=== PATIENT | female | born 1970 | race Caucasian/White ===

== ENCOUNTER 2022-01-30 08:03 | Inpatient (IN) ==
--- NOTE | 2022-01-12 15:06 | PAT Medication Instructions ---
Medication Instructions Date of Service January 12, 2022 Home Medications anastrozole 1 mg tablet (Arimidex) 1 mg PO QPM atorvastatin 40 mg tablet (Lipitor) 40 mg PO PM buspirone 5 mg tablet 5 mg PO BID PRN cholecalciferol (vitamin D3) 25 mcg (1,000 unit) tablet (Vitamin D3) 25 mcg PO BID clonidine HCl 0.1 mg tablet 0.2 mg PO BID coenzyme Q10 30 mg capsule (CoQ-10) 30 mg PO QAM cyanocobalamin (vitamin B-12) 1,000 mcg/mL injection solution 1,000 mcg IM MON LY diltiazem HCl 240 mg capsule,extended release 24 hr (Cardizem CD) 240 mg PO BID folic acid 1 mg tablet 1 mg PO QAM gabapentin 600 mg tablet 600 mg PO TID ibuprofen 800 mg tablet 800 mg PO TID PRN lisinopril 20 mg tablet 20 mg PO BID omega-3 fatty acids 4,000 mg PO QAM omeprazole 20 mg delayed release,disintegrating tablet 20 mg PO BID oxycodone-acetaminophen 7.5 mg-325 mg tablet (Percocet) 1 tab PO QID PRN polyethylene glycol 3350 17 gram/dose oral powder 17 g PO QAM pramipexole 0.125 mg tablet 0.5 mg PO HS tiotropium 2.5 mcg-olodaterol 2.5 mcg/actuation mist for inhalation (Stiolto Respimat) 2 puff INHALATION BID tizanidine 4 mg tablet 4 mg PO TID PRN trazodone 100 mg tablet 100 mg PO HS venlafaxine 150 mg capsule,extended release 24 hr (Effexor XR) 150 mg PO PM Continue as directed cyanocobalamin (vitamin B-12) 1,000 mcg/mL injection solution 1,000 mcg IM MONTHLY ASK your surgeon for instructions ibuprofen 800 mg tablet 800 mg PO TID PRN STOP taking 2 weeks before surgery coenzyme Q10 30 mg capsule (CoQ-10) 30 mg PO QAM omega-3 fatty acids 4,000 mg PO QAM DO NOT take the morning of surgery cholecalciferol (vitamin D3) 25 mcg (1,000 unit) tablet (Vitamin D3) 25 mcg PO BID folic acid 1 mg tablet 1 mg PO QAM lisinopril 20 mg tablet 20 mg PO BID polyethylene glycol 3350 17 gram/dose oral powder 17 g PO QAM tizanidine 4 mg tablet 4 mg PO TID PRN Take morning of surgery With a small sip of water, OTHERWISE NOTHING TO EAT OR DRINK AFTER MIDNIGHT: buspirone 5 mg tablet 5 mg PO BID PRN (if needed) clonidine HCl 0.1 mg tablet 0.2 mg PO BID diltiazem HCl 240 mg capsule,extended release 24 hr (Cardizem CD) 240 mg PO BID gabapentin 600 mg tablet 600 mg PO TID omeprazole 20 mg delayed release,disintegrating tablet 20 mg PO BID oxycodone-acetaminophen 7.5 mg-325 mg tablet (Percocet) 1 tab PO QID PRN (okay to take up to 4 hours prior to surgery if needed) tiotropium 2.5 mcg-olodaterol 2.5 mcg/actuation mist for inhalation (Stiolto Respimat) 2 puff INHALATION BID Take evening before surgery anastrozole 1 mg tablet (Arimidex) 1 mg PO QPM (unless surgeon directs otherwise) atorvastatin 40 mg tablet (Lipitor) 40 mg PO PM buspirone 5 mg tablet 5 mg PO BID PRN (if needed) cholecalciferol (vitamin D3) 25 mcg (1,000 unit) tablet (Vitamin D3) 25 mcg PO BID clonidine HCl 0.1 mg tablet 0.2 mg PO BID diltiazem HCl 240 mg capsule,extended release 24 hr (Cardizem CD) 240 mg PO BID gabapentin 600 mg tablet 600 mg PO TID lisinopril 20 mg tablet 20 mg PO BID omeprazole 20 mg delayed release,disintegrating tablet 20 mg PO BID oxycodone-acetaminophen 7.5 mg-325 mg tablet (Percocet) 1 tab PO QID PRN (if needed) pramipexole 0.125 mg tablet 0.5 mg PO HS tiotropium 2.5 mcg-olodaterol 2.5 mcg/actuation mist for inhalation (Stiolto Respimat) 2 puff INHALATION BID tizanidine 4 mg tablet 4 mg PO TID PRN (if needed) trazodone 100 mg tablet 100 mg PO HS venlafaxine 150 mg capsule,extended release 24 hr (Effexor XR) 150 mg PO PM Other Notes If you have any questions please call us at [phone] or [phone] or [phone] or [phone]
--- NOTE | 2022-01-17 11:43 | Anesthesiology Consultation ---
Date of Service January 17, 2022 Assessment & Plan (1) Encounter for pre-operative examination: - COVID screening: Per assessment on 01/17: No known COVID-19 positive contacts or current COVID-19 related symptoms. Travel screen negative. Patient vaccinated. Surgeon arranging preop COVID testing. Awaiting results. - RUE limb restriction: s/p right mastectomy - Cardiology office visit (08/17/21): "She was admitted to [facility] in May 2021 with lower GI bleeding. She had a CT scan of her abdomen done that showed ischemic versus inflammatory colitis. CT scan also showed coronary artery calcifications.. Patient currently complains of symptoms of atypical chest pain and exertional shortness of breath, which could be an anginal equivalent. She had a CT scan that showed coronary artery calcifications.. Patient should have a pharmacologic nuclear stress test done and if stress test shows abnormal perfusion, she will need a cardiac catheterization to define coronary anatomy. Continue risk factor modification for CAD prevention." Patient had subsequent nuclear stress echo performed 08/29/2021 which was unremarkable. Chart Review Chart Review: Acceptable Risk for Surgery and Patient seen in Pre Admission Testing Teaching & Discussion Pre-Anesthesia Teaching/Discussion Notes: Instructed NPO after midnight before surgery,except medications with 15 cc of water. Medication instructions provided according to the PAT guidelines. History Surgery Operation Date: 01/30/22 12:25 Proposed Procedures p L5-S1 Decompression and Fusion, Spinal Cord Monitoring - Geovanny Culp, Height/Weight Height: 5 ft 6 in Weight: 85.9 kg Allergies Allergy/AdvReac Type Severity Reaction Status Date / Time amlodipine [From Norvasc] AdvReac Elevated BP Verified 01/16/22 13:16 hydralazine AdvReac Elevated BP Verified 01/16/22 13:16 mirtazapine [From Remeron] AdvReac Vomiting Verified 01/12/22 12:25 prednisone AdvReac Increased Verified 01/16/22 13:16 pain (with oral prednisone) ropinirole [From Requip] AdvReac Vomiting Verified 01/12/22 12:25 Medications Home Medications Medication Instructions Recorded Confirmed Last Taken anastrozole 1 mg tablet (Arimidex) 1 mg PO QPM 01/12/22 01/12/22 Unknown atorvastatin 40 mg tablet (Lipitor) 40 mg PO PM 01/12/22 01/12/22 Unknown buspirone 5 mg tablet 5 mg PO BID PRN 01/12/22 01/12/22 Unknown cholecalciferol (vitamin D3) 25 25 mcg PO BID 01/12/22 01/12/22 Unknown mcg (1,000 unit) tablet (Vitamin D3) clonidine HCl 0.1 mg tablet 0.2 mg PO BID 01/12/22 01/12/22 Unknown coenzyme Q10 30 mg capsule (CoQ-10) 30 mg PO QAM 01/12/22 01/12/22 Unknown cyanocobalamin (vitamin B-12) 1,000 mcg IM MONTHLY 01/12/22 01/12/22 Unknown 1,000 mcg/mL injection solution diltiazem HCl 240 mg 240 mg PO BID 01/12/22 01/12/22 Unknown capsule,extended release 24 hr (Cardizem CD) folic acid 1 mg tablet 1 mg PO QAM 01/12/22 01/12/22 Unknown gabapentin 600 mg tablet 600 mg PO TID 01/12/22 01/12/22 Unknown ibuprofen 800 mg tablet 800 mg PO TID PRN 01/12/22 01/12/22 Unknown lisinopril 20 mg tablet 20 mg PO BID 01/12/22 01/12/22 Unknown omega-3 fatty acids 4,000 mg PO QA 01/12/22 01/12/22 Unknown omeprazole 20 mg delayed 20 mg PO BID 01/12/22 01/12/22 Unknown release,disintegrating tablet oxycodone-acetaminophen 7.5 mg-325 1 tab PO QID PRN 01/12/22 01/12/22 Unknown mg tablet (Percocet) polyethylene glycol 3350 17 17 g PO QA 01/12/22 01/12/22 Unknown gram/dose oral powder pramipexole 0.125 mg tablet 0.5 mg PO 01/12/22 01/12/22 Unknown tiotropium 2.5 mcg-olodaterol 2.5 2 puff INHALATION BID 01/12/22 01/12/22 Unknown mcg/actuation mist for inhalation (Stiolto Respimat) tizanidine 4 mg tablet 4 mg PO TID PRN 01/12/22 01/12/22 Unknown trazodone 100 mg tablet 100 mg PO 01/12/22 01/12/22 Unknown venlafaxine 150 mg 150 mg PO PM 01/12/22 01/12/22 Unknown capsule,extended release 24 hr (Effexor XR) Past Medical History Medical History (Updated 01/17/22 @ 14:12 by Renita Anderson) ADHD no meds Anxiety COPD (chronic obstructive pulmonary disease) Stable Coronary artery calcification Follows with Dr. Piña/cardiology Depression DJD (degenerative joint disease) Fibromyalgia GERD (gastroesophageal reflux disease) History of breast cancer Rt breast Dx 2019 - s/p right mastectomy, on Arimidex History of GI bleed 05/2021 (hospitalized with GIB; [facility]) > no blood transfusion required HLD (hyperlipidemia) HTN (hypertension) IBS (irritable bowel syndrome) Limb alert care status RUE Osteoarthritis Osteoporosis RLS (restless legs syndrome) Spinal stenosis TMJ (temporomandibular joint disorder) Hx issues x several years Exercise / Class Metabolic Activity III < 4 Walking/Shop/Light housework (one FS (no CP, occasional SOB)) Past Family History Family History Other No family history of adverse response to anesthesia Past Surgical History Surgical History History of arthroscopy ankle x 2 History of breast biopsy History of colonoscopy History of esophagogastroduodenoscopy (EGD) History of foot surgery Rt History of reconstruction of right breast multiple surgery - unsuccessful History of reduction surgery of left breast History of repair of left rotator cuff History of right knee joint replacement partial History of right mastectomy History of tonsillectomy and adenoidectomy History of total abdominal hysterectomy and bilateral salpingo-oophorectomy Past Anesthesia History No Hx of Anesthesia Complications Sister: slow to wake History of PONV No Hx of PONV and No Hx of Motion Sickness Social History Smoking Status: Current every day smoker tobacco type: cigarettes Smoking cigarettes per day: 40 cigs/day x 40+ years Do You Dip or Chew Tobacco: No Hx Alcohol Use: No Hx Substance Use: No substance use type: does not use Review of Systems Patient denies chest pain, shortness of breath, fever, chills, cough, wheezing, palpitations. Physical Exam Vital Signs VITALS BP 102/63 P 71 TEMP 98.2 SP02 95%RA RESP 16 PHYSICAL Full cervical extension range of motion. Full TMJ range of motion. TMD 1 finger breaths Mallampati Score 3 Dentition: missing molars, + cap Lungs: clear throughout to auscultation Cardiac: regular rate and rhythm, no murmurs noted Spine: normal Carotid arteries: negative bruit Extremities: no edema Lab Results Anesthesia Preop Results Results Anesthesia Widget: WBC 8.21 K/uL (4.8-10.8) 01/17/22 Hgb 11.8 g/dL (12.0-16.0) L 01/17/22 Hct 36.1 % (37-47) L 01/17/22 Plt 414 K/uL (130-400) H 01/17/22 Na 141 mmol/L (136-145) 01/17/22 K 4.9 mmol/L (3.5-5.1) 01/17/22 Cl 112 mmol/L (98-107) H 01/17/22 CO2 23 mmol/L (21-32) 01/17/22 BUN 15 mg/dl (6-23) 01/17/22 Creat 0.85 mg/dl (0.6-1.2) 01/17/22 Glucose Level 121 mg/dl (70-99(Fasting)) H 01/17/22 PT 10.3 Seconds (9.0-12.0) 01/17/22 PTT 26.2 Seconds (21.0-31.0) 01/17/22 INR 1.0 (0.9-1.1) 01/17/22 Urine Color Yellow 01/17/22 Urine Appearance Clear (Clear) 01/17/22 Urine pH 5.0 (4.5-7.5) 01/17/22 Urine Specific [place] 1.018 (1.000-1.030) 01/17/22 Urine Protein Negative (Negative) 01/17/22 Urine Glucose (UA) Negative (Negative) 01/17/22 Urine Ketones Negative (Negative) 01/17/22 Urine Blood Negative (Negative) 01/17/22 Urine Nitrite Negative (Negative) 01/17/22 Urine Bilirubin Negative (Negative) 01/17/22 Urine Urobilinogen Negative (Negative) 01/17/22 Urine Leukocyte Esterase Negative (Negative) 01/17/22 Blood Type O Negative 01/17/22 Antibody Screen NEGATIVE 01/17/22 Testing Electrocardiogram Date: 06/12/21 Sinus bradycardia 59 bpm. Otherwise normal ECG. Chest X-Ray Date: 01/17/22 FINDINGS: The cardiac mediastinal and hilar silhouettes are within normal limits. Surgical clips project over the right chest wall and axilla. There is no pneumothorax, pleural effusion, airspace consolidation or overt pulmonary edema. Bones of the chest appear grossly intact. Degenerative changes of the shoulders and spine. IMPRESSION: No acute process. Echocardiogram Date: 03/07/21 LVEF 60-65%. Mild TR. Stress Test Date: 08/29/21 Type: nuclear No significant ischemia/infarction. SPECT perfusion images are considered to be within normal limits. LVEF 76%.
[~2022-01-30 08:03] MED LIST: ACETAMINOPHEN 500 MG TAB PO SCH; CeleBREX 200 MG CAP PO SCH; GABAPENTIN 900 MG DOSE PO SCH; LR 15ML/HR IV SCH; SUGAMMADEX SODIUM 200 MG/2 ML VIAL IV ONE; ceFAZolin 2000MG 2,000 MG/15 ML SYR IV SCH
[2022-01-30] MEDS ORDERED: MIDAZOLAM HCL 1 MG/ML 2ML VIAL ONE (08:13)
[2022-01-30] MEDS ORDERED: ONDANSETRON INJ 2 MG/ML 2 ML VIAL ONE (08:13)
[2022-01-30] MEDS ORDERED: ROCURONIUM BROMIDE 10 MG/ML 5 ML VIAL IV ONE (08:13)
[2022-01-30] MEDS ORDERED: PROPOFOL IV EMULSION 10 MG/ML 20 ML VIAL IV ONE (08:13)
[2022-01-30] MEDS ORDERED: fentaNYL citrate 100 MCG/2 ML VIAL ONE ×3 (08:13→11:01)
[2022-01-30] MEDS ORDERED: ePHEDrine sulfate 50 MG/ML AMP IV PRN (09:16)
[2022-01-30] MEDS ORDERED: HYDROmorphone INJ 2 MG/ML SYR/VIAL IV PRN (09:16)
[2022-01-30] MEDS ORDERED: ONDANSETRON INJ 2 MG/ML 2 ML VIAL IV PRN ×2 (09:16→13:13)
[2022-01-30] MEDS ORDERED: ATROPINE SULFATE 0.1 MG/ML 10ML SYR IV PRN (09:16)
[2022-01-30] MEDS ORDERED: EPINEPHrine INJ 1 MG/ML AMP ONE (09:32)
[2022-01-30] MEDS ORDERED: BUPIVACAINE 0.5 % 5 MG/1 ML MPF 30ML VIAL ONE (09:32)
[2022-01-30] MEDS ORDERED: ceFAZolin 330 MG/ML 1 GM VIAL ONE (09:32)
--- NOTE | 2022-01-30 09:37 | History & Physical Bridge Note ---
Date of Service January 30, 2022 History & Physical Bridge Note I have examined the patient, reviewed the History & Physical and in the interval since the performance of the History & Physical I have noted the following changes of clinical significance: no changes noted
--- NOTE | 2022-01-30 09:38 | History & Physical Report ---
Date of Service January 30, 2022 History of Present Illness Chief Complaint: Back and leg pain Primary Care Provider: Clemencia Wilhelm MD This is a 51-year-old female presents with chronic persistent back and leg pain after failing course of nonoperative care she is here for surgical invention. Allergies Allergy/AdvReac Type Severity Reaction Status Date / Time amlodipine [From Norvasc] AdvReac Elevated BP Verified 01/30/22 08:40 hydralazine AdvReac Elevated BP Verified 01/30/22 08:40 mirtazapine [From Remeron] AdvReac Vomiting Verified 01/30/22 08:40 prednisone AdvReac Increased Verified 01/30/22 08:40 pain (with oral prednisone) ropinirole [From Requip] AdvReac Vomiting Verified 01/30/22 08:40 Home Medications Medication Instructions Recorded Confirmed Type anastrozole 1 mg tablet (Arimidex) 1 mg PO QPM 01/12/22 01/30/22 History atorvastatin 40 mg tablet (Lipitor) 40 mg PO PM 01/12/22 01/30/22 History buspirone 5 mg tablet 5 mg PO BID PRN 01/12/22 01/30/22 History cholecalciferol (vitamin D3) 25 25 mcg PO BID 01/12/22 01/30/22 History mcg (1,000 unit) tablet (Vitamin D3) clonidine HCl 0.1 mg tablet 0.2 mg PO BID 01/12/22 01/30/22 History coenzyme Q10 30 mg capsule (CoQ-10) 30 mg PO QAM 01/12/22 01/30/22 History cyanocobalamin (vitamin B-12) 1,000 mcg IM MONTHLY 01/12/22 01/30/22 History 1,000 mcg/mL injection solution diltiazem HCl 240 mg 240 mg PO BID 01/12/22 01/30/22 History capsule,extended release 24 hr (Cardizem CD) folic acid 1 mg tablet 1 mg PO QAM 01/12/22 01/30/22 History gabapentin 600 mg tablet 600 mg PO TID 01/12/22 01/30/22 History ibuprofen 800 mg tablet 800 mg PO TID PRN 01/12/22 01/30/22 History lisinopril 20 mg tablet 20 mg PO BID 01/12/22 01/30/22 History omega-3 fatty acids 4,000 mg PO QAM 01/12/22 01/30/22 History omeprazole 20 mg delayed 20 mg PO BID 01/12/22 01/30/22 History release,disintegrating tablet oxycodone-acetaminophen 7.5 mg-325 1 tab PO QID PRN 01/12/22 01/30/22 History mg tablet (Percocet) polyethylene glycol 3350 17 17 g PO QAM 01/12/22 01/30/22 History gram/dose oral powder pramipexole 0.125 mg tablet 0.5 mg PO HS 01/12/22 01/30/22 History (Mirapex) tiotropium 2.5 mcg-olodaterol 2.5 2 puff INHALATION BID 01/12/22 01/30/22 History mcg/actuation mist for inhalation (Stiolto Respimat) tizanidine 4 mg tablet (Zanaflex) 4 mg PO TID PRN 01/12/22 01/30/22 History trazodone 100 mg tablet 100 mg PO HS 01/12/22 01/30/22 History venlafaxine 150 mg 150 mg PO PM 01/12/22 01/30/22 History capsule,extended release 24 hr (Effexor XR) Past Med/Surg History Medical History ADHD no meds Anxiety COPD (chronic obstructive pulmonary disease) Stable Coronary artery calcification Follows with Dr. Piña/cardiology Depression DJD (degenerative joint disease) Fibromyalgia GERD (gastroesophageal reflux disease) History of breast cancer Rt breast Dx 2019 - s/p right mastectomy, on Arimidex History of GI bleed 05/2021 (hospitalized with GIB; [facility]) > no blood transfusion required HLD (hyperlipidemia) HTN (hypertension) IBS (irritable bowel syndrome) Limb alert care status RUE Osteoarthritis Osteoporosis RLS (restless legs syndrome) Spinal stenosis TMJ (temporomandibular joint disorder) Hx issues x several years Surgical History History of arthroscopy ankle x 2 History of breast biopsy History of colonoscopy History of esophagogastroduodenoscopy (EGD) History of foot surgery Rt History of reconstruction of right breast multiple surgery - unsuccessful History of reduction surgery of left breast History of repair of left rotator cuff History of right knee joint replacement partial History of right mastectomy History of tonsillectomy and adenoidectomy History of total abdominal hysterectomy and bilateral salpingo-oophorectomy Family History Other No family history of adverse response to anesthesia Social History Smoking Status: Current every day smoker Cigarettes Per Day: 40 cigs/day x 40+ years; Second Hand Exposure: Yes; Do You Dip or Chew Tobacco: No; Tobacco Cessation Education Requested by Patient: No Hx Alcohol Use: No Hx Substance Use: No Preferred Language: Turkmen Communication Ability: Effective 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
[2022-01-30] MEDS ORDERED: FLOSEAL HEMOSTATIC MATRIX 10ML TOP ONE (10:24)
--- NOTE | 2022-01-30 11:16 | Operative Report ---
Post Operative Report Pre & Post Diagnosis Operation Date: 01/30/22 10:05 Pre-Op Diagnosis: Radiculopathy, Lumbar Region Post-Op Diagnosis: Radiculopathy, Lumbar Region I identified the patient and participated in the time-out.: Yes Procedure Operation Date: 01/30/22 10:05 Actual Procedures 1 lumbar decompression with bilateral medial facetectomies and foraminotomies L4-L5 L5-S1. #2 posterior spinal fusion L5-S1. #3 placement posterior instrumentation L5-S1. #4 interbody fusion L5-S1. #5 placement of Spira 14 x 26 mm cage at L5-S1. #6 placement locally harvested morselized autograft in the posterior gutters. #7 placement of I factor combined with V toss in the posterior lateral gutters and interbody space. Surgeon Geovanny Culp, Precast Molder Taylor Gonzalez Estimated Blood Loss 100 Findings Consistent with Post-Op Diagnosis Specimens None Indications This is a 51-year-old female who presents above-mentioned diagnosis after failed course of nonoperative care is here for surgical invention. Description of Procedure Patient met with identified informed consent obtained. Patient was then taken to the operative suite underwent intubation and placed in a prone position the Elio on top of the Vincent frame.. All bony prominences well-padded eyes inspected to ensure no external pressure placed upon them. This point lumbar spine was prepped and draped in a sterile fashion. Sharp dissection with the assistance of Bovie cautery to form down to and exposing the lamina and transverse processes of L5 and the sacral ala bilaterally. Obvious facet hypertrophy and overgrowth was appreciated. A complete laminectomy of L5 partial laminectomy of L4 was performed including bilateral medial facetectomies and foraminotomies addressing all lateral recess stenosis as well as a massive facet cyst on the left with significant encroachment of the traversing S1 nerve root. After complete decompression pedicle screws were placed in L5 and S1 levels bilaterally with assistance of fluoroscopy and the proper sized amanda placed. By way of a transit foraminal approach on the left pleat discectomy of L5-S1 was performed endplates curetted to subcortical bleeding bone and a 14 x 26 mm spiral cage filled with I factor tapped in position. The rods then compressed locked into final position bilaterally. The transverse processes of L5 and sacral ala burred to subcortical bleeding bone. I factor combined with V toss was placed in the posterior gutters. 15 round EVANGELINA drain inserted. The incision was then closed with 1 Vicryl the fascia 2-0 Vicryl subcutaneously and 4 Monocryl for final skin closure. Steri-Strip Steri-Strips placed. Patient waken taken PACU stable condition. Please note spinal cord monitoring was utilized at the procedure no changes noted. Lastly Taylor Gonzalez was present out the entire surgery involved the patient positioning complex portions of the surgery and fascial closure. I attest to the content of the Intraoperative Record and any orders documented therein. Any exceptions are noted below.
[2022-01-30] MEDS: fentaNYL citrate 100 MCG/2 ML VIAL IV PRN ×4 (11:40→11:55)
--- NOTE | 2022-01-30 11:43 | Fluoroscopy Report ---
INTRAOPERATIVE RADIOGRAPHS CLINICAL HISTORY: Lumbar spinal fusion. Fluoroscopy time: 20 seconds. FINDINGS: 2 spot fluoroscopic views of the lumbar spine are presented. There has been discectomy at L 5-S1 with laminectomy and posterior fusion at this level. Interpedicular screws are in place. The ort hopedic hardware appears intact. IMPRESSION: Intraoperative images from lumbar spinal fusion surgery as above. Electronically signed by: Nilesh Baker M.D. 01/30/2022 11:42 AM
--- NOTE | 2022-01-30 12:16 | Anesthesiology Progress Note ---
Date of Service January 30, 2022 Anesthesia Post Procedure Vital Signs Vital Signs: Temp Pulse Pulse Resp BP Pulse Ox 01/30/22 12:10 78 12 121/63 97 01/30/22 12:00 83 12 120/61 94 01/30/22 11:50 102 H 14 121/85 96 01/30/22 11:40 113 H 16 158/87 H 97 01/30/22 11:34 97.3 F L 113 H 12 172/117 H 98 01/30/22 08:46 97.7 F 60 18 115/60 96 Pain Intensity Left Lower Back: Pain Intensity: 7 Neck: Pain Intensity: 7 Back: Pain Intensity: 5 Transfer of Care Handoff Completed per policy Notes Mental Status: alert / awake / arousable and participated in evaluation Patient Amnestic to Procedure: Yes Nausea / Vomiting: adequately controlled Pain: adequately controlled Airway Patency, RR, SpO2: stable & adequate BP & HR: stable & adequate Hydration State: stable & adequate Anesthetic Complications: no major complications apparent and Pt Satisfied with anesthetic care
[2022-01-30] MEDS ORDERED: busPIRone 5 MG TAB PO PRN (13:13)
[2022-01-30] MEDS ORDERED: ONDANSETRON 4 MG OD TAB PO PRN (13:13)
[2022-01-30] MEDS ORDERED: LORazepam 2 MG/1 ML VIAL IV PRN (13:13)
[2022-01-30] MEDS ORDERED: CYANOCOBALAMIN 1000 MCG/ML VIAL IM SCH (13:13)
[2022-01-30] MEDS ORDERED: PROMETHAZINE HCL 12.5 MG in SODIUM CHLORIDE 0.9% 50 ML IV PRN (13:13)
[2022-01-30] MEDS ORDERED: hydrOXYzine HCl 25 MG TAB PO PRN (13:13)
[2022-01-30] MEDS ORDERED: SOD PHOSPHATE/SOD BIPHOSPHATE ENEMA 132 ML BTL PR PRN (13:13)
[2022-01-30] MEDS ORDERED: DO NOT ADMINISTER PNEUMOCOCCAL VACCINE PRN (13:13)
[2022-01-30] MEDS ORDERED: ALUMINUM/MAGNESIUM SUSP 30 ML UDC PO PRN (13:13)
[2022-01-30] MEDS ORDERED: diphenhydrAMINE Capsule 25 MG CAP PO PRN (13:13)
[2022-01-30] MEDS ORDERED: ACETAMINOPHEN 1,000 MG/100 ML VIAL IV PRN (13:13)
[2022-01-30] MEDS ORDERED: METOCLOPRAMIDE HCL INJ 5 MG/ML 2 ML VIAL IV PRN (13:13)
[2022-01-30] MEDS ORDERED: ACETAMINOPHEN 500 MG TAB PO PRN (13:13)
[2022-01-30] MEDS ORDERED: DO NOT ADMINISTER FLU VACCINE PRN (13:13)
[2022-01-30] MEDS ORDERED: traMADol HCL 50 MG TABLET PO PRN (13:13)
[2022-01-30] MEDS ORDERED: NALOXONE HCL 0.4 MG/1 ML VIAL/CARP IV PRN (13:13)
[2022-01-30] MEDS ORDERED: bisacodyL 10 MG SUPP PR PRN (13:13)
[2022-01-30] MEDS ORDERED: HYDROmorphone INJ 1 MG/ML SYRINGE IV PRN (13:13)
[2022-01-30] MEDS ORDERED: LORazepam 0.5 MG TAB PO PRN (13:13)
[2022-01-30] MEDS ORDERED: MAGNESIUM HYDROXIDE SUSP 30 ML UDC PO PRN (13:13)
[2022-01-30] MEDS ORDERED: FAMOTIDINE 20 MG TAB PO PRN (13:13)
[2022-01-30] MEDS ORDERED: HYDROmorphone INJ 0.5 MG/0.5 ML SYR IV PRN (13:13)
--- NOTE | 2022-01-30 14:14 | Hospitalist Consultation ---
Date of Consultation January 30, 2022 Assessment & Plan (1) Lumbar radiculopathy: POD #0 - Lumbar decompression and fusion by Dr. Culp - Pain control, PT, DVT Prophylaxis per primary service - Encourage OOB as tolerated, incentive spirometry - Add nicotine patch - Labs in AM (2) COPD (chronic obstructive pulmonary disease): (3) HTN (hypertension): (4) HLD (hyperlipidemia): (5) Depression: (6) Anxiety: (7) Coronary artery calcification: (8) GERD (gastroesophageal reflux disease): (9) RLS (restless legs syndrome): (10) Tobacco abuse: Continue other home meds as appropriate. Pt seen and reviewed with collaborating physician, Dr. Kumari. Plan of care discussed and as outlined above. Thank you for this consultation. We will continue to follow the patient with you. A member of the [facility] Hospitalist Team is available 09/04 via [employer]. Please don't hesitate to reach out with questions. Lorena Garrett PA-C Supervising Physician Co-Signing Physician Notes Patient was seen and examined at bedside independently. Chart reviewed. Case discussed with Sahara DOTSON and agree with the documentation above. In summary, this is a 51 year old female with lumbar radiculopathy who failed non- operative management and hence underwent lumbar decompression L4-S1 with posterior spinal fusion L5-S1 (1 lumbar decompression with bilateral medial facetectomies and foraminotomies L4-L5 L5-S1. #2 posterior spinal fusion L5- S1. #3 placement posterior instrumentation L5-S1. #4 interbody fusion L5-S1. #5 placement of Spira 14 x 26 mm cage at L5-S1. #6 placement locally harvested morselized autograft in the posterior gutters. #7 placement of I factor combined with V toss in the posterior lateral gutters and interbody space). Hospitalist service consulted for post op management. Complaining of pain and waiting for pain medication. No other issues. No N/V. Tolerated jelloes and broth without issues. States she is hoping to walk tonight. AAOX3, sitting in bed, in some discomfort due to pain. Chest clear, heart sounds normal, abdomen benign, no edema, Incision site covered with dressing with EVANGELINA drain draining serosanguineous output. Dr Culp is the primary team. Diet, activities, DVT prophylaxis and pain management per primary team. Continue home BP meds with hold parameters. Nicoderm patch for tobacco abuse. IS. Chronic medical conditions stable. Rest per the note above. History of Present Illness Reason for Consultation: Post-Op Medical Management Requesting Physician: Dr. Geovanny Culp Attending Physician: Geovanny Culp, DO History of Present Illness This is a 51 y/o female with a PMH of HTN, COPD, coronary calcifications on CT, tobacco abuse, anxiety, depression, GI bleed, OA, osteoporosis, spinal stenosis, fibromyalgia, and breast cancer s/p mastectomy and on Arimidex who underwent lumbar decompression and fusion today by Dr. Culp. Pt reports chronic issues with back pain but worsening since June and now interfering with quality of life. Pain would radiate down bilateral legs with associated paraesthesias. Currently, pt reports she is mostly having incisional pain but no pain or paraesthesias in legs. Denies chest pain, palpitations, dyspnea, nausea, vomiting, headache, sore throat, dizziness. Pt was noted last fall to have coronary calcifications on CT so she saw cardiology as part of the pre-operative evaluation and underwent a nuclear stress test in August that was negative for ischemia. Pt reports that she continues to smoke 2 PPD - she denied cravings l ast fall during a one week hospitalization for GI bleed but would like a nicotine patch while admitted this time. She notes chronic dry mouth due to the Arimidex that she has been on for breast cancer - she uses Biotene with relief at home and would also like to use this while admitted. Allergies Allergy/AdvReac Type Severity Reaction Status Date / Time amlodipine [From Norvasc] AdvReac Elevated BP Verified 01/30/22 08:40 hydralazine AdvReac Elevated BP Verified 01/30/22 08:40 mirtazapine [From Remeron] AdvReac Vomiting Verified 01/30/22 08:40 prednisone AdvReac Increased Verified 01/30/22 08:40 pain (with oral prednisone) ropinirole [From Requip] AdvReac Vomiting Verified 01/30/22 08:40 Home Medications Medication Instructions Recorded Confirmed Type anastrozole 1 mg tablet (Arimidex) 1 mg PO QPM 01/12/22 01/30/22 History atorvastatin 40 mg tablet (Lipitor) 40 mg PO PM 01/12/22 01/30/22 History buspirone 5 mg tablet 5 mg PO BID PRN 01/12/22 01/30/22 History cholecalciferol (vitamin D3) 25 25 mcg PO BID 01/12/22 01/30/22 History mcg (1,000 unit) tablet (Vitamin D3) clonidine HCl 0.1 mg tablet 0.2 mg PO BID 01/12/22 01/30/22 History coenzyme Q10 30 mg capsule (CoQ-10) 30 mg PO QAM 01/12/22 01/30/22 History cyanocobalamin (vitamin B-12) 1,000 mcg IM MONTHLY 01/12/22 01/30/22 History 1,000 mcg/mL injection solution diltiazem HCl 240 mg 240 mg PO BID 01/12/22 01/30/22 History capsule,extended release 24 hr (Cardizem CD) folic acid 1 mg tablet 1 mg PO QAM 01/12/22 01/30/22 History gabapentin 600 mg tablet 600 mg PO TID 01/12/22 01/30/22 History ibuprofen 800 mg tablet 800 mg PO TID PRN 01/12/22 01/30/22 History lisinopril 20 mg tablet 20 mg PO BID 01/12/22 01/30/22 History omega-3 fatty acids 4,000 mg PO QAM 01/12/22 01/30/22 History omeprazole 20 mg delayed 20 mg PO BID 01/12/22 01/30/22 History release,disintegrating tablet oxycodone-acetaminophen 7.5 mg-325 1 tab PO QID PRN 01/12/22 01/30/22 History mg tablet (Percocet) polyethylene glycol 3350 17 17 g PO QAM 01/12/22 01/30/22 History gram/dose oral powder pramipexole 0.125 mg tablet 0.5 mg PO HS 01/12/22 01/30/22 History (Mirapex) tiotropium 2.5 mcg-olodaterol 2.5 2 puff INHALATION BID 01/12/22 01/30/22 History mcg/actuation mist for inhalation (Stiolto Respimat) tizanidine 4 mg tablet (Zanaflex) 4 mg PO TID PRN 01/12/22 01/30/22 History trazodone 100 mg tablet 100 mg PO HS 01/12/22 01/30/22 History venlafaxine 150 mg 150 mg PO PM 01/12/22 01/30/22 History capsule,extended release 24 hr (Effexor XR) oxycodone 5 mg tablet 5 mg PO Q6H PRN #30 tab 01/30/22 Rx tramadol 50 mg tablet 50 mg PO Q6H PRN #30 tab 01/30/22 Rx Patient History Medical History (Updated 01/30/22 @ 14:46 by Sahara Garrett PA-C) ADHD no meds Anxiety COPD (chronic obstructive pulmonary disease) Stable Coronary artery calcification Follows with Dr. Piña/cardiology Depression DJD (degenerative joint disease) Fibromyalgia GERD (gastroesophageal reflux disease) History of breast cancer Rt breast Dx 2019 - s/p right mastectomy, on Arimidex History of GI bleed 05/2021 (hospitalized with GIB; [facility]) > no blood transfusion required HLD (hyperlipidemia) HTN (hypertension) IBS (irritable bowel syndrome) Limb alert care status RUE Osteoarthritis Osteoporosis RLS (restless legs syndrome) Spinal stenosis TMJ (temporomandibular joint disorder) Hx issues x several years Surgical History History of arthroscopy ankle x 2 History of breast biopsy History of colonoscopy History of esophagogastroduodenoscopy (EGD) History of foot surgery Rt History of reconstruction of right breast multiple surgery - unsuccessful History of reduction surgery of left breast History of repair of left rotator cuff History of right knee joint replacement partial History of right mastectomy History of tonsillectomy and adenoidectomy History of total abdominal hysterectomy and bilateral salpingo-oophorectomy Family History Other No family history of adverse response to anesthesia Social History Smoking Status: Current every day smoker Cigarettes Per Day: 40 cigs/day x 40+ years; Second Hand Exposure: Yes; Do You Dip or Chew Tobacco: No; Tobacco Cessation Education Requested by Patient: No Hx Alcohol Use: No Hx Substance Use: No Preferred Language: Nepali Communication Ability: Effective Ticket Agent Required: No Beliefs That Will Affect Care: None Current Living Situation: Spouse Feels Safe at Home: Yes Safety Concerns: Feels Safe At This Time Assistive Devices: Glasses Review of Systems Review of Systems: All systems reviewed & are unremarkable except as noted in HPI & below Constitutional: no fever and no chills Eyes: no diplopia Ear, Nose, Mouth, Throat: + dry mouth; no sore throat Respiratory: no dyspnea and no wheezing Cardiovascular: no chest pain, no palpitations and no syncope Gastrointestinal: no abdominal pain, no nausea and no vomiting Musculoskeletal: + back pain Integumentary: no rash and no yellowing of the skin Neurologic: no seizure-like activity, no dizziness and no headache(s) Physical Exam Constitutional: well developed and well nourished; no acute distress Eyes: + anicteric sclerae ENMT: external ear and nose normal, oropharynx normal Neck: trachea midline Respiratory: no respiratory distress and no labored breathing Auscultation: lungs clear to auscultation bilaterally; no rales, no rhonchi and no wheezes Cardiovascular: Rate/Rhythm: regular rate and regular rhythm Vessels: dorsalis pedis pulses present and radial pulses present Extremities: no pedal edema Gastrointestinal (Abdomen): Inspection/Auscultation: normal bowel sounds; abdomen not distended Percussion/Palpation: abdomen soft; abdomen nontender Musculoskeletal: Head/Neck/Chest: normocephalic, head atraumatic and neck supple Skin: dressing in lumbar area is C/D/I Neurologic: moves all extremities; not confused Speech / Cognition: normal speech Psychiatric: A+Ox3, euthymic affect Results & Data Results & Data ([facility]) Vital Signs (Past 12 Hours) Vital Signs Temp Pulse Pulse Resp BP Pulse Ox 01/30/22 13:10 36.5 C 72 16 130/73 100 01/30/22 12:40 36.6 C 91 H 16 116/80 92 01/30/22 12:30 36.2 C L 82 21 146/72 H 97 01/30/22 12:20 36.2 C L 78 13 136/69 97 01/30/22 12:10 78 12 121/63 97 01/30/22 12:00 83 12 120/61 94 01/30/22 11:50 102 H 14 121/85 96 01/30/22 11:40 113 H 16 158/87 H 97 01/30/22 11:34 36.3 C L 113 H 12 172/117 H 98 01/30/22 08:46 36.5 C 60 18 115/60 96 Laboratory Results 01/30/22 08:54 SARS-CoV-2, RNA, NAAT NEGATIVE Medications Administered Acetaminophen (Acetaminophen 500 Mg Tab) 1,000 mg PO PREOP RUFUS Stop: 01/30/22 18:00 Last Admin: 01/30/22 09:13 Dose: 1,000 mg Documented by: [id number] Celecoxib (Celebrex 200 Mg Cap) 200 mg PO PREOP RUFUS Stop: 01/30/22 18:00 Last Admin: 01/30/22 09:13 Dose: 200 mg Documented by: [id number] Fentanyl Citrate (Fentanyl Citrate 100 Mcg/2 Ml Vial) 50 mcg IV Q5M PRN PRN Reason: PACU Use Only-Pain Stop: 01/30/22 17:16 Last Admin: 01/30/22 11:55 Dose: 50 mcg Documented by: [id number] Admin: 01/30/22 11:50 Dose: 50 mcg Documented by: [id number] Admin: 01/30/22 11:45 Dose: 50 mcg Documented by: [id number] Admin: 01/30/22 11:40 Dose: 50 mcg Documented by: [id number] Gabapentin (Gabapentin 900 Mg Dose) 900 mg PO PREOP RUFUS Stop: 01/30/22 18:00 Last Admin: 01/30/22 09:13 Dose: 300 mg Documented by: [id number] Cefazolin Sodium (Ancef 2000mg) 2,000 mg in 15 mls @ 3.75 mls/min IV PREOP RUFUS; Protocol Stop: 01/30/22 18:00 Last Admin: 01/30/22 10:10 Dose: 3.75 mls/min Documented by: [id number] Lactated Ringer's (Lr) 1,000 mls @ 15 mls/hr IV .Q24H RUFUS Stop: 01/31/22 05:59 Last Infusion: 01/30/22 09:48 Dose: 0 mls/hr Documented by: [id number] Admin: 01/30/22 09:13 Dose: 15 mls/hr Documented by: [id number] Discontinued Medications Bupivacaine HCl (Bupivacaine 0.5 % 5 Mg/1 Ml Mpf 30ml Vial) Confirm Administered Dose 30 ml .ROUTE .STK-MED ONE Stop: 01/30/22 09:33 Last Admin: 01/30/22 10:23 Dose: 15 ml Documented by: [id number] Cefazolin Sodium (Cefazolin 330 Mg/Ml 1 Gm Vial) Confirm Administered Dose 990 mg .ROUTE .STK-MED ONE Stop: 01/30/22 09:33 Last Admin: 01/30/22 10:23 Dose: 990 mg Documented by: [id number] Epinephrine HCl (Epinephrine Inj 1 Mg/Ml Amp) Confirm Administered Dose 1 mg .ROUTE .STK-MED ONE Stop: 01/30/22 09:33 Last Admin: 01/30/22 10:23 Dose: 0.15 mg Documented by: [id number] Miscellaneous ( Floseal Hemostatic Matrix 10ml) 10 ml TOP ONCE ONE Stop: 01/30/22 10:25 Last Admin: 01/30/22 11:08 Dose: 10 ml Documented by: [id number]
[2022-01-30] MEDS ORDERED: NON-FORMULARY PATIENT'S OWN MED SCH (14:30)
[2022-01-30] MEDS: tiZANidine HCL 4 MG TABLET PO PRN ×2 (15:38→23:58)
[2022-01-30] MEDS: GABAPENTIN 600 MG TAB PO SCH ×2 (15:39→20:07)
[2022-01-30] MEDS: NICOTINE 21 MG/24 HR TDSY TD SCH (16:04)
[2022-01-30] MEDS: oxyCODONE HCL IR 5 MG TAB (IMMEDIATE RELEASE) PO PRN ×2 (17:28→21:30)
[2022-01-30] MEDS: ceFAZolin 2000MG 2,000 MG/15 ML SYR IV SCH (18:22)
[2022-01-30] MEDS: LACTATED RINGER'S 1,000 ML IV SCH (18:23)
[2022-01-30] MEDS: CHOLECALCIFEROL 1,000 UNITS 25 MCG TAB PO SCH (20:05)
[2022-01-30] MEDS: ANASTROZOLE 1 MG TAB PO SCH (20:05)
[2022-01-30] MEDS: ATORVASTATIN 40 MG TAB PO SCH (20:05)
[2022-01-30] MEDS: cloNIDine HCL 0.1 MG TAB PO SCH (20:06)
[2022-01-30] MEDS: DOCUSATE SODIUM/SENNA 50/8.6MG TAB PO SCH (20:06)
[2022-01-30] MEDS: dilTIAZem HCL 240 MG CAPCR PO SCH (20:06)
[2022-01-30] MEDS: PANTOprazole 40 MG TAB PO SCH (20:07)
[2022-01-30] MEDS: lisinopril 20 MG TAB PO SCH (20:07)
[2022-01-30] MEDS: PRAMIPEXOLE DIHYDROCHLO 0.5 MG TAB PO SCH (20:08)
[2022-01-30] MEDS: traZODone HCL 100 MG TAB PO SCH (20:08)
[2022-01-30] MEDS: VENLAFAXINE HCL XR 150 MG CAPXR PO SCH (20:08)
[2022-01-31] MEDS: ceFAZolin 2000MG 2,000 MG/15 ML SYR IV SCH (01:41)
[2022-01-31] MEDS: oxyCODONE HCL IR 5 MG TAB (IMMEDIATE RELEASE) PO PRN ×6 (01:41→22:51)
[2022-01-31] MEDS: POLYETHYLENE (MIRALAX) 17 GM PACK PO SCH ×4 (05:09→23:31)
[2022-01-31] MEDS: LACTATED RINGER'S 1,000 ML IV SCH (06:15)
[2022-01-31 07:12] LABS: Basophils # (auto) 0.01 K/uL (0-0.2); Basophils % (auto) 0.1 %; Eosinophils # (auto) 0.07 K/uL (0-0.5); Eosinophils % (auto) 0.7 %; Hematocrit (blood only) 31.2 % (37-47); Immature Granulocytes # (auto) 0.06 K/uL (0.00-0.02); Immature Granulocytes % (auto) 0.6 %; Lymphocytes # (auto) 1.23 K/uL (1.2-3.4); Lymphocytes % (auto) 11.4 %; Mean Corpuscular Hemoglobin 31.3 pg (25-34); Mean Corpuscular Hgb Conc 32.1 g/dL (32-36); Mean Corpuscular Volume 97.8 fL (80-100); Mean Platelet Volume 8.6 fL (7.4-10.4); Monocytes # (auto) 0.77 K/uL (0.11-0.59); Monocytes % (auto) 7.2 %; Neutrophils # (auto) 8.61 K/uL (1.4-6.5); Platelet Count 358 K/uL (130-400); RDW Coefficient of Variation 14.5 % (11.5-14.5); RDW Standard Deviation 52.1 fL (36.4-46.3); Red Blood Count 3.19 M/uL (4.2-5.4); White Blood Count 10.75 K/uL (4.8-10.8)
[2022-01-31 07:26] LABS: BUN Creatinine Ratio 14.7 (10-20); Calcium 9.2 mg/dl (8.5-10.1); Creatinine Clr Calc Pharmacy 64.9 ml/min; Est GFR (African American) 67.1 ml/min; Est GFR (Non-African American) 57.9 ml/min; Potassium 4.8 mmol/L (3.5-5.1)
[2022-01-31] MEDS ORDERED: COENZYME Q10 30 MG PO SCH (09:00)
[2022-01-31] MEDS ORDERED: POLYETHYLENE (MIRALAX) 17 GM PACK PO SCH (09:00)
[2022-01-31] MEDS: FOLIC ACID 1 MG TAB PO SCH (09:12)
[2022-01-31] MEDS: NICOTINE 21 MG/24 HR TDSY TD SCH (09:13)
[2022-01-31] MEDS: PANTOprazole 40 MG TAB PO SCH ×2 (09:13→20:50)
[2022-01-31] MEDS: CHOLECALCIFEROL 1,000 UNITS 25 MCG TAB PO SCH ×2 (09:14→20:50)
[2022-01-31] MEDS: GABAPENTIN 600 MG TAB PO SCH ×3 (09:14→20:49)
[2022-01-31] MEDS: UMECLIDINIUM/VILANTEROL 62.5/25MCG 7 PUFFS/INHALER INH SCH (09:17)
[2022-01-31] MEDS: lisinopril 20 MG TAB PO SCH ×2 (09:17→18:46)
[2022-01-31] MEDS: dilTIAZem HCL 240 MG CAPCR PO SCH ×2 (09:17→18:45)
[2022-01-31] MEDS: cloNIDine HCL 0.1 MG TAB PO SCH ×2 (09:17→18:45)
[2022-01-31] MEDS: dexAMETHasone 6 MG in SYRINGE 0 ML IV SCH (09:20)
--- NOTE | 2022-01-31 12:12 | Orthopedic Progress Note ---
Date of Service January 31, 2022 Assessment & Plan (1) Lumbar radiculopathy: Plan: At this time we will continue physical therapy monitor her EVANGELINA operatively discharge home in the next few days. Admission and Anticipated Discharge Date Admission Date: January 30, 2022 Subjective Patient's back pain is controlled leg symptoms markedly improved Physical Exam Physical Exam: Patient is in the chair at the bedside is good strength testing. Appears comfortable. Results & Data ([facility]) Vital Signs (Past 12 Hours) Vital Signs Temp Pulse Resp BP Pulse Ox 01/31/22 11:58 37.1 C 54 L 16 84/58 L 93 01/31/22 07:51 36.5 C 50 L 16 82/50 L 94 01/31/22 04:00 36.5 C 56 L 14 88/42 L 96
--- NOTE | 2022-01-31 17:06 | Hospitalist Progress Note ---
Date of Service January 31, 2022 Assessment & Plan (1) Lumbar radiculopathy: Plan: POD #1 - Lumbar decompression and fusion by Dr. Culp - Pain control, PT, DVT Prophylaxis per primary service - Encourage OOB as tolerated, incentive spirometry (2) COPD (chronic obstructive pulmonary disease): Plan: not in exacerbation. still using tobacco and contemplative phase. (3) HTN (hypertension): Plan: at goal, cont current medications (4) HLD (hyperlipidemia): Plan: chronic, stable. Cont current therapy (5) Depression: Plan: chronic, stable. Cont current medications. I educated patient on danger of polypharmacy and she verbalized understanding. (6) Anxiety: Plan: chronic, stable. Plan as above (7) RLS (restless legs syndrome): Plan: chronic, stable. Cont current therapy per home regimen. (8) Tobacco abuse: Plan: contemplative phase. Nicotine patch Plan: DVT proph: SCDs/ambulation in post op state Full Code Dispo-to home per Ortho service. Thank you for this consultation. Pam Brown DO [facility] Hospitalist Admission and Anticipated Discharge Date Admission Date: January 30, 2022 Subjective 51-year-old female status post L5/S1 decompression and fusion yesterday Pain managed with oxycodone Postoperative hypotension with an improvement in blood pressure throughout the day Patient is a smoker and resistant to quitting "It is what it is" despite known issues with breast cancer Tolerating p.o. Reports her feet are feeling better and less like she is walking on rocks. Review of Systems Review of Systems: All systems were reviewed and negative except as indicated above Physical Exam Physical Exam: CONSTITUTIONAL: WNWD, vitals as above, generally well- appearing, NAD EYES: normal conjunctivae, no scleral icterus ENT: external ear and nose normal, MMM NECK: trachea midline RESPIRATORY: clear to auscultation bilaterally, no crackles, rales or wheezes, normal respiratory effort CARDIOVASCULAR: regular rate and rhythm, S1 and 2 heard without murmurs, gallops or rubs, no JVD, no peripheral edema CHEST: inspection of chest was normal GASTROINTESTINAL: soft, nontender, ND, no guarding, back brace in place MUSCULOSKELETAL: strength 5/5 throughout, head is normocephalic and atraumatic SKIN: warm and dry, unable to examine back incision 2/[address] NEUROLOGIC: no facial palsy, no dysarthria. CN 2-12 grossly intact, no sensory deficit, normal cognition, normal speech, no tremor, no gross focal deficitss. PSYCHIATRIC: alert cooperative and oriented to person, place and time. Results & Data Results & Data ([facility]) Vital Signs (Past 12 Hours) Vital Signs Temp Pulse Pulse Resp BP Pulse Ox 01/31/22 15:18 36.6 C 57 L 16 117/69 94 01/31/22 11:58 37.1 C 54 L 16 84/58 L 93 01/31/22 07:51 36.5 C 50 L 16 82/50 L 94 Laboratory Results Short CBC 01/31/22 Range/Units 06:31 WBC 10.75 (4.8-10.8) K/uL Hgb 10.0 L (12.0-16.0) g/dL Hct 31.2 L (37-47) % Plt Count 358 (130-400) K/uL BMP 01/31/22 06:31 Sodium 134 L Potassium 4.8 Chloride 103 Carbon Dioxide 26 BUN 16 Creatinine 1.09 Glucose 113 H Calcium 9.2 Medications Administered Current Inpatient Medications Acetaminophen (Acetaminophen 500 Mg Tab) 1,000 mg PO Q8H PRN PRN Reason: MILD Pain Scale 1,2,3 & Pre PT Stop: 03/01/22 13:12 Al Hydrox/Mg Hydrox/Simethicone (Aluminum/Magnesium Susp 30 Ml Udc) 30 ml PO Q6H PRN PRN Reason: Dyspepsia Stop: 03/01/22 13:12 Anastrozole (Anastrozole 1 Mg Tab) 1 mg PO QPM RUFUS Stop: 03/01/22 20:59 Last Admin: 01/30/22 20:05 Dose: 1 mg Documented by: Atorvastatin Calcium (Atorvastatin 40 Mg Tab) 40 mg PO PM RUFUS Stop: 03/01/22 20:59 Last Admin: 01/30/22 20:05 Dose: 40 mg Documented by: Bisacodyl (Bisacodyl 10 Mg Supp) 10 mg NC DAILY PRN PRN Reason: Constipation Stop: 03/01/22 13:12 Buspirone HCl (Buspirone 5 Mg Tab) 5 mg PO BID PRN PRN Reason: Anxiety Stop: 03/01/22 13:12 Clonidine HCl (Clonidine Hcl 0.1 Mg Tab) 0.2 mg PO Q12H [facility] Stop: 03/02/22 17:14 Last Admin: 01/31/22 18:45 Dose: 0.2 mg Documented by: Diltiazem HCl (Diltiazem Hcl 240 Mg Capcr) 240 mg PO Q12H [facility] Stop: 03/02/22 17:14 Last Admin: 01/31/22 18:45 Dose: 240 mg Documented by: Diphenhydramine HCl (Diphenhydramine Capsule 25 Mg Cap) 25 mg PO Q6H PRN PRN Reason: Allergic Rhinitis/Insomnia Stop: 03/01/22 13:12 Famotidine (Famotidine 20 Mg Tab) 20 mg PO Q12H PRN PRN Reason: Dyspepsia Stop: 03/01/22 13:12 Folic Acid (Folic Acid 1 Mg Tab) 1 mg PO QAM [facility] Stop: 03/02/22 08:59 Last Admin: 01/31/22 09:12 Dose: 1 mg Documented by: Gabapentin (Gabapentin 600 Mg Tab) 600 mg PO TID [facility] Stop: 03/01/22 13:59 Last Admin: 01/31/22 14:15 Dose: 600 mg Documented by: Hydromorphone HCl (Hydromorphone Inj 0.5 Mg/0.5 Ml Syr) 0.5 mg IV Q3H PRN PRN Reason: MODERATE Pain (Scale 4,5,6) & Pre PT Stop: 02/13/22 13:12 Hydromorphone HCl (Hydromorphone Inj 1 Mg/Ml Syringe) 1 mg IV Q3H PRN PRN Reason: SEVERE Pain (Scale 7,8,9,10) Stop: 02/13/22 13:12 Hydroxyzine HCl (Hydroxyzine Hcl 25 Mg Tab) 25 mg PO Q8H PRN PRN Reason: Anxiety Stop: 03/01/22 13:12 Promethazine HCl 12.5 mg/ (Sodium Chloride) 50.5 mls @ 202 mls/hr IV Q6H PRN PRN Reason: Nausea &/or Vomiting Stop: 03/01/22 13:12 Acetaminophen (Ofirmev) 1,000 mg in 100 mls @ 400 mls/hr IV Q8H PRN PRN Reason: Pain Rating 1-3 & Pre PT Stop: 02/02/22 13:12 Dexamethasone 6 mg/ Syringe 1.5 mls @ 1 mls/min IV DAILY [facility] Stop: 02/02/22 09:02 Last Admin: 01/31/22 09:20 Dose: 1 mls/min Documented by: Influenza Virus Vaccine Quadrival (Do Not Administer Flu Vaccine) 1 ea N/A PRN PRN PRN Reason: Notification Stop: 03/01/22 13:12 Lisinopril (Lisinopril 20 Mg Tab) 20 mg PO Q12H RUFUS Stop: 03/02/22 17:14 Last Admin: 01/31/22 18:46 Dose: 20 mg Documented by: Lorazepam (Lorazepam 0.5 Mg Tab) 0.5 mg PO Q8H PRN PRN Reason: Sedation/Anxiety Stop: 03/01/22 13:12 Lorazepam (Lorazepam 2 Mg/1 Ml Vial) 0.5 mg IV Q8H PRN PRN Reason: Sedation/Anxiety Stop: 03/01/22 13:12 Magnesium Hydroxide (Magnesium Hydroxide Susp 30 Ml Udc) 30 ml PO Q24H PRN PRN Reason: Constipation Stop: 03/01/22 13:12 Metoclopramide HCl (Metoclopramide Hcl Inj 5 Mg/Ml 2 Ml Vial) 10 mg IV Q6H PRN PRN Reason: Nausea &/or Vomiting Stop: 03/01/22 13:12 Miscellaneous (Remove Nicoderm Patch) 1 ea N/A DAILY@0809 [facility] Stop: 03/02/22 08:58 Last Admin: 01/31/22 09:21 Dose: 1 ea Documented by: Naloxone HCl (Naloxone Hcl 0.4 Mg/1 Ml Vial/Carp) 0.1 mg IV Q5M PRN PRN Reason: Oversedation/Resp depression Stop: 03/01/22 13:12 Nicotine (Nicotine 21 Mg/24 Hr Tdsy) 21 mg TD QAM [facility] Stop: 03/01/22 14:29 Last Admin: 01/31/22 09:13 Dose: 21 mg Documented by: Ondansetron HCl (Ondansetron Inj 2 Mg/Ml 2 Ml Vial) 4 mg IV Q6H PRN PRN Reason: Nausea &/or Vomiting Stop: 03/01/22 13:12 Ondansetron HCl (Ondansetron 4 Mg Od Tab) 4 mg PO Q6H PRN PRN Reason: Nausea Stop: 03/01/22 13:12 Oxycodone HCl (Oxycodone Hcl Ir 5 Mg Tab (Immediate Release)) 5 - 10 mg PO Q4H PRN PRN Reason: Pain & Pre PT Stop: 02/13/22 13:12 Last Admin: 01/31/22 18:46 Dose: 10 mg Documented by: Pantoprazole Sodium (Pantoprazole 40 Mg Tab) 40 mg PO BID [facility] Stop: 03/01/22 20:59 Last Admin: 01/31/22 09:13 Dose: 40 mg Documented by: Pneumococcal Polyvalent Vaccine (Do Not Administer Pneumococcal Vaccine) 1 ea N/A PRN PRN PRN Reason: Notification Stop: 03/01/22 13:12 Polyethylene Glycol (Polyethylene (Miralax) 17 Gm Pack) 17 gm PO Q6 [facility] Stop: 03/02/22 05:59 Last Admin: 01/31/22 18:47 Dose: 17 gm Documented by: Pramipexole Dihydrochloride (Pramipexole Dihydrochlo 0.5 Mg Tab) 0.5 mg PO [facility] Stop: 03/01/22 20:59 Last Admin: 01/30/22 20:08 Dose: 0.5 mg Documented by: Senna/Docusate Sodium (Docusate Sodium/Senna 50/8.6mg Tab) 2 tab PO [facility] Stop: 03/01/22 20:59 Last Admin: 01/30/22 20:06 Dose: 2 tab Documented by: Sodium Biphosphate/Sodium Phosphate (Sod Phosphate/Sod Biphosphate Enema 132 Ml Btl) 132 ml NC ONE PRN PRN Reason: Constipation Stop: 03/01/22 13:12 Tizanidine HCl (Tizanidine Hcl 4 Mg Tablet) 4 mg PO TID PRN PRN Reason: Muscle Spasm Stop: 03/01/22 13:12 Last Admin: 01/30/22 23:58 Dose: 4 mg Documented by: Tramadol HCl (Tramadol Hcl 50 Mg Tablet) 50 - 100 mg PO Q4H PRN PRN Reason: Moderate-Severe pain & Pre PT Stop: 03/01/22 13:12 Trazodone HCl (Trazodone Hcl 100 Mg Tab) 100 mg PO [facility] Stop: 03/01/22 20:59 Last Admin: 01/30/22 20:08 Dose: 100 mg Documented by: Umeclidinium/Vilanterol (Umeclidinium/Vilanterol 62.5/25mcg 7 Puffs/Inhaler) 1 puffs INH DAILY RUFUS Stop: 03/02/22 08:59 Last Admin: 01/31/22 09:17 Dose: Not Given Documented by: Venlafaxine HCl (Venlafaxine Hcl Xr 150 Mg Capxr) 150 mg PO PM RUFUS Stop: 03/01/22 20:59 Last Admin: 01/30/22 20:08 Dose: 150 mg Documented by: Vitamin D (Cholecalciferol 1,000 Units 25 Mcg Tab) 1,000 units PO BID RUFUS Stop: 03/01/22 20:59 Last Admin: 01/31/22 09:14 Dose: 1,000 units Documented by:
[2022-01-31] MEDS: VENLAFAXINE HCL XR 150 MG CAPXR PO SCH (20:49)
[2022-01-31] MEDS: tiZANidine HCL 4 MG TABLET PO PRN (20:49)
[2022-01-31] MEDS: ANASTROZOLE 1 MG TAB PO SCH (20:50)
[2022-01-31] MEDS: DOCUSATE SODIUM/SENNA 50/8.6MG TAB PO SCH (20:50)
[2022-01-31] MEDS: ATORVASTATIN 40 MG TAB PO SCH (20:50)
[2022-01-31] MEDS: traZODone HCL 100 MG TAB PO SCH (20:50)
[2022-01-31] MEDS: PRAMIPEXOLE DIHYDROCHLO 0.5 MG TAB PO SCH (22:29)
[2022-02-01] MEDS: lisinopril 20 MG TAB PO SCH (04:41)
[2022-02-01] MEDS: cloNIDine HCL 0.1 MG TAB PO SCH (04:41)
[2022-02-01] MEDS: dilTIAZem HCL 240 MG CAPCR PO SCH (04:41)
[2022-02-01] MEDS: POLYETHYLENE (MIRALAX) 17 GM PACK PO SCH ×2 (04:42→12:10)
[2022-02-01] MEDS: oxyCODONE HCL IR 5 MG TAB (IMMEDIATE RELEASE) PO PRN ×3 (06:10→14:43)
[2022-02-01] MEDS: NICOTINE 21 MG/24 HR TDSY TD SCH (07:27)
[2022-02-01] MEDS: CHOLECALCIFEROL 1,000 UNITS 25 MCG TAB PO SCH (07:28)
[2022-02-01] MEDS: PANTOprazole 40 MG TAB PO SCH (07:29)
[2022-02-01] MEDS: GABAPENTIN 600 MG TAB PO SCH ×2 (07:29→13:10)
[2022-02-01] MEDS: FOLIC ACID 1 MG TAB PO SCH (07:29)
[2022-02-01] MEDS: dexAMETHasone 6 MG in SYRINGE 0 ML IV SCH (07:30)
[2022-02-01] MEDS: UMECLIDINIUM/VILANTEROL 62.5/25MCG 7 PUFFS/INHALER INH SCH (07:31)
--- NOTE | 2022-02-01 10:26 | Discharge Summary ---
Date of Service February 01, 2022 Admission HPI Per Admitting Provider This is a 51-year-old female presents with chronic persistent back and leg pain after failing course of nonoperative care she is here for surgical invention. Admission Exam (Per Admitting) Constitutional WD/WN, vitals as above Eyes PERRL, conjunctivae normal, anicteric sclerae Neck normal visual inspection Respiratory normal respiratory effort Cardiovascular Extremities: normal capillary refill Gastrointestinal (Abdomen) Inspection/Auscultation: abdomen normal to inspection Musculoskeletal Extremities: extremities normal to inspection Skin no rashes, warm and dry Neurologic normal touch/pain/proprioception and moves all extremities Psychiatric A+Ox3, euthymic affect Discharge Data Consultations 01/30/22 13:13 Consult Hospitalist Routine Procedures Performed Operation Date: 01/30/22 10:05 Actual Procedures p L5-S1 Decompression and Fusion, Interbody cage, Application of I-Factor, Spinal Cord Monitoring(Not Applicable) - Geovanny Culp DO Hospital Course (1) Lumbar radiculopathy: Patient had an uncomplicated postoperative hospital course. She is being discharged to rehab if bed is available on postoperative day 2. She is making progress in physical therapy. Pain is controlled. EVANGELINA output is diminishing each shift. Lab values have been stable.
== END 2022-02-01 15:44 | DRG 455 ==
LOC: ASU 08:03 → 3E 11:21

== ENCOUNTER 2022-12-08 10:41 | Inpatient (IN) ==
--- NOTE | 2022-11-08 11:36 | PAT Medication Instructions ---
Medication Instructions Date of Service November 08, 2022 Home Medications anastrozole 1 mg tablet (Arimidex) 1 mg PO QPM atorvastatin 40 mg tablet (Lipitor) 40 mg PO PM cholecalciferol (vitamin D3) 25 mcg (1,000 unit) tablet (Vitamin D3) 25 mcg PO BID cyanocobalamin (vitamin B-12) 1,000 mcg/mL injection solution 1,000 mcg IM MONTHLY folic acid 1 mg tablet 1 mg PO QAM gabapentin 600 mg tablet 600 mg PO TID omeprazole 20 mg delayed release,disintegrating tablet 20 mg PO BID oxycodone-acetaminophen 7.5 mg-325 mg tablet (Percocet) 1 tab PO QID PRN Pain tizanidine 4 mg tablet (Zanaflex) 4 mg PO TID PRN Muscle Spasm trazodone 100 mg tablet 100 mg PO HS venlafaxine 150 mg capsule,extended release 24 hr (Effexor XR) 150 mg PO PM albuterol sulfate 90 mcg/actuation aerosol inhaler 1 inh inhalation QID PRN SHORT OF BREATH denosumab 60 mg/mL subcutaneous syringe (Prolia) 60 mg subcut UD furosemide 20 mg tablet 20 mg PO DAILY PRN LEG SWELLING lisinopril 20 mg tablet 20 mg PO QAM metformin 500 mg tablet 500 mg PO QPM oxycodone 7.5 mg tablet,oral ONLY (not for feeding tubes) 7.5 mg PO UD pramipexole 0.125 mg tablet (Mirapex) 0.125 mg PO UD 0 tiotropium 2.5 mcg-olodaterol 2.5 mcg/actuation mist for inhalation (Stiolto Respimat) 2 puff inhalation DAILY PRN SHORT OF BREATH ASK your prescriber and surgeon anastrozole 1 mg tablet (Arimidex) 1 mg PO QPM denosumab 60 mg/mL subcutaneous syringe (Prolia) 60 mg subcut UD DO NOT take the morning of surgery cholecalciferol (vitamin D3) 25 mcg (1,000 unit) tablet (Vitamin D3) 25 mcg PO BID cyanocobalamin (vitamin B-12) 1,000 mcg/mL injection solution 1,000 mcg IM MONTHLY folic acid 1 mg tablet 1 mg PO QAM tizanidine 4 mg tablet (Zanaflex) 4 mg PO TID PRN Muscle Spasm furosemide 20 mg tablet 20 mg PO DAILY PRN LEG SWELLING lisinopril 20 mg tablet 20 mg PO QAM Take morning of surgery With a small sip of water, OTHERWISE NOTHING TO EAT OR DRINK AFTER MIDNIGHT: gabapentin 600 mg tablet 600 mg PO TID omeprazole 20 mg delayed release,disintegrating tablet 20 mg PO BID oxycodone-acetaminophen 7.5 mg-325 mg tablet (Percocet) 1 tab PO QID PRN Pain (if needed) albuterol sulfate 90 mcg/actuation aerosol inhaler 1 inh inhalation QID PRN SHORT OF BREATH (use if needed; please bring rescue inhaler with you to hospital day of surgery if possible) oxycodone 7.5 mg tablet,oral ONLY (not for feeding tubes) 7.5 mg PO UD tiotropium 2.5 mcg-olodaterol 2.5 mcg/actuation mist for inhalation (Stiolto Respimat) 2 puff inhalation DAILY PRN SHORT OF BREATH (if needed) Take evening before surgery atorvastatin 40 mg tablet (Lipitor) 40 mg PO PM cholecalciferol (vitamin D3) 25 mcg (1,000 unit) tablet (Vitamin D3) 25 mcg PO BID gabapentin 600 mg tablet 600 mg PO TID omeprazole 20 mg delayed release,disintegrating tablet 20 mg PO BID oxycodone-acetaminophen 7.5 mg-325 mg tablet (Percocet) 1 tab PO QID PRN Pain (if needed) tizanidine 4 mg tablet (Zanaflex) 4 mg PO TID PRN Muscle Spasm (if needed) trazodone 100 mg tablet 100 mg PO HS venlafaxine 150 mg capsule,extended release 24 hr (Effexor XR) 150 mg PO PM albuterol sulfate 90 mcg/actuation aerosol inhaler 1 inh inhalation QID PRN SHORT OF BREATH (if needed) furosemide 20 mg tablet 20 mg PO DAILY PRN LEG SWELLING (if needed) metformin 500 mg tablet 500 mg PO QPM oxycodone 7.5 mg tablet,oral ONLY (not for feeding tubes) 7.5 mg PO UD pramipexole 0.125 mg tablet (Mirapex) 0.125 mg PO UD tiotropium 2.5 mcg-olodaterol 2.5 mcg/actuation mist for inhalation (Stiolto Respimat) 2 puff inhalation DAILY PRN SHORT OF BREATH (if needed) Other Notes If you have any questions please call us at [phone] or [phone] or [phone] or [phone]
--- NOTE | 2022-11-13 13:01 | Anesthesiology Consultation ---
Date of Service November 13, 2022 Assessment & Plan (1) Encounter for pre-operative examination: Plan - awaiting cardiology clearance. - pt overdue to see cardiology, was to return 6 months after 08/17/21 visit. Pt and surgeon's office made aware cardio clearance will be needed. - anesthesia reaction: pt reports post-op bradycardia and hypotension with multiple previous surgeries, unable to provide additional details/no available records. - right arm restriction. Chart Review Chart Review: Pending: Refer to Additional Notes / Consult section and Patient seen in Pre Admission Testing Teaching & Discussion Pre-Anesthesia Teaching/Discussion Notes: Instructed NPO after midnight before surgery, except medications with 15 cc of water. Medication instructions provided according to the PAT guidelines. History Surgery Operation Date: 12/08/22 12:55 Proposed Procedures p L3-L4 Decompression, L3-S1 Fusion - Geovanny Culp DO Height/Weight Height: 5 ft 6 in Weight: 86.1 kg Allergies Allergy/AdvReac Type Severity Reaction Status Date / Time amlodipine [From Norvasc] AdvReac Intermediate Elevated BP Verified 11/07/22 15:08 hydralazine AdvReac Intermediate Elevated BP Verified 11/07/22 15:08 prednisone AdvReac Intermediate Increased Verified 11/07/22 15:08 pain (with oral prednisone) mirtazapine [From Remeron] AdvReac Mild Vomiting Verified 11/07/22 15:08 ropinirole [From Requip] AdvReac Mild Vomiting Verified 11/07/22 15:08 Medications Home Medications Medication Instructions Recorded Confirmed Last Taken anastrozole 1 mg tablet (Arimidex) 1 mg PO QPM 01/12/22 11/07/22 01/29/22 19:00 atorvastatin 40 mg tablet (Lipitor) 40 mg PO PM 01/12/22 11/07/22 01/29/22 16:30 cholecalciferol (vitamin D3) 25 25 mcg PO BID 01/12/22 11/07/22 01/29/22 16:30 mcg (1,000 unit) tablet (Vitamin D3) cyanocobalamin (vitamin B-12) 1,000 mcg IM MONTHLY 01/12/22 11/07/22 01/27/22 1,000 mcg/mL injection solution folic acid 1 mg tablet 1 mg PO QAM 01/12/22 11/07/22 01/29/22 04:30 gabapentin 600 mg tablet 600 mg PO TID 01/12/22 11/07/22 01/30/22 05:00 omeprazole 20 mg delayed 20 mg PO BID 01/12/22 11/07/22 01/30/22 05:00 release,disintegrating tablet oxycodone-acetaminophen 7.5 mg-325 1 tab PO QID PRN Pain 01/12/22 11/07/22 01/30/22 05:00 mg tablet (Percocet) tizanidine 4 mg tablet (Zanaflex) 4 mg PO TID PRN Muscle Spasm 01/12/22 11/07/22 01/29/22 21:00 trazodone 100 mg tablet 100 mg PO HS 01/12/22 11/07/22 01/29/22 21:00 venlafaxine 150 mg 150 mg PO PM 01/12/22 11/07/22 01/29/22 19:00 capsule,extended release 24 hr (Effexor XR) albuterol sulfate 90 mcg/actuation 1 inh inhalation QID PRN SHORT OF 11/07/22 11/07/22 Unknown aerosol inhaler BREATH denosumab 60 mg/mL subcutaneous 60 mg subcut UD 11/07/22 11/07/22 Unknown syringe (Prolia) furosemide 20 mg tablet 20 mg PO DAILY PRN LEG SWELLING 11/07/22 11/07/22 Unknown lisinopril 20 mg tablet 20 mg PO QAM 11/07/22 11/07/22 Unknown metformin 500 mg tablet 500 mg PO QPM 11/07/22 11/07/22 Unknown oxycodone 7.5 mg tablet,oral ONLY 7.5 mg PO UD 11/07/22 11/07/22 Unknown (not for feeding tubes) pramipexole 0.125 mg tablet 0.125 mg PO UD 11/07/22 11/07/22 Unknown (Mirapex) tiotropium 2.5 mcg-olodaterol 2.5 2 puff inhalation DAILY PRN SHORT 11/07/22 11/07/22 Unknown mcg/actuation mist for inhalation OF BREATH (Stiolto Respimat) Past Medical History Medical History (Updated 11/13/22 @ 13:17 by Tess Gonzalez PA-C) ADHD no meds Anxiety COPD (chronic obstructive pulmonary disease) stable per pt; last rescue inhaler use last week Coronary artery calcification Followed with Dr. Piña in past/cardiology Depression DJD (degenerative joint disease) Fibromyalgia Foot fracture, left CURRENTLY IN BOOT GERD (gastroesophageal reflux disease) controlled, stable per pt History of anesthesia reaction pt states that has been told of "HR and BP dropping" post-op History of breast cancer Rt breast Dx 2019 - s/p right mastectomy, on Arimidex History of GI bleed 05/2021 (hospitalized with GIB; [facility]) > no blood transfusion required HLD (hyperlipidemia) HTN (hypertension) stable, per pt IBS (irritable bowel syndrome) Limb alert care status RUE Neuropathy legs bilat Osteoporosis RLS (restless legs syndrome) Shoulder injury LEFT>SUPPOSED TO BE IN A SLING Spinal stenosis TMJ (temporomandibular joint disorder) denies any history of locking Patient denies h/o stroke, seizures, heart attack, heart failure, blood clots or blood transfusions. Exercise / Class Metabolic Activity III < 4 Walking/Shop/Light housework (denies chest discomfort or shortness of breath with usual activities) Past Surgical History Surgical History Family history of reaction to anesthesia SISTER>PASSES OUT Fusion of spine LUMBAR History of arthroscopy ankle x 2 History of breast biopsy History of colonoscopy History of esophagogastroduodenoscopy (EGD) History of foot surgery Rt History of reconstruction of right breast multiple surgery - unsuccessful History of reduction surgery of left breast History of repair of left rotator cuff History of right knee joint replacement partial History of right mastectomy History of tonsillectomy and adenoidectomy History of total abdominal hysterectomy and bilateral salpingo-oophorectomy Past Anesthesia History Other (history of bradycardia and hypotension; sister with syncope) History of PONV No Hx of PONV and No Hx of Motion Sickness Social History Smoking Status: Current every day smoker tobacco type: cigarettes Smoking cigarettes per day: 20-30 CIG PER DAY>ADVISED Do You Dip or Chew Tobacco: No Hx Alcohol Use: No substance use type: does not use Review of Systems Patient denies chest pain, shortness of breath, dyspnea on exertion, snoring, witnessed apneas, fever, chills, cough, wheezing, or palpitations. Physical Exam Vital Signs Vitals BP 105/73 P 80 TEMP 98.1 SP02 97% on RA RESP 18 Physical Full cervical extension range of motion without pain TMD 3.5 finger breadths Mallampati Score 2 Dentition: intact, denies chipped or loose teeth, caps/crowns, implants or bridges Lungs: normal respiratory effort. Clear throughout to auscultation, no adventitious breath sounds Cardiac: regular rate and rhythm, no murmurs noted Carotid arteries: negative bruit bilat Lab Results Anesthesia Preop Results Results Anesthesia Widget: PT 10.2 Seconds (9.0-12.0) 11/13/22 PTT 26.1 Seconds (21.0-31.0) 11/13/22 INR 1.0 (0.9-1.1) 11/13/22 Urine Color Yellow 11/13/22 Urine Appearance Clear (Clear) 11/13/22 Urine pH 5.5 (4.5-7.5) 11/13/22 Urine Specific [place] 1.019 (1.000-1.030) 11/13/22 Urine Protein Negative (Negative) 11/13/22 Urine Glucose (UA) Negative (Negative) 11/13/22 Urine Ketones Negative (Negative) 11/13/22 Urine Blood Negative (Negative) 11/13/22 Urine Nitrite Negative (Negative) 11/13/22 Urine Bilirubin Negative (Negative) 11/13/22 Urine Urobilinogen Negative (Negative) 11/13/22 Urine Leukocyte Esterase Negative (Negative) 11/13/22 Blood Type O Negative 11/13/22 Antibody Screen NEGATIVE 11/13/22 Testing Laboratory Results 11/06/2022 WBC: 10.5 H/H: 12/38 PLATELETS: 448 SODIUM: 136 POTASSIUM: 4.5 CHLORIDE: 105 CO2: 24 BUN: 10 CREATININE: 0.7 GLUCOSE: 69 Electrocardiogram Date: 11/13/22 NSR, rate 78 bpm Rightward axis Chest X-Ray Date: 11/13/22 Surgical clips project over the right chest. Suspected right mastectomy. Lung volumes are normal. Lungs are clear. There is no pneumothorax or pleural effusion. Cardiac size is normal. Mediastinal contours are normal. There is no evidence for pulmonary edema. IMPRESSION: No acute cardiopulmonary findings. Echocardiogram Date: 03/07/21 EF 60-65% Mild tricuspid regurgitation Normal diastolic function Thickened mitral valve Stress Test Date: 08/29/21 Pharmacologic MPHR 60% No significant ischemia Low probability of CAD EF 76% COVID-19 Risk Screen Screening Information COVID-19 Screen Date: 11/13/22 Exposure 21 Days Family/Household +COVID Last 21 Days: No Exposure 10 Days Any COVID Exposure Last 10 Days: No Symptoms Last 10 Days Experienced COVID Sx Last 10 Days: No + COVID 0-90 Days COVID + in Last 0-90 Days: No
[~2022-12-08 10:41] MED LIST changes: -SUGAMMADEX SODIUM 200 MG/2 ML VIAL IV ONE
[2022-12-08] MEDS ORDERED: LIDOCAINE 2% MPF LOCAL 5 ML VIAL ONE (11:40)
[2022-12-08] MEDS ORDERED: ROCURONIUM BROMIDE 10 MG/ML 5 ML VIAL IV ONE ×3 (11:40→13:29)
[2022-12-08] MEDS ORDERED: PROPOFOL IV EMULSION 10 MG/ML 20 ML VIAL IV ONE (11:40)
[2022-12-08] MEDS ORDERED: MIDAZOLAM HCL 1 MG/ML 2ML VIAL ONE (11:40)
[2022-12-08] MEDS ORDERED: fentaNYL citrate PF 100 MCG/2 ML VIAL ONE (11:40)
[2022-12-08] MEDS ORDERED: ATROPINE SULFATE 0.1 MG/ML 10ML SYR IV PRN (11:49)
[2022-12-08] MEDS ORDERED: ONDANSETRON INJ 2 MG/ML 2 ML VIAL IV PRN ×2 (11:49→16:51)
[2022-12-08] MEDS ORDERED: ePHEDrine sulfate 50 MG/ML AMP IV PRN (11:49)
[2022-12-08] MEDS ORDERED: BUPIVACAINE/EPINEPHRINE 0.25% 1:200,000 30 ML VIAL ONE (12:24)
[2022-12-08] MEDS ORDERED: ceFAZolin 330 MG/ML 1 GM VIAL ONE (12:24)
--- NOTE | 2022-12-08 12:39 | History & Physical Bridge Note ---
Date of Service December 08, 2022 History & Physical Bridge Note I have examined the patient, reviewed the History & Physical and in the interval since the performance of the History & Physical I have noted the following changes of clinical significance: no changes noted
--- NOTE | 2022-12-08 12:40 | History & Physical Report ---
Date of Service December 08, 2022 Assessment & Plan (1) Neurogenic claudication due to lumbar spinal stenosis: Plan: L3-L4 decompression L3-S1 fusion History of Present Illness Chief Complaint: Back and leg pain Primary Care Provider: Cordelia Mcmillan MD This is a 52-year-old female that has marked clinical status with considerable worsening back and leg pain and failing course of nonoperative care she is here for surgical intervention. Allergies Allergy/AdvReac Type Severity Reaction Status Date / Time amlodipine [From Norvasc] AdvReac Intermediate Elevated BP Verified 12/08/22 11:20 hydralazine AdvReac Intermediate Elevated BP Verified 12/08/22 11:20 mirtazapine [From Remeron] AdvReac Mild Vomiting Verified 12/08/22 11:20 ropinirole [From Requip] AdvReac Mild Vomiting Verified 12/08/22 11:20 Home Medications Medication Instructions Recorded Confirmed Type anastrozole 1 mg tablet (Arimidex) 1 mg PO QPM 01/12/22 12/08/22 History atorvastatin 40 mg tablet (Lipitor) 40 mg PO PM 01/12/22 12/08/22 History cholecalciferol (vitamin D3) 25 25 mcg PO BID 01/12/22 12/08/22 History mcg (1,000 unit) tablet (Vitamin D3) cyanocobalamin (vitamin B-12) 1,000 mcg IM MONTHLY 01/12/22 12/08/22 History 1,000 mcg/mL injection solution folic acid 1 mg tablet 1 mg PO QAM 01/12/22 12/08/22 History gabapentin 600 mg tablet 600 mg PO TID 01/12/22 12/08/22 History omeprazole 20 mg delayed 20 mg PO BID 01/12/22 12/08/22 History release,disintegrating tablet oxycodone-acetaminophen 7.5 mg-325 1 tab PO QID PRN Pain 01/12/22 12/08/22 History mg tablet (Percocet) tizanidine 4 mg tablet (Zanaflex) 4 mg PO TID PRN Muscle Spasm 01/12/22 12/08/22 History trazodone 100 mg tablet 100 mg PO HS 01/12/22 12/08/22 History venlafaxine 150 mg 150 mg PO PM 01/12/22 12/08/22 History capsule,extended release 24 hr (Effexor XR) albuterol sulfate 90 mcg/actuation 1 inh inhalation QID PRN SHORT OF 11/07/22 12/08/22 History aerosol inhaler BREATH denosumab 60 mg/mL subcutaneous 60 mg subcut UD 11/07/22 12/08/22 History syringe (Prolia) furosemide 20 mg tablet (Lasix) 20 mg PO DAILY PRN LEG SWELLING 11/07/2212/08 History lisinopril 20 mg tablet 20 mg PO QAM 11/07/22 12/08/22 History metformin 500 mg tablet 1,000 mg PO QPM 11/07/22 12/08/22 History pramipexole 0.125 mg tablet 0.125 mg PO UD 11/07/22 12/08/22 History (Mirapex) tiotropium 2.5 mcg-olodaterol 2.5 2 puff inhalation DAILY PRN SHORT 11/07/22 12/08/22 History mcg/actuation mist for inhalation OF BREATH (Stiolto Respimat) Past Med/Surg History Medical History (Updated 12/08/22 @ 12:40 by Geovanny Culp DO) ADHD no meds Anxiety COPD (chronic obstructive pulmonary disease) stable per pt; last rescue inhaler use last week Coronary artery calcification Followed with Dr. Piña in past/cardiology Depression DJD (degenerative joint disease) Fibromyalgia Foot fracture, left CURRENTLY IN BOOT GERD (gastroesophageal reflux disease) controlled, stable per pt History of anesthesia reaction pt states that has been told of "HR and BP dropping" post-op History of breast cancer Rt breast Dx 2019 - s/p right mastectomy, on Arimidex History of GI bleed 05/2021 (hospitalized with GIB; [facility]) > no blood transfusion required HLD (hyperlipidemia) HTN (hypertension) stable, per pt IBS (irritable bowel syndrome) Limb alert care status RUE Neuropathy legs bilat Osteoporosis RLS (restless legs syndrome) Shoulder injury LEFT>SUPPOSED TO BE IN A SLING Spinal stenosis TMJ (temporomandibular joint disorder) denies any history of locking Surgical History Family history of reaction to anesthesia SISTER>PASSES OUT Fusion of spine LUMBAR History of arthroscopy ankle x 2 History of breast biopsy History of colonoscopy History of esophagogastroduodenoscopy (EGD) History of foot surgery Rt History of reconstruction of right breast multiple surgery - unsuccessful History of reduction surgery of left breast History of repair of left rotator cuff History of right knee joint replacement partial History of right mastectomy History of tonsillectomy and adenoidectomy History of total abdominal hysterectomy and bilateral salpingo-oophorectomy Social History Smoking Status: Current every day smoker Cigarettes Per Day: 20-30 CIG PER DAY>ADVISED; Second Hand Exposure: No; Do You Dip or Chew Tobacco: No; Hx Alcohol Use: No Preferred Language: Kazakh Communication Ability: Effective Speaker Mounter Required: No Beliefs That Will Affect Care: None Current Living Situation: Spouse Feels Safe at Home: Yes Safety Concerns: Feels Safe At This Time Assistive Devices: Glasses Assistive Devices Comment: READING GLASSES Physical Exam Physical Exam: Patient alert and oriented heart regular rhythm Lungs clear Results & Data Results & Data Vital Signs (Past 12 Hours) Vital Signs Temp Pulse Resp BP Pulse Ox O2 Del Method 12/08/22 11:27 Room Air 12/08/22 11:27 36.9 C 80 18 128/86 95 Room Air
[2022-12-08] MEDS ORDERED: HYDROmorphone INJ 2 MG/ML SYR/VIAL ONE (13:42)
[2022-12-08] MEDS ORDERED: FLOSEAL HEMOSTATIC MATRIX 10ML TOP ONE (14:43)
[2022-12-08] MEDS ORDERED: SUGAMMADEX SODIUM 200 MG/2 ML VIAL IV ONE (14:54)
--- NOTE | 2022-12-08 15:02 | Operative Report ---
Post Operative Report Pre & Post Diagnosis Operation Date: 12/08/22 12:35 Pre-Op Diagnosis: Lumbar spinal stenosis with neurogenic claudication Spondylolisthesis L3-L4. Post-Op Diagnosis: Same I identified the patient and participated in the time-out.: Yes Procedure Operation Date: 12/08/22 12:35 Actual Procedures #1 removal of instrumentation L5-S1. #2 exploration of fusion L5-S1. #3 lumbar decompression bilateral medial facetectomies L2-L3, L3-L4, and L4-L5. #4 posterior spinal fusion L3-S1. #5 placement posterior instrumentation L3-S1. #6 interbody fusion L3-L4 L4-5. #7 placement of Spira 12 x 26 mm cage at L3-L4 and 13 x 26 mm cage at L4-L5. #8 placement locally harvested morselized autograft in the posterior gutters. #9 placement I factor combined with V toss in the interbody space and posterior lateral gutters. Surgeon Geovanny Culp, Mathematical Physicist Vladimir Villalpando Estimated Blood Loss 200 Findings Consistent with Post-Op Diagnosis Specimens None Indications This is a 52-year-old female who presents above-mentioned diagnosis after failing course of nonoperative care she is here for surgical invention. Description of Procedure Patient was met with identified informed consent obtained. Patient was then taken to the operative suite underwent ablation placed in a prone position the Jex table top Vincent frame. All bony prominences well-padded eyes inspected to ensure no external pressure placed upon the. This point the lumbar spine was prepped and draped in normal sterile fashion. Sharp dissection with the assistance of Bovie cautery to form down to and exposing the lamina and transverse processes of L3-L4 and instrumentation at L5-S1 bilaterally. Then proceeded move the end caps and rods at L5-S1 explore the fusion mass noting it to be maturing. Then performed a complete laminectomy of L4 L3 impression laminectomy of L2 including bilateral medial facetectomies and foraminotomies addressing severe spinal stenosis. Pedicle screws then placed in L3-L4 bilaterally and appropriate sized amanda placed from L3-S1. By way of transforamin al approach and right complete discectomy of L4-5 was performed endplates curetted to subcortical bleeding bone and a 13 x 26 mm Spira cage with I factor tapped the position. Then proceeded to L3-L4 and again bilateral transforaminal approach and right complete discectomy performed endplates curetted to subcortical bleeding bone and a 12 x 26 mm Spira cage with I factor tapped in position. The rods were then locked in final position bilaterally. The transverse processes of L3-L4-L5 burred to subcortical bleeding bone. I factor combined with the test and locally harvested morselized autograft was placed in the posterior gutters. 15 round EVANGELINA drain inserted. The incision was then closed with 1 Vicryl in the fascia 2-0 Vicryl subcutaneously and 4 Monocryl for final skin closure. Steri-Strip sterile dressing placed. Patient waken taken to PACU stable condition. Please note spinal cord monitoring was utilized at the procedure no changes noted. Lastly Vladimir Villalpando was present at the entire surgeon while the patient positioning complex portions of the surgery and final skin closure. I attest to the content of the Intraoperative Record and any orders documented therein. Any exceptions are noted below.
--- NOTE | 2022-12-08 15:21 | Fluoroscopy Report ---
FL lumbar spine 2-3V CLINICAL HISTORY: L3-L4 DECOMPRESSION, L3-S1 FUSION COMPARISON STUDY: None. FLUOROSCOPY TIME: 20 seconds FLUOROSCOPY IMAGES: 2 Ka,r: 18.6 mGy FINDINGS: Posterior decompression and fusion from L3 through S1 with pedicle screws and rods. The vu dware appears intact. Disc spacers are placed. IMPRESSION: Fluoroscopic assistance as above. ACT 112: Negative or not required by law. Electronically signed by: Pj Mehta M.D. 12/08/2022 3:20 PM
[2022-12-08] MEDS: fentaNYL citrate PF 100 MCG/2 ML VIAL IV PRN ×4 (15:42→15:57)
[2022-12-08] MEDS: HYDROmorphone INJ 1 MG/ML SYRINGE IV PRN ×4 (16:02→16:17)
[2022-12-08] MEDS ORDERED: HYDROmorphone INJ 0.5 MG/0.5 ML SYR IV PRN (16:51)
[2022-12-08] MEDS ORDERED: FUROSEMIDE 20 MG TAB PO PRN (16:51)
[2022-12-08] MEDS ORDERED: SOD PHOSPHATE/SOD BIPHOSPHATE ENEMA 132 ML BTL PR PRN (16:51)
[2022-12-08] MEDS ORDERED: ALUMINUM/MAGNESIUM SUSP 30 ML UDC PO PRN (16:51)
[2022-12-08] MEDS ORDERED: DO NOT ADMINISTER PNEUMOCOCCAL VACCINE PRN (16:51)
[2022-12-08] MEDS ORDERED: hydrOXYzine HCl 25 MG TAB PO PRN (16:51)
[2022-12-08] MEDS ORDERED: ACETAMINOPHEN 1,000 MG/100 ML VIAL IV PRN (16:51)
[2022-12-08] MEDS ORDERED: bisacodyL 10 MG SUPP PR PRN (16:51)
[2022-12-08] MEDS ORDERED: SODIUM CHLORIDE 0.9% 1000ML 1,000 ML IV SCH (16:51)
[2022-12-08] MEDS ORDERED: ALBUTEROL HFA 8 GM INHALER INH PRN (16:51)
[2022-12-08] MEDS ORDERED: DO NOT ADMINISTER FLU VACCINE PRN (16:51)
[2022-12-08] MEDS ORDERED: ONDANSETRON 4 MG OD TAB PO PRN (16:51)
[2022-12-08] MEDS ORDERED: PHARMACY GLYCEMIC MGMT CONSULT PRN (16:51)
[2022-12-08] MEDS ORDERED: PROMETHAZINE HCL 12.5 MG in SODIUM CHLORIDE 0.9% 50 ML IV PRN (16:51)
[2022-12-08] MEDS ORDERED: diphenhydrAMINE Capsule 25 MG CAP PO PRN (16:51)
[2022-12-08] MEDS ORDERED: LORazepam 0.5 MG TAB PO PRN (16:51)
[2022-12-08] MEDS ORDERED: NALOXONE HCL 0.4 MG/1 ML VIAL/CARP IV PRN (16:51)
[2022-12-08] MEDS ORDERED: LORazepam 2 MG/1 ML VIAL IV PRN (16:51)
[2022-12-08] MEDS ORDERED: FAMOTIDINE 20 MG TAB PO PRN (16:51)
[2022-12-08] MEDS ORDERED: HYDROmorphone INJ 1 MG/ML SYRINGE IV PRN (16:51)
[2022-12-08] MEDS ORDERED: METOCLOPRAMIDE HCL INJ 5 MG/ML 2 ML VIAL IV PRN (16:51)
[2022-12-08] MEDS ORDERED: MAGNESIUM HYDROXIDE SUSP 30 ML UDC PO PRN (16:51)
[2022-12-08] MEDS: oxyCODONE HCL IR 5 MG TAB (IMMEDIATE RELEASE) PO PRN ×2 (17:08→21:13)
[2022-12-08] MEDS ORDERED: UMECLIDINIUM/VILANTEROL 62.5/25MCG 7 PUFFS/INHALER INH PRN (17:12)
--- NOTE | 2022-12-08 17:25 | Anesthesiology Progress Note ---
Date of Service December 08, 2022 Anesthesia Post Procedure Vital Signs Vital Signs: Temp Pulse Pulse Resp BP BP Pulse Ox 12/08/22 16:56 98.1 F 85 104/74 94 12/08/22 16:45 97.5 F L 89 20 117/81 95 12/08/22 16:25 89 21 103/73 90 12/08/22 16:15 87 15 97/80 L 88 L 12/08/22 16:35 83 15 114/78 89 L 12/08/22 16:05 94 H 13 109/79 87 L 12/08/22 15:55 98 H 14 112/89 96 12/08/22 15:45 98 H 19 93/79 L 97 12/08/22 15:36 97.0 F L 104 H 17 132/112 H 100 12/08/22 11:27 12/08/22 11:27 98.4 F 80 18 128/86 95 O2 Del Method O2 Flow Rate 12/08/22 16:56 Room Air 12/08/22 16:45 Nasal Cannula 2 12/08/22 16:25 Room Air 12/08/22 16:15 Room Air 12/08/22 16:35 Room Air 12/08/22 16:05 Room Air 12/08/22 15:55 Nasal Cannula 4 12/08/22 15:45 Nasal Cannula 4 12/08/22 15:36 Oxymask 10 12/08/22 11:27 Room Air 12/08/22 11:27 Room Air Pain Intensity Back: Pain Intensity: 10 Transfer of Care Handoff Completed per policy Notes Mental Status: alert / awake / arousable and participated in evaluation Patient Amnestic to Procedure: Yes Nausea / Vomiting: adequately controlled Pain: adequately controlled, improving with treatment and see Notes below Airway Patency, RR, SpO2: stable & adequate BP & HR: stable & adequate Hydration State: stable & adequate Anesthetic Complications: no major complications apparent and Pt Satisfied with anesthetic care Notes: patient reports back pain, slightly worse then previous surgery, IV pain medication with little help, BP borderline low with SBP 90s, educated patient on pain regimen and improved sustained pain control with oral meds, patient in agreement
--- NOTE | 2022-12-08 19:16 | Hospitalist Consultation ---
Date of Consultation December 08, 2022 Assessment & Plan (1) Neurogenic claudication due to lumbar spinal stenosis: POD #0 - L3-L4 decompression with L3-S1 fusion - Pain control, PT, DVT prophylaxis per primary service - Encourage OOB as tolerated, incentive spirometry - Ordered nicotine patch per pt request, encouraged smoking cessation but pt not ready - Noted to have Metformin on medication list now but no listed dx of diabetes - pt states that she is on it for pain but it's not helping, confirms no dx of DM. Will hold Metformin, check A1c in AM, monitor BSGs, and adjust plan from there if needed. Discussed with pharmacist who will hold off on glycemic management consult for now - Continue ice to right shoulder as needed since this has been helpful with pain as outpatient (2) COPD (chronic obstructive pulmonary disease): (3) HTN (hypertension): (4) HLD (hyperlipidemia): (5) Depression: (6) Anxiety: (7) RLS (restless legs syndrome): (8) Coronary artery calcification: (9) GERD (gastroesophageal reflux disease): (10) Tobacco abuse: Plan Continue other home medications as appropriate Pt seen and reviewed with collaborating physician, Dr. Brown. Plan of care discussed and as outlined above. Thank you for this consultation. We will continue to follow the patient with you. A member of the [facility] Hospitalist Team is available 09/04 via [employer]. Please don't hesitate to reach out with questions. Lorena Garrett PA-C Supervising Physician Co-Signing Physician Notes I have seen and examined the patient and have discussed the case with the provider above. I agree with the assessment and plan as stated. She is doing well post operatively although reporting pain that is uncontrolled. She has a history of chronic narcotic therapy, and has rj taking Percocet 7.5mg, recently increased to five times daily. It is therefore, very likely that she has some tolerance and may require slightly higher than normal doses of pain medication post-op. On physical exam she appears intoxicated. She uses profanity in frustration while being unable to operate her phone. Physical exam is otherwise unremarkable with clear lungs to auscultation, unremarkable cardiac exam and EVANGELINA drain in place. Cont plan as noted above. Agree wtih holding metformin and insulin coverage at this time given no clear understanding of her metformin use. She states she has been using it for pain, not DM or prediabetes. A1C pending and will monitor BSG frequently. Smoking cessation strongly recommended. Thank you for this consultation. DO Kevin History of Present Illness Reason for Consultation: Post-op Medical Management Requesting Physician: Dr. Geovanny Culp Attending Physician: Geovanny Culp DO History of Present Illness This is a 52 y/o female with a PMH of HTN, COPD, coronary calcifications on CT, tobacco abuse, anxiety, depression, prior GI bleed, OA, osteoporosis, spintal stenosis, fibromyalgia, and breast cancer s/p mastectomy and on Arimidex who underwent L3-L4 decompression with L3-S1 fusion today by Dr. Culp. We have been consulted to assist with post-operative medical management. Pt was seen by our service in January 2022 when she underwent L5-S1 decompression and fusion. She initially did well post-operatively but had a back injury earlier this year which lead to recurrent issues, pain again becoming severe. Pain was not controlled with conservative measures so she underwent surgical intervention again today. Currently she is having some burning pain related to the incision in her lower back. She denies chest pain, shortness of breath, dizziness, AVITIA, palpitations. She does not a recent left foot fracture after tripping on a door threshold, for which she was in a boot until yesterday when she was told that she could remove it. She notes some residual pain in the lateral left foot, has been favoring the area somewhat when she walks. She also notes a right shoulder injury which she has been managing with ice, intermittent sling use, and pain meds. She continues to smoke 1.5 PPD and is not interested in quitting at this time - would like a nicotine patch while inpatient. Allergies Allergy/AdvReac Type Severity Reaction Status Date / Time amlodipine [From Norvasc] AdvReac Intermediate Elevated BP Verified 12/08/22 11 :20 hydralazine AdvReac Intermediate Elevated BP Verified 12/08/22 11:20 mirtazapine [From Remeron] AdvReac Mild Vomiting Verified 12/08/22 11:20 ropinirole [From Requip] AdvReac Mild Vomiting Verified 12/08/22 11:20 Home Medications Medication Instructions Recorded Confirmed Type anastrozole 1 mg tablet (Arimidex) 1 mg PO QPM 01/12/22 12/08/22 History atorvastatin 40 mg tablet (Lipitor) 40 mg PO PM 01/12/22 12/08/22 History cholecalciferol (vitamin D3) 25 25 mcg PO BID 01/12/22 12/08/22 History mcg (1,000 unit) tablet (Vitamin D3) cyanocobalamin (vitamin B-12) 1,000 mcg IM MONTHLY 01/12/22 12/08/22 History 1,000 mcg/mL injection solution folic acid 1 mg tablet 1 mg PO QAM 01/12/22 12/08/22 History gabapentin 600 mg tablet 600 mg PO TID 01/12/22 12/08/22 History omeprazole 20 mg delayed 20 mg PO BID 01/12/22 12/08/22 History release,disintegrating tablet oxycodone-acetaminophen 7.5 mg-325 1 tab PO QID PRN Pain 01/12/22 12/08/22 History mg tablet (Percocet) tizanidine 4 mg tablet (Zanaflex) 4 mg PO TID PRN Muscle Spasm 01/12/22 12/08/22 History trazodone 100 mg tablet 100 mg PO HS 01/12/22 12/08/22 History venlafaxine 150 mg 150 mg PO PM 01/12/22 12/08/22 History capsule,extended release 24 hr (Effexor XR) albuterol sulfate 90 mcg/actuation 1 inh inhalation QID PRN SHORT OF 11/07/22 12/08/22 History aerosol inhaler BREATH denosumab 60 mg/mL subcutaneous 60 mg subcut UD 11/07/22 12/08/22 History syringe (Prolia) furosemide 20 mg tablet (Lasix) 20 mg PO DAILY PRN LEG SWELLING 11/07/22 12/08/22 History lisinopril 20 mg tablet 20 mg PO QAM 11/07/22 12/08/22 History metformin 500 mg tablet 1,000 mg PO QPM 11/07/22 12/08/22 History pramipexole 0.125 mg tablet 0.125 mg PO UD 11/07/22 12/08/22 History (Mirapex) tiotropium 2.5 mcg-olodaterol 2.5 2 puff inhalation DAILY PRN SHORT 11/07/22 12/08/22 History mcg/actuation mist for inhalation OF BREATH (Stiolto Respimat) Patient History Medical History ADHD no meds Anxiety COPD (chronic obstructive pulmonary disease) stable per pt; last rescue inhaler use last week Coronary artery calcification Followed with Dr. Piña in past/cardiology Depression DJD (degenerative joint disease) Fibromyalgia Foot fracture, left CURRENTLY IN BOOT GERD (gastroesophageal reflux disease) controlled, stable per pt History of anesthesia reaction pt states that has been told of "HR and BP dropping" post-op History of breast cancer Rt breast Dx 2019 - s/p right mastectomy, on Arimidex History of GI bleed 05/2021 (hospitalized with GIB; [facility]) > no blood transfusion required HLD (hyperlipidemia) HTN (hypertension) stable, per pt IBS (irritable bowel syndrome) Limb alert care status RUE Neuropathy legs bilat Osteoporosis RLS (restless legs syndrome) Shoulder injury LEFT>SUPPOSED TO BE IN A SLING Spinal stenosis TMJ (temporomandibular joint disorder) denies any history of locking Surgical History Family history of reaction to anesthesia SISTER>PASSES OUT Fusion of spine LUMBAR History of arthroscopy ankle x 2 History of breast biopsy History of colonoscopy History of esophagogastroduodenoscopy (EGD) History of foot surgery Rt History of reconstruction of right breast multiple surgery - unsuccessful History of reduction surgery of left breast History of repair of left rotator cuff History of right knee joint replacement partial History of right mastectomy History of tonsillectomy and adenoidectomy History of total abdominal hysterectomy and bilateral salpingo-oophorectomy Family History Other No history of adverse effect of anesthesia Social History Smoking Status: Current every day smoker Cigarettes Per Day: 20-30 CIG PER DAY>ADVISED; Second Hand Exposure: No; Do You Dip or Chew Tobacco: No; Hx Alcohol Use: No Preferred Language: Slovak Communication Ability: Effective [employer] Required: No Beliefs That Will Affect Care: None Current Living Situation: Spouse Feels Safe at Home: Yes Safety Concerns: Feels Safe At This Time Assistive Devices: Glasses Assistive Devices Comment: READING GLASSES Review of Systems Review of Systems: All systems reviewed & are unremarkable except as noted in HPI & below Constitutional: no fever and no chills Eyes: no diplopia and no worsening vision Ear, Nose, Mouth, Throat: + dry mouth Respiratory: no cough and no dyspnea Cardiovascular: no chest pain and no palpitations Gastrointestinal: no abdominal pain, no nausea and no vomiting Genitourinary: Claudio in place Musculoskeletal: + back pain right shoulder pain, left foot pain Integumentary: no rash and no yellowing of the skin Neurologic: no dizziness and no headache(s) Physical Exam Constitutional: well developed and well nourished; no acute distress Eyes: + anicteric sclerae ENMT: external ear and nose normal, oropharynx normal Neck: trachea midline Respiratory: no respiratory distress and no labored breathing Auscultation: lungs clear to auscultation bilaterally; no rales, no rhonchi and no wheezes Cardiovascular: Rate/Rhythm: regular rate and regular rhythm Vessels: dorsalis pedis pulses present and radial pulses present Extremities: no pedal edema Gastrointestinal (Abdomen): Inspection/Auscultation: normal bowel sounds; abdomen not distended Percussion/Palpation: abdomen soft; abdomen nontender Musculoskeletal: Head/Neck/Chest: normocephalic, head atraumatic and neck supple EVANGELINA drain in place with sanguinous drainage left lateral foot with tender area at base of fifth metatarsal Skin: no rashes and no jaundice Neurologic: moves all extremities; no focal motor deficits and not confused Psychiatric: A+Ox3, euthymic affect Genitourinary: Claudio in place with pale yellow urine Results & Data Results & Data Vital Signs (Past 12 Hours) Vital Signs Temp Pulse Pulse Resp BP BP Pulse Ox 12/08/22 17:55 36.9 C 78 16 109/71 93 12/08/22 17:30 36.8 C 89 16 107/75 94 12/08/22 16:56 36.7 C 85 104/74 94 12/08/22 16:45 36.4 C L 89 20 117/81 95 12/08/22 16:25 89 21 103/73 90 12/08/22 16:15 87 15 97/80 L 88 L 12/08/22 16:35 83 15 114/78 89 L 12/08/22 16:05 94 H 13 109/79 87 L 12/08/22 15:55 98 H 14 112/89 96 12/08/22 15:45 98 H 19 93/79 L 97 12/08/22 15:36 36.1 C L 104 H 17 132/112 H 100 12/08/22 11:27 12/08/22 11:27 36.9 C 80 18 128/86 95 O2 Del Method O2 Flow Rate 12/08/22 17:55 Room Air 12/08/22 17:30 Room Air 12/08/22 16:56 Room Air 12/08/22 16:45 Nasal Cannula 2 12/08/22 16:25 Room Air 12/08/22 16:15 Room Air 12/08/22 16:35 Room Air 12/08/22 16:05 Room Air 12/08/22 15:55 Nasal Cannula 4 12/08/22 15:45 Nasal Cannula 4 12/08/22 15:36 Oxymask 10 12/08/22 11:27 Room Air 12/08/22 11:27 Room Air Laboratory Results 12/08/22 12/08/22 12/08/22 11:08 17:14 Unknown POC Glucose 139 H SARS-CoV-2, RNA, NAAT NEGATIVE Blood Type O Negative Antibody Screen NEGATIVE Crossmatch See Detail Medications Administered Fentanyl Citrate (Fentanyl Citrate Pf 100 Mcg/2 Ml Vial) 25 mcg IV Q5M PRN PRN Reason: PACU Use Only-Pain Stop: 12/08/22 19:50 Last Admin: 12/08/22 15:57 Dose: 25 mcg Documented By: Admin: 12/08/22 15:52 Dose: 25 mcg Documented By: Admin: 12/08/22 15:47 Dose: 25 mcg Documented By: Admin: 12/08/22 15:42 Dose: 25 mcg Documented By: [facility] Hydromorphone HCl (Hydromorphone Inj 1 Mg/Ml Syringe) 0.25 mg IV Q5M PRN PRN Reason: PACU Use Only-Pain Stop: 12/08/22 19:50 Last Admin: 12/08/22 16:17 Dose: 0.25 mg Documented By: Admin: 12/08/22 16:12 Dose: 0.25 mg Documented By: Admin: 12/08/22 16:07 Dose: 0.25 mg Documented By: Admin: 12/08/22 16:02 Dose: 0.25 mg Documented By: REX Lactated Ringer's (Lr) 1,000 mls @ 15 mls/hr IV .Q24H RUFUS Stop: 12/09/22 05:59 Last Infusion: 12/08/22 12:54 Dose: 0 mls/hr Documented By: Admin: 12/08/22 11:19 Dose: 15 mls/hr Documented By: PAUL Sodium Chloride (Nss 1000ml) 1,000 mls @ 100 mls/hr IV .Q10H RUFUS Stop: 01/07/23 16:50 Last Admin: 12/08/22 17:04 Dose: 100 mls/hr Documented By: MANUELA Oxycodone HCl (Oxycodone Hcl Ir 5 Mg Tab (Immediate Release)) 5 - 10 mg PO Q4H PRN PRN Reason: Pain & Pre PT Stop: 12/22/22 16:50 Last Admin: 12/08/22 17:08 Dose: 10 mg Documented By: MANUELA Discontinued Medications Acetaminophen (Acetaminophen 500 Mg Tab) 1,000 mg PO PREOP RUFUS Stop: 12/08/22 18:00 Last Admin: 12/08/22 11:38 Dose: 1,000 mg Documented By: PAUL Bupivacaine HCl/Epinephrine Bitart (Bupivacaine/Epinephrine 0.25% 1:200,000 30 Ml Vial) Confirm Administered Dose 30 ml .ROUTE .STK-MED ONE Stop: 12/08/22 12:25 Last Admin: 12/08/22 14:42 Dose: 30 ml Documented By: GMEmerson Cefazolin Sodium (Cefazolin 330 Mg/Ml 1 Gm Vial) Confirm Administered Dose 990 mg .ROUTE .STK-MED ONE Stop: 12/08/22 12:25 Last Admin: 12/08/22 14:42 Dose: 990 mg Documented By: GMEmerson Celecoxib (Celebrex 200 Mg Cap) 200 mg PO PREOP RUFUS Stop: 12/08/22 18:00 Last Admin: 12/08/22 11:38 Dose: 200 mg Documented By: PAUL Gabapentin (Gabapentin 900 Mg Dose) 900 mg PO PREOP RUFUS Stop: 12/08/22 18:00 Last Admin: 12/08/22 11:38 Dose: Not Given Documented By: PAUL Cefazolin Sodium (Ancef 2000mg) 2,000 mg in 15 mls @ 3.75 mls/min IV PREOP RUFUS; Protocol Stop: 12/08/22 18:00 Last Admin: 12/08/22 12:54 Dose: 3.75 mls/min Documented By: REANNA Miscellaneous ( Floseal Hemostatic Matrix 10ml) 10 ml TOP ONCE ONE Stop: 12/08/22 14:44 Last Admin: 12/08/22 14:58 Dose: 16 ml Documented By: ALKA
[2022-12-08] MEDS: ACETAMINOPHEN 500 MG TAB PO PRN (19:31)
[2022-12-08] MEDS: CHOLECALCIFEROL 1,000 UNITS 25 MCG TAB PO SCH (21:13)
[2022-12-08] MEDS: ATORVASTATIN 40 MG TAB PO SCH (21:14)
[2022-12-08] MEDS: ceFAZolin 2000MG 2,000 MG/15 ML SYR IV SCH (21:14)
[2022-12-08] MEDS: PANTOprazole 40 MG TAB PO SCH (21:14)
[2022-12-08] MEDS: traZODone HCL 100 MG TAB PO SCH (21:15)
[2022-12-08] MEDS: DOCUSATE SODIUM/SENNA 50/8.6MG TAB PO SCH (21:15)
[2022-12-08] MEDS: ANASTROZOLE 1 MG TAB PO SCH (21:15)
[2022-12-08] MEDS: PRAMIPEXOLE DIHYDROCHLO 0.5 MG TAB PO SCH (21:15)
[2022-12-08] MEDS: GABAPENTIN 600 MG TAB PO SCH (21:15)
[2022-12-08] MEDS: VENLAFAXINE HCL XR 150 MG CAPXR PO SCH (21:15)
[2022-12-08] MEDS: NICOTINE 21 MG/24 HR TDSY TD SCH (21:28)
[2022-12-09] MEDS: oxyCODONE HCL IR 5 MG TAB (IMMEDIATE RELEASE) PO PRN ×4 (02:46→20:01)
[2022-12-09] MEDS: ACETAMINOPHEN 500 MG TAB PO PRN ×2 (04:37→13:16)
[2022-12-09] MEDS: ceFAZolin 2000MG 2,000 MG/15 ML SYR IV SCH (04:37)
[2022-12-09] MEDS: POLYETHYLENE (MIRALAX) 17 GM PACK PO SCH ×4 (05:08→21:15)
[2022-12-09 06:23] LABS: Basophils # (auto) 0.01 K/uL (0-0.2); Basophils % (auto) 0.1 %; Hematocrit (blood only) 30.2 % (37.0-47.0); Hemoglobin 9.9 g/dl (12.0-16.0); Immature Granulocytes # (auto) 0.04 K/uL (0.01-0.20); Immature Granulocytes % (auto) 0.4 %; Lymphocytes # (auto) 1.12 K/uL (1.2-3.4); Lymphocytes % (auto) 11.1 %; Mean Corpuscular Hemoglobin 29.1 pg (25.0-34.0); Mean Corpuscular Hgb Conc 32.8 g/dL (32.0-36.0); Mean Corpuscular Volume 88.8 fL (80.0-100.0); Mean Platelet Volume 9.3 fL (9.4-12.4); Monocytes # (auto) 0.58 K/uL (0.11-0.59); Monocytes % (auto) 5.8 %; Neutrophils # (auto) 8.33 K/uL (1.40-6.50); Neutrophils % (auto) 82.6 %; Platelet Count 356 K/uL (130-400); RDW Coefficient of Variation 13.8 % (11.5-14.5); RDW Standard Deviation 44.7 fL (36.4-46.3); White Blood Count 10.08 K/ul (4.8-10.8)
[2022-12-09 06:35] LABS: BUN Creatinine Ratio 14.1 (10-20); Creatinine Clr Calc Pharmacy 110.9 ml/min; Est GFR (African American) 117.3 ml/min; Est GFR (Non-African American) 101.2 ml/min; Potassium 4.2 mmol/L (3.5-5.1)
[2022-12-09] MEDS: CHOLECALCIFEROL 1,000 UNITS 25 MCG TAB PO SCH ×2 (08:07→19:54)
[2022-12-09] MEDS: GABAPENTIN 600 MG TAB PO SCH ×3 (08:07→19:55)
[2022-12-09] MEDS: PANTOprazole 40 MG TAB PO SCH ×2 (08:07→19:56)
[2022-12-09] MEDS: lisinopril 20 MG TAB PO SCH (08:07)
[2022-12-09] MEDS: FOLIC ACID 1 MG TAB PO SCH (08:07)
--- NOTE | 2022-12-09 08:18 | Orthopedic Progress Note ---
Date of Service December 09, 2022 Assessment & Plan (1) Neurogenic claudication due to lumbar spinal stenosis: Plan: This time initiate physical therapy monitor EVANGELINA operatively discharge home in the next few days. Admission and Anticipated Discharge Date Admission Date: December 08, 2022 Subjective Back pain controlled leg pain markedly improved Physical Exam Physical Exam: Patient is sitting in the chair at bedside. Appears comfortable. Is cons tricted testing. Results & Data Vital Signs (Past 12 Hours) Vital Signs Temp Pulse Resp BP Pulse Ox O2 Del Method 12/09/22 07:30 36.6 C 75 16 119/76 95 Room Air 12/09/22 02:43 36.7 C 86 16 121/83 97 Room Air 12/08/22 23:36 36.6 C 89 16 109/71 95 Room Air
[2022-12-09] MEDS: dexAMETHasone 8 MG in SYRINGE 0 ML IV SCH (09:11)
[2022-12-09 09:23] LABS: Estimated Average Glucose 134 mg/dl; Hemoglobin A1C 6.3 % (4.5-5.6)
[2022-12-09] MEDS: traMADol HCL 50 MG TABLET PO PRN (13:16)
--- NOTE | 2022-12-09 18:11 | Hospitalist Progress Note ---
Date of Service December 09, 2022 delayed entry date of service noted above Assessment & Plan (1) Neurogenic claudication due to lumbar spinal stenosis: Plan: per previous hospitalist note with addendum: POD #0 - L3-L4 decompression with L3-S1 fusion - Pain control, PT, DVT prophylaxis per primary service - Encourage OOB as tolerated, incentive spirometry - Ordered nicotine patch per pt request, encouraged smoking cessation but pt not ready - Noted to have Metformin on medication list now but no listed dx of diabetes - pt states that she is on it for pain but it's not helping, confirms no dx of DM. Will hold Metformin, check A1c in AM, monitor BSGs, and adjust plan from there if needed. Discussed with pharmacist who will hold off on glycemic management consult for now - Continue ice to right shoulder as needed since this has been helpful with pain as outpatient 12/09 stable overall monitor Hg pain management (2) COPD (chronic obstructive pulmonary disease): Plan: Not in exacerbation (3) HTN (hypertension): Plan: Stable Continue lisinopril (4) HLD (hyperlipidemia): (5) Depression: Plan: Continue Effexor (6) Anxiety: Plan: Continue Effexor As needed lorazepam (7) RLS (restless legs syndrome): Plan: Continue Mirapex (8) Coronary artery calcification: Plan: No cardiac symptoms Continue Lipitor (9) GERD (gastroesophageal reflux disease): Plan: No GI symptoms (10) Tobacco abuse: Plan plan of care discussed with patient in detail and at length all questions answered she is understanding, agreeable, comfortable with the plan of care Admission and Anticipated Discharge Date Admission Date: December 08, 2022 Subjective ff up for s/p back surgery, etc seen sitting up in bedside chair Not in distress, comfortable Patient tearful, states she is anxious Cannot specify exactly why Patient reassured Denies chest pain, shortness of breath, palpitations, dizziness Pain adequately controlled No other symptoms Review of Systems Review of Systems: all noted and negative except for above Physical Exam Physical Exam: General- oriented x 3, not in distress, speaks in sentences with no effort or accessory muscle use Eyes- anicteric Neck- no JVD Lungs- clear breath sounds bilaterally, no rales/wheezes Heart- normal rate, regular rhythm; no murmurs Abdomen- normal bowel sounds, nondistended, soft, nontender Extremities- no pretibial edema, no calf tenderness Neuro- alert, oriented x 3; no gross focal neurologic deficits Skin- warm & dry Results & Data Results & Data Vital Signs (Past 12 Hours) Vital Signs Temp Pulse Resp BP Pulse Ox O2 Del Method 12/09/22 14:20 36.6 C 90 16 116/74 99 Room Air 12/09/22 08:00 Room Air 12/09/22 07:30 36.6 C 75 16 119/76 95 Room Air all noted and reviewed including below
[2022-12-09] MEDS: ATORVASTATIN 40 MG TAB PO SCH (19:53)
[2022-12-09] MEDS: ANASTROZOLE 1 MG TAB PO SCH (19:53)
[2022-12-09] MEDS: DOCUSATE SODIUM/SENNA 50/8.6MG TAB PO SCH (19:55)
[2022-12-09] MEDS: NICOTINE 21 MG/24 HR TDSY TD SCH (19:55)
[2022-12-09] MEDS: PRAMIPEXOLE DIHYDROCHLO 0.5 MG TAB PO SCH (19:57)
[2022-12-09] MEDS: VENLAFAXINE HCL XR 150 MG CAPXR PO SCH (19:57)
[2022-12-09] MEDS: traZODone HCL 100 MG TAB PO SCH (19:57)
[2022-12-09] MEDS: tiZANidine HCL 4 MG TABLET PO PRN (20:08)
[2022-12-10] MEDS: oxyCODONE HCL IR 5 MG TAB (IMMEDIATE RELEASE) PO PRN ×5 (01:29→20:18)
[2022-12-10] MEDS: POLYETHYLENE (MIRALAX) 17 GM PACK PO SCH ×2 (05:52→11:22)
[2022-12-10] MEDS: PANTOprazole 40 MG TAB PO SCH ×2 (08:27→20:17)
[2022-12-10] MEDS: GABAPENTIN 600 MG TAB PO SCH ×3 (08:28→20:18)
[2022-12-10] MEDS: CHOLECALCIFEROL 1,000 UNITS 25 MCG TAB PO SCH ×2 (08:28→20:17)
[2022-12-10] MEDS: lisinopril 20 MG TAB PO SCH (08:28)
[2022-12-10] MEDS: ACETAMINOPHEN 500 MG TAB PO PRN ×2 (08:28→18:40)
[2022-12-10] MEDS: FOLIC ACID 1 MG TAB PO SCH (08:28)
[2022-12-10] MEDS: dexAMETHasone 8 MG in SYRINGE 0 ML IV SCH (08:29)
[2022-12-10 09:08] LABS: Basophils # (auto) 0.02 K/uL (0-0.2); Basophils % (auto) 0.2 %; Eosinophils # (auto) 0.03 K/uL (0-0.50); Eosinophils % (auto) 0.2 %; Hematocrit (blood only) 29.1 % (37.0-47.0); Hemoglobin 9.4 g/dl (12.0-16.0); Immature Granulocytes # (auto) 0.04 K/uL (0.01-0.20); Immature Granulocytes % (auto) 0.3 %; Lymphocytes # (auto) 2.88 K/uL (1.2-3.4); Lymphocytes % (auto) 23.8 %; Mean Corpuscular Hemoglobin 29.3 pg (25.0-34.0); Mean Corpuscular Hgb Conc 32.3 g/dL (32.0-36.0); Mean Corpuscular Volume 90.7 fL (80.0-100.0); Mean Platelet Volume 9.1 fL (9.4-12.4); Monocytes # (auto) 0.84 K/uL (0.11-0.59); Neutrophils # (auto) 8.27 K/uL (1.40-6.50); Neutrophils % (auto) 68.5 %; Platelet Count 319 K/uL (130-400); RDW Coefficient of Variation 14.1 % (11.5-14.5); RDW Standard Deviation 46.6 fL (36.4-46.3); Red Blood Count 3.21 M/uL (4.20-5.40); White Blood Count 12.08 K/ul (4.8-10.8)
[2022-12-10 09:20] LABS: BUN Creatinine Ratio 21.2 (10-20); Calcium 8.6 mg/dl (8.6-10.3); Creatinine Clr Calc Pharmacy 107.5 ml/min; Est GFR (African American) 116.1 ml/min; Est GFR (Non-African American) 100.1 ml/min; Potassium 3.9 mmol/L (3.5-5.1)
--- NOTE | 2022-12-10 09:44 | Orthopedic Progress Note ---
Date of Service December 10, 2022 Assessment & Plan (1) Neurogenic claudication due to lumbar spinal stenosis: Plan: This time continue physical therapy monitor EVANGELINA output hopefully discharge to rehab Sunday. Admission and Anticipated Discharge Date Admission Date: December 08, 2022 Subjective Patient's back pain is controlled leg pain improved Physical Exam Physical Exam: Patient is at the bedside. Is constricted testing. Results & Data Vital Signs (Past 12 Hours) Vital Signs Temp Pulse Resp BP Pulse Ox O2 Del Method 12/10/22 08:35 Room Air 12/10/22 07:33 36.5 C 73 16 115/75 95 Room Air
--- NOTE | 2022-12-10 13:02 | Hospitalist Progress Note ---
Date of Service December 10, 2022 Assessment & Plan (1) Neurogenic claudication due to lumbar spinal stenosis: Plan: per previous hospitalist note with addendum: POD #0 - L3-L4 decompression with L3-S1 fusion - Pain control, PT, DVT prophylaxis per primary service - Encourage OOB as tolerated, incentive spirometry - Ordered nicotine patch per pt request, encouraged smoking cessation but pt not ready - Noted to have Metformin on medication list now but no listed dx of diabetes - pt states that she is on it for pain but it's not helping, confirms no dx of DM. Will hold Metformin, check A1c in AM, monitor BSGs, and adjust plan from there if needed. Discussed with pharmacist who will hold off on glycemic management consult for now - Continue ice to right shoulder as needed since this has been helpful with pain as outpatient 12/10 remains stable overall Hg remains at 9 anemia panel ordered pain management (2) COPD (chronic obstructive pulmonary disease): Plan: Not in exacerbation (3) HTN (hypertension): Plan: Stable Continue lisinopril (4) HLD (hyperlipidemia): (5) Depression: Plan: Continue Effexor (6) Anxiety: Plan: Continue Effexor As needed lorazepam (7) RLS (restless legs syndrome): Plan: Continue Mirapex (8) Coronary artery calcification: Plan: No cardiac symptoms Continue Lipitor (9) GERD (gastroesophageal reflux disease): Plan: No GI symptoms (10) Tobacco abuse: Plan plan of care discussed with patient in detail and at length all questions answered she is understanding, agreeable, comfortable with the plan of care Admission and Anticipated Discharge Date Admission Date: December 08, 2022 Subjective ff up for back surgery etc seen resting in bed, comfortable states she feels fine overall no chest pain, dyspnea, palpitations, dizziness pain control ok no other symptoms Review of Systems Review of Systems: all noted and negative except for above Physical Exam Physical Exam: General- oriented x 3, not in distress, speaks in sentences with no effort or accessory muscle use Eyes- anicteric Neck- no JVD Lungs- clear BS BL Heart- normal rate, regular rhythm; no murmurs Abdomen- normal bowel sounds, nondistended, soft, no tenderness Extremities- no pretibial edema, no calf tenderness Neuro- alert, oriented x 3; no gross focal neurologic deficits Skin- warm & dry Results & Data Results & Data Vital Signs (Past 12 Hours) Vital Signs Temp Pulse Resp BP Pulse Ox O2 Del Method 12/10/22 08:35 Room Air 12/10/22 07:33 36.5 C 73 16 115/75 95 Room Air all noted and reviewed including below
[2022-12-10] MEDS: SODIUM CHLORIDE 0.9% 1000ML 1,000 ML IV SCH ×2 (15:14→20:02)
[2022-12-10] MEDS ORDERED: SODIUM CHLORIDE 0.9% 1000ML 500 ML IV ONE (15:17)
[2022-12-10] MEDS ORDERED: SODIUM CHLORIDE 0.9% 1000ML 1,000 ML IV SCH (15:30)
[2022-12-10] MEDS: ANASTROZOLE 1 MG TAB PO SCH (20:17)
[2022-12-10] MEDS: PRAMIPEXOLE DIHYDROCHLO 0.5 MG TAB PO SCH (20:17)
[2022-12-10] MEDS: ATORVASTATIN 40 MG TAB PO SCH (20:17)
[2022-12-10] MEDS: VENLAFAXINE HCL XR 150 MG CAPXR PO SCH (20:17)
[2022-12-10] MEDS: NICOTINE 21 MG/24 HR TDSY TD SCH (20:18)
[2022-12-10] MEDS: DOCUSATE SODIUM/SENNA 50/8.6MG TAB PO SCH (20:22)
[2022-12-10] MEDS: traZODone HCL 100 MG TAB PO SCH (21:36)
[2022-12-10] MEDS: tiZANidine HCL 4 MG TABLET PO PRN (21:46)
[2022-12-11] MEDS: oxyCODONE HCL IR 5 MG TAB (IMMEDIATE RELEASE) PO PRN ×3 (01:59→10:16)
[2022-12-11] MEDS: SODIUM CHLORIDE 0.9% 1000ML 1,000 ML IV SCH (05:42)
[2022-12-11 06:50] LABS: Vitamin B12 457 pg/ml (180-914)
[2022-12-11] MEDS: traMADol HCL 50 MG TABLET PO PRN (07:40)
--- NOTE | 2022-12-11 08:40 | Orthopedic Progress Note ---
Date of Service December 11, 2022 Assessment & Plan (1) Neurogenic claudication due to lumbar spinal stenosis: Plan: We will continue physical therapy plan for discharge today or tomorrow to rehab once authorized. Admission and Anticipated Discharge Date Admission Date: December 08, 2022 Subjective Back pain controlled leg pain improved Physical Exam Physical Exam: Patient is sitting at the bedside. Skin strength testing. Appears comfortable. Results & Data Vital Signs (Past 12 Hours) Vital Signs Temp Pulse Pulse Resp BP Pulse Ox O2 Del Method 12/11/22 07:36 36.6 C 70 12 104/70 99 Room Air 12/11/22 04:00 36.6 C 80 18 123/81 96 Room Air 12/11/22 00:00 36.8 C 70 16 116/72 97 Room Air
[2022-12-11] MEDS: dexAMETHasone 8 MG in SYRINGE 0 ML IV SCH (08:54)
[2022-12-11] MEDS: lisinopril 20 MG TAB PO SCH (08:54)
[2022-12-11] MEDS: ACETAMINOPHEN 500 MG TAB PO PRN (08:54)
[2022-12-11] MEDS: CHOLECALCIFEROL 1,000 UNITS 25 MCG TAB PO SCH (08:55)
[2022-12-11] MEDS: tiZANidine HCL 4 MG TABLET PO PRN (08:55)
[2022-12-11] MEDS: GABAPENTIN 600 MG TAB PO SCH (08:55)
[2022-12-11] MEDS: FOLIC ACID 1 MG TAB PO SCH (08:56)
[2022-12-11] MEDS: PANTOprazole 40 MG TAB PO SCH (08:56)
--- NOTE | 2022-12-11 10:49 | Discharge Summary ---
Date of Service December 11, 2022 Admission HPI Per Admitting Provider This is a 52-year-old female that has marked clinical status with considerable worsening back and leg pain and failing course of nonoperative care she is here for surgical intervention. Principal Diagnosis Lumbar spinal stenosis with neurogenic claudication Discharge Data Allergies Allergy/AdvReac Type Severity Reaction Status Date / Time amlodipine [From Norvasc] AdvReac Intermediate Elevated BP Verified 12/08/22 11:20 hydralazine AdvReac Intermediate Elevated BP Verified 12/08/22 11:20 mirtazapine [From Remeron] AdvReac Mild Vomiting Verified 12/08/22 11:20 ropinirole [From Requip] AdvReac Mild Vomiting Verified 12/08/22 11:20 Consultations 12/08/22 16:51 Consult Hospitalist Routine Procedures Performed Operation Date: 12/08/22 12:35 Actual Procedures p L3-L4 Decompression, L3-S1 Fusion, Spinal Cord Monitoring(Not Applicable) - Geovanny Culp DO Ordered Studies 12/08/22 07:00 [place] lumbar spine 2-3V Routine Hospital Course (1) Neurogenic claudication due to lumbar spinal stenosis: Patient went lumbar decompression fusion tolerated this well was taken to orthopedic for postoperative. Postop day 1 she was up and ambulating progress postop day #2 on postop day #3 pain was well controlled extra strength testing EVANGELINA drain decreased appropriately. Subsequently discharged home. Discharge orders instructions from the chart for further review. Total Time Total Time Spent Total Time Spent (In Minutes): 20 minutes Discharge Plan Discharge Items Patient Disposition: Transfer Inpatient Rehab Fac Reason For Visit: Spinal Stenosis, Lumbar Region without Neurogenic Discharge Diagnosis: Lumbar spinal stenosis with neurogenic claudication Activity: As commented below Non-emergency contact: Primary Care Provider Call non-emergency contact if: you have any medication questions Follow-up/Referrals: Cordelia Mcmillan MD [Primary Care Provider] - Diet: Regular Addtl Attending Provider Instructions: ACTIVITY RECOMMENDATIONS: SELF CARE INSTRUCTIONS AFTER THORACIC/LUMBAR FUSIONS 1. You may walk to your tolerance. It is good exercise for your legs and back. Expect some back and intermittent leg aches and pains. 2. You may perform "counter-top" level activities (make a sandwich, shannon with a project, etc.). 3. No bending or lifting of more than 10 pounds or back twisting of any nature (roll like a log when turning in bed). 4. You may ride in a car for 20-30 minutes at a time. No driving until after your first visit with your doctor. 5. Frequent changes of position and restricting sitting to 30 minutes at a time will help limit the amount of back spasms and stiffness you may experience. 6. You may discontinue the use of ambulatory aids (cane, crutches, etc.) once your strength and confidence allow. 7. You may clinical pharmacologist the shower and let water strike your incision when you arrive home at least once daily. Do not take a tub bath, sit in a hot tub or go into a swimming pool until after your first recheck in the office. SPECIAL CARE INSTRUCTIONS: VERY IMPORTANT TO READ AND REVIEW A. Your surgical incision has been closed with a cosmetic suture under the skin that will dissolve in about 6 weeks. In 14 days, you can use a pair of clean scissors and cut the suture that is left outside of the skin at the ends of your incision. 1. The small skin tapes can be removed 7 days after surgery if they have not fallen off by that point. 2. You may keep the wound open to air as much as possible to promote healing after post-op day number 5 unless told otherwise by your doctor. 3. If you think the wound looks like it is becoming infected (redness or wo rsening drainage) and/or you are experiencing fever, chill or worsening back pain and muscle spasms, contact the office so that we may evaluate you as soon as possible. B. Complications are uncommon, but please contact us if you have any signs or symptoms of: 1. wound infection (fever higher than 102.5 degrees F, redness, separation of wound, drainage, or increasing pain from the incision) 2. blood clots in legs (pain, swelling, redness and warmth in legs) 3. urinary tract infection (fever higher than 102.5 degrees F, burning upon urination or increased frequency of urination) 4. nerve problems (inability to walk on your toes or heels, numbness, loss of bowel or bladder control) 5. any other symptoms that concern you C. Please call the office at if you have any concerns or questions about your operation or recovery. D. No smoking! Smoking drastically decreases the chance of a solid fusion. E. Do not take any anti-inflammatory medications (Indocin, Advil, Motrin, Aspirin, Naprosyn, etc.) as these may inhibit the chance of a solid fusion. Tylenol is okay to take for pain. MANAGING PAIN AFTER SPINAL SURGERY 1. Narcotic medication is intended for short-term use and will be provided for surgical pain. Surgical pain usually lasts for a period of 4-6 weeks. Narcotic medication includes Percocet, Vicodin, Darvocet, Tylenol #3 or Lortab. 2. Longer-term pain is more appropriately treated with non-narcotic medication such as Tylenol ES. 3. Muscle spasm is not appropriately treated with narcotics. Muscle relaxers such as Soma, Flexeril or Skelaxin can be used along with Tylenol ES. 4. Remember that we all live with some "aches and pains". This is not unusual or uncommon after an injury or as we get older. a. Back pain is expected and may include muscle spasms for 4 to 6 weeks after surgery. The pain should gradually improve. If the pain worsens for no apparent reason, please contact the office. b. Intermittent leg pain may also be experienced and should not be concerned about unless it worsens for no apparent reason. If so, please contact the office. 5. We will provide appropriate medication within the normal guidelines of their prescribed use. We will also be very cautious and aware of potential abuse and extended duration of patients' medication needs. a. Pain medications are for your comfort and to assist with sleep and rest so that the tissue can heal. They are not provided in order to return to normal activity and should not be used through the day. To do so or worsening pain at night can result from ongoing tissue damage and development of tolerance to the prescribed medicine. 6. Please allow 2-3 days to process refills. Prescriptions will not be mailed but must be picked up at the office. FOLLOW UP VISIT: Keep your scheduled follow-up appointment. Any questions, please call the office at . Pending Studies at Discharge: No Stand-Alone Forms: My [facility] [address] Skilled Items Patient informed of condition?: Yes DNR: No Discharge Level of Care: Acute rehab Communicable Disease: No Discharge Prognosis: Improving Lines: None Urinary Catheter: No Medications and DC Order Prescriptions: New tramadol 50 mg tablet 50 mg PO Q6H PRN (Reason: pain, moderate) Qty: 30 0RF oxycodone 5 mg tablet 5 mg PO Q6H PRN (Reason: pain, severe) Qty: 30 0RF Continued atorvastatin [Lipitor] 40 mg Tablet 40 mg PO PM anastrozole [Arimidex] 1 mg Tablet 1 mg PO QPM gabapentin 600 mg Tablet 600 mg PO TID tizanidine [Zanaflex] 4 mg Tablet 4 mg PO TID PRN (Reason: Muscle Spasm) venlafaxine [Effexor XR] 150 mg Capsule,Extended Release 24hr 150 mg PO PM trazodone 100 mg Tablet 100 mg PO HS cyanocobalamin (vitamin B-12) 1,000 mcg/mL Solution 1,000 mcg IM MONTHLY folic acid 1 mg Tablet 1 mg PO QAM oxycodone-acetaminophen [Percocet] 7.5-325 mg Tablet 1 tab PO QID PRN (Reason: Pain) cholecalciferol (vitamin D3) [Vitamin D3] 25 mcg (1,000 unit) Tablet 25 mcg PO BID omeprazole 20 mg Tablet,Disintegrat, Delay Rel 20 mg PO BID metformin 500 mg Tablet 1,000 mg PO QPM lisinopril 20 mg Tablet 20 mg PO QAM pramipexole [Mirapex] 0.125 mg Tablet 0.125 mg PO UD Patient Comments: TAKES 4 TAB AT HS furosemide [Lasix] 20 mg Tablet 20 mg PO DAILY PRN (Reason: LEG SWELLING) albuterol sulfate 90 mcg/actuation Hfa Aerosol Inhaler 1 inh INHALATION QID PRN (Reason: SHORT OF BREATH) Stiolto Respimat 2.5-2.5 mcg/actuation Mist 2 puff INHALATION DAILY PRN (Reason: SHORT OF BREATH) Prolia 60 mg/mL Syringe 60 mg SUBCUT UD Patient Comments: EVERY 6 MONTHS Discharge Orders: Discharge Order (Routine); Ordered 12/11/22 Ordered By: Geovanny Gurrola/Other Patient Handouts: Prediabetes, 5 Steps for Eating Healthier Admission Data Admit Date/Time: 12/08/22 15:09 Attending Provider: Geovanny Culp Admit Provider: Geovanny Culp Primary Care Provider: Cordelia Mcmillan Other Providers: Pma Brown ; Saw Patton
--- NOTE | 2022-12-11 16:59 | Hospitalist Progress Note ---
Date of Service December 11, 2022 Assessment & Plan (1) Neurogenic claudication due to lumbar spinal stenosis: Plan: per previous hospitalist note with addendum: POD #0 - L3-L4 decompression with L3-S1 fusion - Pain control, PT, DVT prophylaxis per primary service - Encourage OOB as tolerated, incentive spirometry - Ordered nicotine patch per pt request, encouraged smoking cessation but pt not ready - Noted to have Metformin on medication list now but no listed dx of diabetes - pt states that she is on it for pain but it's not helping, confirms no dx of DM. Will hold Metformin, check A1c in AM, monitor BSGs, and adjust plan from there if needed. Discussed with pharmacist who will hold off on glycemic management consult for now - Continue ice to right shoulder as needed since this has been helpful with pain as outpatient 12/11 remains stable overall Hg remains at 9 anemia panel ordered Fe 15 will order Ferrous sulfate BID further eval and management per PCP (2) COPD (chronic obstructive pulmonary disease): Plan: Not in exacerbation (3) HTN (hypertension): Plan: BP on the lower side advised patient to hold Lisinopril check BP at home daily, hold Lisinopril for BP < 120 (4) HLD (hyperlipidemia): (5) Depression: Plan: Continue Effexor (6) Anxiety: Plan: Continue Effexor As needed lorazepam (7) RLS (restless legs syndrome): Plan: Continue Mirapex (8) Coronary artery calcification: Plan: No cardiac symptoms Continue Lipitor (9) GERD (gastroesophageal reflux disease): Plan: No GI symptoms (10) Tobacco abuse: Plan plan of care discussed with patient in detail and at length all questions answered she is understanding, agreeable, comfortable with the plan of care Admission and Anticipated Discharge Date Admission Date: December 08, 2022 Subjective ff up for s/p back surgery, etc seen resting in bed, in good spirits states she feels fine overall pain adequately controlled ambulating with no problems, dizziness no chest pain, dyspnea, palpitations no other symptoms states she is ready for discharge today Review of Systems Review of Systems: all noted and negative except for above Physical Exam Physical Exam: General- oriented x 3, not in distress, speaks in sentences with no effort or accessory muscle use Eyes- anicteric Neck- no JVD Lungs- clear BS BL Heart- normal rate, regular rhythm; no murmurs Abdomen- normal bowel sounds, nondistended, soft, nontender Extremities- no pretibial edema, no calf tenderness Neuro- alert, oriented x 3; no gross focal neurologic deficits Skin- warm & dry Results & Data Results & Data Vital Signs (Past 12 Hours) Vital Signs Temp Pulse Resp BP Pulse Ox O2 Del Method 12/11/22 09:35 Room Air 12/11/22 07:36 36.6 C 70 12 104/70 99 Room Air all noted and reviewed including below
== END 2022-12-11 13:37 | DRG 455 ==
LOC: ASU 10:41 → 3E 15:09

== ENCOUNTER 2023-09-03 05:56 | Inpatient (IN) ==
--- NOTE | 2023-08-03 15:41 | PAT Medication Instructions ---
Medication Instructions Date of Service August 03, 2023 Home Medications Medication Instructions Recorded tramadol 50 mg tablet 50 mg PO Q6H PRN pain, moderate 12/09/22 #30 tabs anastrozole 1 mg tablet (Arimidex) 1 mg PO QPM atorvastatin 40 mg tablet (Lipitor) 40 mg PO PM cholecalciferol (vitamin D3) 25 mcg (1,000 unit) tablet (Vitamin D3) 25 mcg PO BID cyanocobalamin (vitamin B-12) 1,000 mcg/mL injection solution 1,000 mcg IM MONTHLY folic acid 1 mg tablet 1 mg PO QAM gabapentin 600 mg tablet 600 mg PO TID omeprazole 20 mg delayed release,disintegrating tablet 20 mg PO BID oxycodone-acetaminophen 7.5 mg-325 mg tablet (Percocet) 1 tab PO QID PRN Pain tizanidine 4 mg tablet (Zanaflex) 4 mg PO TID PRN Muscle Spasm trazodone 100 mg tablet 100 mg PO HS venlafaxine 150 mg capsule,extended release 24 hr (Effexor XR) 150 mg PO PM albuterol sulfate 90 mcg/actuation aerosol inhaler 1 inh inhalation QID PRN SHORT OF BREATH denosumab 60 mg/mL subcutaneous syringe (Prolia) 60 mg subcut UD furosemide 20 mg tablet (Lasix) 20 mg PO DAILY PRN LEG SWELLING lisinopril 20 mg tablet 20 mg PO QAM metformin 500 mg tablet 1,000 mg PO QPM pramipexole 0.125 mg tablet (Mirapex) 0.125 mg PO UD tiotropium 2.5 mcg-olodaterol 2.5 mcg/actuation mist for inhalation (Stiolto Respimat) 2 puff inhalation DAILY PRN SHORT OF BREATH tramadol 50 mg tablet 50 mg PO Q6H PRN pain, moderate Continue as directed cyanocobalamin (vitamin B-12) 1,000 mcg/mL injection solution 1,000 mcg IM MONTHLY denosumab 60 mg/mL subcutaneous syringe (Prolia) 60 mg subcut UD ASK your prescriber and surgeon anastrozole 1 mg tablet (Arimidex) 1 mg PO QPM DO NOT take the morning of surgery cholecalciferol (vitamin D3) 25 mcg (1,000 unit) tablet (Vitamin D3) 25 mcg PO BID folic acid 1 mg tablet 1 mg PO QAM furosemide 20 mg tablet (Lasix) 20 mg PO DAILY PRN LEG SWELLING lisinopril 20 mg tablet 20 mg PO QAM Take morning of surgery With a small sip of water, OTHERWISE NOTHING TO EAT OR DRINK AFTER MIDNIGHT: gabapentin 600 mg tablet 600 mg PO TID omeprazole 20 mg delayed release,disintegrating tablet 20 mg PO BID oxycodone-acetaminophen 7.5 mg-325 mg tablet (Percocet) 1 tab PO QID PRN Pain (if needed) tizanidine 4 mg tablet (Zanaflex) 4 mg PO TID PRN Muscle Spasm (if needed) albuterol sulfate 90 mcg/actuation aerosol inhaler 1 inh inhalation QID PRN SHELDON RT OF BREATH (use if needed; please bring with you to hospital day of surgery if possible) tiotropium 2.5 mcg-olodaterol 2.5 mcg/actuation mist for inhalation (Stiolto Respimat) 2 puff inhalation DAILY PRN SHORT OF BREATH (if needed) tramadol 50 mg tablet 50 mg PO Q6H PRN pain, moderate (if needed) Take evening before surgery atorvastatin 40 mg tablet (Lipitor) 40 mg PO PM cholecalciferol (vitamin D3) 25 mcg (1,000 unit) tablet (Vitamin D3) 25 mcg PO BID gabapentin 600 mg tablet 600 mg PO TID omeprazole 20 mg delayed release,disintegrating tablet 20 mg PO BID oxycodone-acetaminophen 7.5 mg-325 mg tablet (Percocet) 1 tab PO QID PRN Pain (if needed) tizanidine 4 mg tablet (Zanaflex) 4 mg PO TID PRN Muscle Spasm (if needed) trazodone 100 mg tablet 100 mg PO HS venlafaxine 150 mg capsule,extended release 24 hr (Effexor XR) 150 mg PO PM albuterol sulfate 90 mcg/actuation aerosol inhaler 1 inh inhalation QID PRN SHORT OF BREATH (if needed) furosemide 20 mg tablet (Lasix) 20 mg PO DAILY PRN LEG SWELLING (if needed) metformin 500 mg tablet 1,000 mg PO QPM pramipexole 0.125 mg tablet (Mirapex) 0.125 mg PO UD tiotropium 2.5 mcg-olodaterol 2.5 mcg/actuation mist for inhalation (Stiolto Respimat) 2 puff inhalation DAILY PRN SHORT OF BREATH (if needed) tramadol 50 mg tablet 50 mg PO Q6H PRN pain, moderate (if needed) Other Notes If you have any questions please call us at [phone] or [phone] or [phone] or [phone]
--- NOTE | 2023-08-06 12:02 | Anesthesiology Consultation ---
Date of Service August 06, 2023 Assessment & Plan (1) Encounter for pre-operative examination: Chart Review Chart Review: Acceptable Risk for Surgery (pending PCP and cardio clearances ) and Patient seen in Pre Admission Testing - Awaiting PCP clearance 08/20/23 (Dr. Cordelia Mcmillan- [place]) - Awaiting cardio clearance 08/14/23 ([facility] [place]- Dr. Solis) - Check BSG AM DOS Right UE restriction Per PAT appt on 08/06/23, no recent illness/disease exposures, illness related symptoms, or recent illness/disease positive tests. Will leave to surgeon's discretion if preop Covid testing needed L3-4 decompression, L3-S1 fusion 12/08/22= Done under GA with Grade 2 view with MAC #3. ETT #7.0. Per anesthesiologist progress note 12/08/22= "patient reports back pain, slightly worse then previous surgery, IV pain medication with little help, BP borderline low with SBP 90s, educated patient on pain regimen and impro sarai sustained pain control with oral meds, patient in agreement" Teaching & Discussion Pre-Anesthesia Teaching/Discussion Notes: Instructed NPO after midnight before surgery,except medications with 15 cc of water. Medication instructions provided according to the PAT guidelines. History Surgery Operation Date: 09/03/23 10:05 Proposed Procedures p C4-6 Anterior Cervical Discectomy and Fusion, C5 Corpectomy - Geovanny Culp, Height/Weight Height: 5 ft 6 in Weight: 86.9 kg Allergies Allergy/AdvReac Type Severity Reaction Status Date / Time amlodipine [From Norvasc] AdvReac Intermediate Elevated BP Verified 08/03/23 13:50 hydralazine AdvReac Intermediate Elevated BP Verified 08/03/23 13:50 mirtazapine [From Remeron] AdvReac Mild Vomiting Verified 08/03/23 13:50 ropinirole [From Requip] AdvReac Mild Vomiting Verified 08/03/23 13:50 Medications Home Medications Medication Instructions Recorded Confirmed Last Taken anastrozole 1 mg tablet (Arimidex) 1 mg PO QPM 01/12/22 08/03/23 12/07/22 20:00 atorvastatin 40 mg tablet (Lipitor) 40 mg PO PM 01/12/22 08/03/23 12/07/22 20:00 cholecalciferol (vitamin D3) 25 25 mcg PO BID 01/12/22 08/03/23 12/07/22 20:00 mcg (1,000 unit) tablet (Vitamin D3) cyanocobalamin (vitamin B-12) 1,000 mcg IM MONTHLY 01/12/22 08/03/23 11/29/22 1,000 mcg/mL injection solution folic acid 1 mg tablet 1 mg PO QAM 01/12/22 08/03/23 12/07/22 06:00 gabapentin 600 mg tablet 600 mg PO TID 01/12/22 08/03/23 12/08/22 04:00 omeprazole 20 mg delayed 20 mg PO BID 01/12/22 08/03/23 12/08/22 04:00 release,disintegrating tablet oxycodone-acetaminophen 7.5 mg-325 1 tab PO QID PRN Pain 01/12/22 08/03/23 12/08/22 08:00 mg tablet (Percocet) tizanidine 4 mg tablet (Zanaflex) 4 mg PO TID PRN Muscle Spasm 01/12/22 08/03/23 12/07/22 20:00 trazodone 100 mg tablet 100 mg PO HS 01/12/22 08/03/23 12/07/22 20:00 venlafaxine 150 mg 150 mg PO PM 01/12/22 08/03/23 12/07/22 20:00 capsule,extended release 24 hr (Effexor XR) albuterol sulfate 90 mcg/actuation 1 inh inhalation QID PRN SHORT OF 11/07/22 08/03/23 Unknown aerosol inhaler BREATH denosumab 60 mg/mL subcutaneous 60 mg subcut UD 11/07/22 08/03/23 11/29/22 syringe (Prolia) furosemide 20 mg tablet (Lasix) 20 mg PO DAILY PRN LEG SWELLING 11/07/22 08/03/23 Unknown metformin 500 mg tablet 1,000 mg PO QPM 11/07/22 08/03/23 12/06/22 pramipexole 0.125 mg tablet 0.125 mg PO UD 11/07/22 08/03/23 12/07/22 20:00 (Mirapex) tiotropium 2.5 mcg-olodaterol 2.5 2 puff inhalation DAILY PRN SHORT 11/07/22 08/03/23 12/06/22 mcg/actuation mist for inhalation OF BREATH (Stiolto Respimat) tramadol 50 mg tablet 50 mg PO Q6H PRN pain, moderate 12/09/22 08/03/23 Unknown #30 tabs Additional Notes: Metformin listed in medication list- per patient- has not taken x months- adamantly denies history of diabetes Past Medical History Medical History (Updated 08/06/23 @ 16:25 by Karuna Morgan PA-C) Hyperglycemia Pt was on Metformin in the past (currently in med list)- but states she hasn't taken for months Hgb A1C 6.1 at [facility] appt 08/06/23 (in pre-diabetic range) History of COVID-19 + home test 05/2023. reports loss of taste/smell, fatigue. resolved. Herniated lumbar intervertebral disc History of anesthesia reaction pt states that has been told of "HR and BP dropping" post-op Neuropathy legs bilat Coronary artery calcification [facility]. Dr. Solis Spinal stenosis DJD (degenerative joint disease) Fibromyalgia Osteoporosis IBS (irritable bowel syndrome) History of GI bleed 05/2021 (hospitalized with GIB; [facility]) > no blood transfusion required GERD (gastroesophageal reflux disease) controlled, stable per pt Limb alert care status RUE History of breast cancer Rt breast Dx 2019 - s/p right mastectomy, on Arimidex TMJ (temporomandibular joint disorder) denies any history of locking ADHD no meds Depression Anxiety RLS (restless legs syndrome) HLD (hyperlipidemia) HTN (hypertension) Patient denies Off all blood pressure meds COPD (chronic obstructive pulmonary disease) stable and controlled per pt; last rescue inhaler use last week Exercise / Class Metabolic Activity III < 4 Walking/Shop/Light housework (no chest pain or SOB with flat surface ambulation- uses cane or wheeled walker with ambulation ) Past Family History Family History Other No history of adverse effect of anesthesia Past Surgical History Surgical History History of lumbar surgery Family history of reaction to anesthesia SISTER>PASSES OUT Fusion of spine LUMBAR History of breast biopsy History of repair of left rotator cuff History of tonsillectomy and adenoidectomy History of right knee joint replacement partial History of arthroscopy ankle x 2 History of foot surgery Rt History of total abdominal hysterectomy and bilateral salpingo-oophorectomy History of esophagogastroduodenoscopy (EGD) History of colonoscopy History of reconstruction of right breast multiple surgery - unsuccessful History of reduction surgery of left breast History of right mastectomy Past Anesthesia History No Hx of Anesthesia Complications (usually hypotension and bradycardia post operatively ) and No Family Hx of Anesthesia Complications History of PONV No Hx of PONV and No Hx of Motion Sickness Social History Smoking Status: Current every day smoker tobacco type: cigarettes Smoking cigarettes per day: 20-30 CIG PER DAY>ADVISED Do You Dip or Chew Tobacco: No Hx Alcohol Use: No Hx Substance Use: No substance use type: does not use Review of Systems Patient denies chest pain, shortness of breath at rest, dyspnea on exertion, cough, wheezing, palpitations. No hx of seizures, stroke, GA, apnea/snoring. No hx of blood clots or blood transfusions Physical Exam Vital Signs VITALS BP 101/69 (baseline per patient- no dizziness or syncope) P 80 TEMP 98.0 SP02 95% RESP 16 Constitutional no acute distress ENMT Mouth: no TMJ clicking Thyromental Distance: > or= 3.5 Finger Breadths (3.5) Mallampati Class: I Missing side teeth and molars Neck + limited neck extension Respiratory normal respiratory effort; no respiratory distress Auscultation: lungs clear to auscultation bilaterally and + diminished lung sounds (mildly throughout); no wheezes Cardiovascular Rate/Rhythm: regular rate and regular rhythm Heart Sounds: no murmur Vessels: no carotid bruit Musculoskeletal Spine: no pain with cervical ROM Extremities: extremities normal to inspection Psychiatric Orientation: alert Lab Results Anesthesia Preop Results Results Anesthesia Widget: WBC 7.70 K/ul (4.8-10.8) 08/06/23 Hgb 12.9 g/dl (12.0-16.0) 08/06/23 Hct 38.7 % (37.0-47.0) 08/06/23 Plt 318 K/uL (130-400) 08/06/23 Na 139 mmol/L (136-145) 08/06/23 K 4.2 mmol/L (3.5-5.1) 08/06/23 Cl 107 mmol/L (98-107) 08/06/23 CO2 25 mmol/L (21-32) 08/06/23 BUN 8 mg/dl (6-23) 08/06/23 Creat 0.69 mg/dl (0.6-1.2) 08/06/23 Glucose Level 112 mg/dl (70-99(Fasting)) H 08/06/23 PT 10.6 Seconds (9.0-12.0) 08/06/23 PTT 27.4 Seconds (21.0-31.0) 08/06/23 INR 1.0 (0.9-1.1) 08/06/23 HA1c 6.1 % (4.5-5.6) H 08/06/23 Urine Color Yellow 08/06/23 Urine Appearance Clear (Clear) 08/06/23 Urine pH 5.5 (4.5-7.5) 08/06/23 Urine Specific Kane 1.012 (1.000-1.030) 08/06/23 Urine Protein Negative (Negative) 08/06/23 Urine Glucose (UA) Negative (Negative) 08/06/23 Urine Ketones Negative (Negative) 08/06/23 Urine Blood Negative (Negative) 08/06/23 Urine Nitrite Negative (Negative) 08/06/23 Urine Bilirubin Negative (Negative) 08/06/23 Urine Urobilinogen Negative (Negative) 08/06/23 Urine Leukocyte Esterase Trace (Negative) H 08/06/23 Urine WBC (Auto) 1-5 /hpf (0-5) 08/06/23 Urine RBC (Auto) 0-4 /hpf (0-4) 08/06/23 Urine Hyaline Casts (Auto) 1-5 /lpf (0-5) 08/06/23 Urine Epithelial Cells (Auto) >30 /lpf (0-5) H 08/06/23 Urine Bacteria (Auto) Negative (Negative) 08/06/23 Blood Type O Negative 08/06/23 Antibody Screen NEGATIVE 08/06/23 Testing Electrocardiogram Date: 08/06/23 Findings: + NSR @ (75bpm) Normal EKG per cardio Chest X-Ray Date: 08/06/23 Findings: + NAD FINDINGS: No lines and tubes are seen. Calcified aortic knob is seen. The lungs are clear. No evidence of pleural effusion or pneumothorax. Right surgical clips are seen in the axilla. Echocardiogram Date: 03/07/21 EF 60-65% Mild tricuspid regurgitation Normal diastolic function Thickened mitral valve Stress Test Date: 08/29/21 Pharmacologic MPHR 60% No significant ischemia Low probability of CAD EF 76%
[2023-09-03] MEDS ORDERED: ACETAMINOPHEN 500 MG TAB PO SCH (06:00)
[2023-09-03] MEDS ORDERED: LR 60ML/HR IV SCH (06:00)
[2023-09-03] MEDS ORDERED: CeleBREX 200 MG CAP PO SCH (06:00)
[2023-09-03] MEDS ORDERED: LR 15ML/HR IV SCH (06:00)
[2023-09-03] MEDS ORDERED: ceFAZolin 2000MG 2,000 MG/15 ML SYR IV SCH (06:00)
[2023-09-03] MEDS ORDERED: GABAPENTIN 900 MG DOSE PO SCH (06:00)
[2023-09-03] MEDS ORDERED: DexMEDEtomidine HCL IV 100 MCG/ML VIAL IV ONE ×2 (07:05→07:06)
[2023-09-03] MEDS ORDERED: KETAMINE HCL 10MG/ML SYR ONE (07:05)
[2023-09-03] MEDS ORDERED: ATROPINE SULFATE 0.1 MG/ML 10ML SYR IV PRN (07:06)
[2023-09-03] MEDS ORDERED: PROMETHAZINE HCL 6.25 MG in SODIUM CHLORIDE 0.9% 50 ML IV PRN (07:06)
[2023-09-03] MEDS ORDERED: ePHEDrine sulfate 50 MG/ML AMP IV PRN (07:06)
[2023-09-03] MEDS ORDERED: ONDANSETRON INJ 2 MG/ML 2 ML VIAL IV PRN ×2 (07:06→11:42)
[2023-09-03] MEDS ORDERED: MIDAZOLAM HCL 1 MG/ML 2ML VIAL ONE (07:21)
[2023-09-03] MEDS ORDERED: PROPOFOL IV EMULSION 10 MG/ML 20 ML VIAL IV ONE (07:21)
[2023-09-03] MEDS ORDERED: fentaNYL citrate PF 100 MCG/2 ML VIAL ONE ×2 (07:21→08:31)
[2023-09-03] MEDS ORDERED: LIDOCAINE 2% 2 ML VIAL/AMP(20MG/ML) INFIL ONE (07:21)
[2023-09-03] MEDS ORDERED: ceFAZolin 330 MG/ML 1 GM VIAL ONE (07:22)
--- NOTE | 2023-09-03 07:47 | History & Physical Bridge Note ---
Date of Service September 03, 2023 History & Physical Bridge Note I have examined the patient, reviewed the History & Physical and in the interval since the performance of the History & Physical I have noted the following changes of clinical significance: no changes noted
--- NOTE | 2023-09-03 07:50 | History & Physical Report ---
Date of Service September 03, 2023 Assessment & Plan (1) Cervical stenosis of spinal canal: Plan: Anterior cervical discectomy and fusion she 4 to C6, corpectomy C5. History of Present Illness Chief Complaint: Neck and arm pain Primary Care Provider: Cordelia Mcmillan MD This is a 53-year-old female presents with chronic persistent neck and arm pain after failing course of nonoperative care is here for surgical invention. Allergies Allergy/AdvReac Type Severity Reaction Status Date / Time amlodipine [From Norvasc] AdvReac Intermediate Elevated BP Verified 09/03/23 06:41 hydralazine AdvReac Intermediate Elevated BP Verified 09/03/23 06:41 mirtazapine [From Remeron] AdvReac Mild Vomiting Verified 09/03/23 06:41 ropinirole [From Requip] AdvReac Mild Vomiting Verified 09/03/23 06:41 Home Medications Medication Instructions Recorded Confirmed Type anastrozole 1 mg tablet (Arimidex) 1 mg PO QPM 01/12/22 09/03/23 History atorvastatin 40 mg tablet (Lipitor) 80 mg PO PM 01/12/22 09/03/23 History cholecalciferol (vitamin D3) 25 25 mcg PO BID 01/12/22 09/03/23 History mcg (1,000 unit) tablet (Vitamin D3) cyanocobalamin (vitamin B-12) 1,000 mcg IM MONTHLY 01/12/22 09/03/23 History 1,000 mcg/mL injection solution folic acid 1 mg tablet 1 mg PO QAM 01/12/22 09/03/23 History gabapentin 600 mg tablet 600 mg PO QID 01/12/22 09/03/23 History omeprazole 20 mg delayed 20 mg PO BID 01/12/22 09/03/23 History release,disintegrating tablet oxycodone-acetaminophen 7.5 mg-325 1 tab PO QID PRN Pain 01/12/22 09/03/23 History mg tablet (Percocet) tizanidine 4 mg tablet (Zanaflex) 4 mg PO TID PRN Muscle Spasm 01/12/22 09/03/23 History trazodone 100 mg tablet 100 mg PO HS 01/12/22 09/03/23 History venlafaxine 150 mg 225 mg PO PM 01/12/22 09/03/23 History capsule,extended release 24 hr (Effexor XR) albuterol sulfate 90 mcg/actuation 1 inh inhalation QID PRN SHORT OF 11/07/22 09/03/23 History aerosol inhaler BREATH denosumab 60 mg/mL subcutaneous 60 mg subcut UD 11/07/22 09/03/23 History syringe (Prolia) furosemide 20 mg tablet (Lasix) 20 mg PO DAILY PRN LEG SWELLING 11/07/22 3 History metformin 500 mg tablet 1,000 mg PO QPM 11/07/22 09/03/23 History pramipexole 0.125 mg tablet 0.125 mg PO UD 11/07/22 09/03/23 History (Mirapex) tiotropium 2.5 mcg-olodaterol 2.5 2 puff inhalation DAILY PRN SHORT 11/07/22 09/03/23 History mcg/actuation mist for inhalation OF BREATH (Stiolto Respimat) tramadol 50 mg tablet 50 mg PO Q6H PRN pain, moderate 12/09/22 09/03/23 Rx #30 tabs Past Med/Surg History Medical History (Updated 09/03/23 @ 07:50 by Geovanny Culp DO) Hyperglycemia Pt was on Metformin in the past (currently in med list)- but states she hasn't taken for months Hgb A1C 6.1 at PAT appt 08/06/23 (in pre-diabetic range) History of COVID-19 + home test 05/2023. reports loss of taste/smell, fatigue. resolved. Herniated lumbar intervertebral disc History of anesthesia reaction pt states that has been told of "HR and BP dropping" post-op Neuropathy legs bilat Coronary artery calcification [facility]. Dr. Solis Spinal stenosis DJD (degenerative joint disease) Fibromyalgia Osteoporosis IBS (irritable bowel syndrome) History of GI bleed 05/2021 (hospitalized with GIB; [facility]) > no blood transfusion required GERD (gastroesophageal reflux disease) controlled, stable per pt Limb alert care status RUE History of breast cancer Rt breast Dx 2019 - s/p right mastectomy, on Arimidex TMJ (temporomandibular joint disorder) denies any history of locking ADHD no meds Depression Anxiety RLS (restless legs syndrome) HLD (hyperlipidemia) HTN (hypertension) Patient denies Off all blood pressure meds COPD (chronic obstructive pulmonary disease) stable and controlled per pt; last rescue inhaler use last week Surgical History History of lumbar surgery Family history of reaction to anesthesia SISTER>PASSES OUT Fusion of spine LUMBAR History of breast biopsy History of repair of left rotator cuff History of tonsillectomy and adenoidectomy History of right knee joint replacement partial History of arthroscopy ankle x 2 History of foot surgery Rt History of total abdominal hysterectomy and bilateral salpingo-oophorectomy History of esophagogastroduodenoscopy (EGD) History of colonoscopy History of reconstruction of right breast multiple surgery - unsuccessful History of reduction surgery of left breast History of right mastectomy Family History Other No history of adverse effect of anesthesia Social History Smoking Status: Current every day smoker Cigarettes Per Day: 20-30 CIG PER DAY>ADVISED; Second Hand Exposure: No; Do You Dip or Chew Tobacco: No; Tobacco Cessation Education Requested by Patient: No Hx Alcohol Use: No Hx Substance Use: No Preferred Language: [place] Verdean Communication Ability: Effective Sales Department Supervisor Required: No Beliefs That Will Affect Care: None Current Living Situation: Spouse Feels Safe at Home: Yes Safety Concerns: Feels Safe At This Time Assistive Devices: Glasses Physical Exam Physical Exam: Patient is alert and oriented Heart regular rate and rhythm Lungs clear Results & Data Results & Data Vital Signs (Past 12 Hours) Vital Signs Temp Pulse Resp BP Pulse Ox O2 Del Method 09/03/23 06:49 36.6 C 80 16 117/78 95 Room Air
[2023-09-03] MEDS ORDERED: HYDROmorphone INJ 2 MG/ML SYR/VIAL ONE ×2 (08:29→10:36)
[2023-09-03] MEDS ORDERED: ePHEDrine sulfate 50 MG/ML AMP ONE (08:41)
[2023-09-03] MEDS ORDERED: PHENYLEPHRINE HCL 10 MG/ML VIAL ONE (08:41)
[2023-09-03] MEDS ORDERED: ONDANSETRON INJ 2 MG/ML 2 ML VIAL ONE ×2 (08:41→09:56)
[2023-09-03] MEDS ORDERED: DEXAMETHASONE SOD INJ 4 MG/ML VIAL ONE (08:41)
[2023-09-03] MEDS ORDERED: ROCURONIUM BROMIDE 10 MG/ML 5 ML VIAL IV ONE ×2 (09:03)
[2023-09-03] MEDS ORDERED: GLYCOPYRROLATE 0.2 MG/ML VIAL ONE (09:25)
[2023-09-03] MEDS ORDERED: NEOSTIGMINE METHYLSULFATE 1 MG/ML 10ML VIAL ONE (09:25)
[2023-09-03] MEDS ORDERED: FLOSEAL HEMOSTATIC MATRIX 10ML TOP ONE (09:26)
--- NOTE | 2023-09-03 09:36 | Operative Report ---
Post Operative Report Pre & Post Diagnosis Operation Date: 09/03/23 07:45 Pre-Op Diagnosis: Cervical spinal stenosis with radiculopathy Post-Op Diagnosis: Same I identified the patient and participated in the time-out.: Yes Procedure Operation Date: 09/03/23 07:45 Actual Procedures #1 anterior cervical corpectomy of C5 with bilateral medial facetectomies and foraminotomies. #2 anterior cervical arthrodesis C4-C6. #3 placement of 21 mm peek cage C4-C5. #4 placement locally harvested morselized autograft combined with I factor in the interbody cage. #5 placement of K2 M plate and screws from C4-C6. Surgeon Geovanny Culp, DO [employer] Taylor Gonzalez Estimated Blood Loss 10 Findings Consistent with Post-Op Diagnosis Specimens None Indications This is a 53-year-old female presents above-mentioned diagnosis after failed course of nonoperative care she is here for surgical invention. Description of Procedure Patient was met with identified informed consent obtained. Patient was then taken to the operative suite underwent patient placed in spine position on the Elio table with the head [place] wharf tender head. All bony promises well-padded eyes inspected to ensure no external precipice spine. This point the anterior cervical spine was prepped and draped in normal sterile fashion. The assistance of fluoroscopy and a 5C5 vertebral body and a transverse incision was placed along the right anterior aspect of the cervical spine overlying this region. Blunt dissection with the assistance of bipolar electrocautery was performed down to and exposing the anterior cervical spine from C4-C6. Self-retaining tractors placed. Then performed a complete discectomy of C4-C5 to the uncovertebral joints bilaterally followed by C5-C6. Napoleon distracting pins were then placed in C4 and C6 to distract across the C5 vertebral body. A complete corpectomy was then performed including removal of all posterior annular fibers longitudinal ligament bilateral foraminotomies. Endplates were then burred to subcortical bleeding bone and a 21 mm peek cage filled with local ly harvested morselized autograft I factor tapped in position. Distracting apparatus was removed. A K2 M plate and screws applied with the assistance of fluoroscopy. The incision was then copiously irrigated explored to ensure no damage to surrounding structures remaining bleeding. 10 round EVANGELINA drain inserted. The incision was then closed with 2 Vicryl in the fascia and 4 Monocryl for final skin closure. Steri-Strips sterile dressing placed. Patient awakened taken to PACU in stable condition. Please note spinal cord monitoring was utilized at the procedure no changes noted. Lastly Taylor Gonzalez was present at the entire surgery and while the patient positioning complex portions of the surgery and final skin closure. I attest to the content of the Intraoperative Record and any orders documented therein. Any exceptions are noted below.
[2023-09-03] MEDS: fentaNYL citrate PF 100 MCG/2 ML VIAL IV PRN ×3 (09:55→10:25)
--- NOTE | 2023-09-03 10:29 | Fluoroscopy Report ---
FL cervical 2-3V CLINICAL HISTORY: ACDF C4-C6/C5 CORPECTOMY COMPARISON STUDY: None. FLUOROSCOPY TIME: 10 seconds FLUOROSCOPY IMAGES: 2 Ka,r: 0.95 mGy FINDINGS: Anterior cervical discectomy and fusion at C4-C6 with C5 corpectomy and bone graft. The vu dware appears intact. Surgical drain and endotracheal tube are noted. IMPRESSION: Fluoroscopic assistance as above. ACT 112: Negative or not required by law. Electronically signed by: Pj Mehta M.D. 09/03/2023 10:28 AM
[2023-09-03] MEDS ORDERED: ACETAMINOPHEN 1000 MG/100 ML IV IV ONE (10:37)
--- NOTE | 2023-09-03 11:10 | Anesthesiology Progress Note ---
Date of Service September 03, 2023 Anesthesia Post Procedure Vital Signs Vital Signs: Temp Pulse Resp BP Pulse Ox O2 Del Method O2 Flow Rate 09/03/23 10:20 83 13 108/70 99 Room Air 09/03/23 10:10 76 12 118/86 96 Oxymask 3 09/03/23 10:00 88 22 142/98 H 100 Oxymask 4 09/03/23 09:50 85 13 127/106 H 100 Oxymask 5 09/03/23 09:44 36.0 C L 100 H 13 154/100 H 100 Oxymask 5 09/03/23 06:49 36.6 C 80 16 117/78 95 Room Air Pain Intensity Lower Back: Pain Intensity: 9 Transfer of Care Handoff Completed per policy Notes Mental Status: alert / awake / arousable Patient Amnestic to Procedure: Yes Nausea / Vomiting: adequately controlled Pain: adequately controlled Airway Patency, RR, SpO2: stable & adequate BP & HR: stable & adequate Hydration State: stable & adequate Anesthetic Complications: no major complications apparent
[2023-09-03] MEDS ORDERED: FUROSEMIDE 20 MG TAB PO PRN (11:42)
[2023-09-03] MEDS ORDERED: NALOXONE HCL 0.4 MG/1 ML VIAL/CARP IV PRN (11:42)
[2023-09-03] MEDS ORDERED: traMADol HCL 50 MG TABLET PO PRN (11:42)
[2023-09-03] MEDS ORDERED: ACETAMINOPHEN 1,000 MG/100 ML VIAL IV PRN (11:42)
[2023-09-03] MEDS ORDERED: HYDROmorphone INJ 1 MG/ML SYRINGE IV PRN (11:42)
[2023-09-03] MEDS ORDERED: MAGNESIUM HYDROXIDE SUSP 30 ML UDC PO PRN (11:42)
[2023-09-03] MEDS ORDERED: ONDANSETRON 4 MG OD TAB PO PRN (11:42)
[2023-09-03] MEDS ORDERED: diphenhydrAMINE Capsule 25 MG CAP PO PRN (11:42)
[2023-09-03] MEDS ORDERED: HYDROmorphone INJ 0.5 MG/0.5 ML SYR IV PRN (11:42)
[2023-09-03] MEDS ORDERED: METOCLOPRAMIDE HCL INJ 5 MG/ML 2 ML VIAL IV PRN (11:42)
[2023-09-03] MEDS ORDERED: FAMOTIDINE 20 MG TAB PO PRN (11:42)
[2023-09-03] MEDS ORDERED: tiZANidine HCL 4 MG TABLET PO PRN (11:42)
[2023-09-03] MEDS ORDERED: LORazepam 0.5 MG TAB PO PRN (11:42)
[2023-09-03] MEDS ORDERED: RACEPINEPHRINE 2.25% NEBU SOLN 0.5 ML VIAL INH PRN (11:42)
[2023-09-03] MEDS ORDERED: ALUMINUM/MAGNESIUM SUSP 30 ML UDC PO PRN (11:42)
[2023-09-03] MEDS ORDERED: PROMETHAZINE HCL 12.5 MG in SODIUM CHLORIDE 0.9% 50 ML IV PRN (11:42)
[2023-09-03] MEDS ORDERED: DO NOT ADMINISTER FLU VACCINE PRN (11:42)
[2023-09-03] MEDS ORDERED: dexAMETHasone 8 MG in SYRINGE 0 ML IV PRN (11:42)
[2023-09-03] MEDS ORDERED: bisacodyL 10 MG SUPP PR PRN (11:42)
[2023-09-03] MEDS ORDERED: ACETAMINOPHEN 500 MG TAB PO PRN (11:42)
[2023-09-03] MEDS ORDERED: SOD PHOSPHATE/SOD BIPHOSPHATE ENEMA 132 ML BTL PR PRN (11:42)
[2023-09-03] MEDS ORDERED: DO NOT ADMINISTER PNEUMOCOCCAL VACCINE PRN (11:42)
[2023-09-03] MEDS ORDERED: ALBUTEROL HFA 8 GM INHALER INH PRN (11:42)
[2023-09-03] MEDS ORDERED: hydrOXYzine HCl 25 MG TAB PO PRN (11:42)
[2023-09-03] MEDS ORDERED: LORazepam 0.5 MG in SYRINGE 0.25 ML IV PRN (11:42)
[2023-09-03] MEDS ORDERED: PHARMACY GLYCEMIC MGMT CONSULT PRN (11:42)
--- NOTE | 2023-09-03 12:01 | Pharmacy Report ---
Pharmacy Glycemic Short Note 2 - Date of Service September 03, 2023 - Glycemic Short BSG Results (Last 24 hours): 09/03/23 09/03/23 06:55 09:50 POC Glucose 106 H 139 H OUTPATIENT ANTIDIABETIC REGIMEN: * metformin 1gm PO Q PM * A1c = 6.1% 08/06/23 ASSESSMENT: * Patient admitted for cervical spine stenosis / radiculopathy. * Of note, when patient was admitted for spinal surgery in November of this year, she did not require any insulin and BSGs remained acceptable. She did receive IV dexamethasone during that admission as well. * Pt appears to have received dexamethasone kerline-op (vended in ER); and there are orders for dexamethasone IV starting tomorrow. * Will initial Novolog correctional insulin only given historical data. Will not initiate prandial or basal insulin at this time, rather will monitor BSG trend. * Could consider restarting metformin tomorrow if tolerating diet and renal fxn adequate. PLAN FOR INPATIENT GLYCEMIC CONTROL: * Hold outpatient oral diabetes medications (metformin) * Basal insulin * none at this time * Bolus insulin * NovoLog per scale ACHS or Q6hrs while NPO * Goal Range: Low 110 mg/dL - High 180 mg/dL * Correction Factor: 20 mg/dL/unit * Nutritional / Prandial insulin: none at this time
[2023-09-03] MEDS ORDERED: GLUCOSE 40% GEL 15 GM TUBE PO PRN (12:10)
[2023-09-03] MEDS ORDERED: GLUCOSE 10 TAB/TUBE PO PRN (12:10)
[2023-09-03] MEDS ORDERED: DEXTROSE 50% 50 ML SYRINGE IV PRN (12:10)
[2023-09-03] MEDS ORDERED: GLUCAGON FOR INJ 1 MG VIAL SQ PRN (12:10)
[2023-09-03] MEDS ORDERED: CARBOHYDRATES FOR HYPOGLYCEMIA PO PRN (12:10)
[2023-09-03] MEDS: INSULIN ASPART PER UNIT CHARGE SC SCH ×2 (12:32→17:39)
[2023-09-03] MEDS: SODIUM CHLORIDE 0.9% 1,000 ML IV SCH ×2 (12:33→20:25)
--- NOTE | 2023-09-03 12:36 | Consultation ---
Date of Consultation September 03, 2023 Assessment & Plan (1) Cervical stenosis of spinal canal: (2) Tobacco abuse: (3) HTN (hypertension): (4) HLD (hyperlipidemia): (5) Coronary artery calcification: (6) COPD (chronic obstructive pulmonary disease): (7) GERD (gastroesophageal reflux disease): (8) Depression: (9) Anxiety: (10) History of breast cancer: (11) RLS (restless legs syndrome): (12) DJD (degenerative joint disease): Plan Ms. Arredondo is a 53 year old female that presents to the [facility] for an elective C4-C6 ACDF with C5 corpectomy under the care of Dr. Culp after failed conservative measures were taken for her neurogenic claudication due to spinal stenosis. Patient reportedly was experiencing neck and arm pain. Additional PMH includes history of breast cancer status post right mastectomy, h/o GIB, COPD, HTN, HLD, ADHD, Depression, RLS, and GERD. She was hospitalized at [facility] 06/07 for GI bleed but no blood transfusions were administered at that time. Patient follows with cardiology [facility] for CAD. Patient does use a 4 wheeled walker at baseline. Patient has chronic degenerative joint disease and previous lumbar spine surgery with Dr. Culp in November/2022. Patient sitting upright in her hospital bed in no apparent distress. She is resting when I entered the room but is easily arousable to verbal stimuli. Patient is AAO x 4 and does not complain of cervical pain or neuropathy in her arms. Patient with chronic neuropathy bilateral legs from lumbar stenosis previously. EVANGELINA drain x 1 with juan red blood output. 10 mL EBL intraoperatively. Continuous pulse ox in place per protocol O2 saturation 98%. Patient reports smoking 2 packs of cigarettes per day and would prefer a nicotine patch. Smoking cessation recommended. Cervical stenosis of spinal canal: POD# 0 s/p C4-C6 ACDF, C5 corpectomy with Dr. Culp. Per ortho for pain control, wound care, anticoagulation and activities. Monitor H&H, EBL 10mL. preop hemoglobin 08/06/2023 12.9; will trend in a.m. continue incentive spirometry, PT/OT when appropriate Continuous pulse ox while c-collar in place HTN: CAD: Chronic stable Does not currently take any anti-hypertensive medications Most recent echo 08/14/2023 preoperatively. EF 55 to 60%, mild LV with trace MR/TR and G1 DDx ECG preoperatively normal sinus rhythm. followed by [facility] cardiology in [place] Dr. Solis Takes Lasix PRN, reportedly takes it about 3-4 times per month COPD: Tobacco use: Chronic stable Smokes 2 ppd cigarettes; Nicotine patch ordered Smoking cessation recommended Takes Stiolto for COPD; uses it rarely; continue No daily medications or daily O2 at home Prediabetes: chronic stable Diet controlled A1C 08/06: 6.1, Metformin on her medication list but has not been taking it for months reportedly DJD: H/O lumbar surgery: Surgery lumbar 11/2022 Takes Oxycodone, Percocet; admitting team to manage pain medications RLS: Chronic stable Takes Gabapentin and Mirapex;continue Takes Trazadone PRN if the RLS wakes her up at night. Does not report taking it more than 3-4 x/month HLD: Chronic stable Takes atorvastatin;continue Depression and anxiety: Chronic stable Takes Effexor; continue History of breast cancer: Chronic stable Status post right mastectomy Avoid blood draws, blood pressures in right arm History of GI bleed: Chronic stable Was hospitalized 06/07 in [facility] Reports no blood transfusions Disposition: PCP: Dr. Mcmillan CODE STATUS: Full code VTE prophylaxis: Per admitting team I spent a total of 60 minutes coordinating, documenting, and providing care for this patient excluding time spent in the performance of separately billed services. All of the aforementioned completed while collaborating with the assigned attending physician for a full treatment plan. Please see their addendum for further details. Supervising Physician Co-Signing Physician Notes I have seen and examined the patient and have discussed the case with the provider above. I agree with the assessment and plan as stated. Thank you for this consultation. DO Kevin History of Present Illness Requesting Physician: Dr. Culp Reason for Consultation: post-operative medical consultation Attending Physician: Geovanny Culp DO History of Present Illness Ms. Arredondo is a 53 year old female that presents to the [facility] for an elective C4-C6 ACDF with C5 corpectomy under the care of Dr. Culp after failed conservative measures were taken for her neurogenic claudication due to spinal stenosis. Patient reportedly was experiencing neck and arm pain. Additional PMH includes history of breast cancer status post right mastectomy, h/o GIB, COPD, HTN, HLD, ADHD, Depression, RLS, and GERD. She was hospitalized at [facility] 06/07 for GI bleed but no blood transfusions were administered at that time. Patient follows with cardiology [facility] for CAD. Most recent echo 08/14/2023 preoperatively. EF 55 to 60%, mild LV with trace MR/TR and G1 DDx . ECG preoperatively normal sinus rhythm. Patient denies headache, dizziness, visual or auditory disturbances, shortness of breath, chest pain, palpitations, abdominal pain or tenderness, recent falls or trauma. Patient does use a 4 wheeled walker at baseline. Patient has chronic degenerative joint disease and previous lumbar spine surgery with Dr. Culp in November/2022. Patient sitting upright in her hospital bed in no apparent distress. She is resting when I entered the room but is easily arousable to verbal stimuli. Patient is AAO x 4 and does not complain of cervical pain or neuropathy in her arms. Patient with chronic neuropathy bilateral legs from lumbar stenosis previously. EVANGELINA drain x 1 with juan red blood output. 10 mL EBL intraoperatively. Patient reports smoking 2 packs of cigarettes per day and would prefer a nicotine patch. Smoking cessation recommended. [facility] Hospitalist service was consulted for assistance with medical management. Thank you kindly for this consultation. [facility] Hospitalist service is available 09/04 via [place] [employer]. Allergies Allergy/AdvReac Type Severity Reaction Status Date / Time amlodipine [From Norvasc] AdvReac Intermediate Elevated BP Verified 09/03/23 06:41 hydralazine AdvReac Intermediate Elevated BP Verified 09/03/23 06:41 mirtazapine [From Remeron] AdvReac Mild Vomiting Verified 09/03/23 06:41 ropinirole [From Requip] AdvReac Mild Vomiting Verified 09/03/23 06:41 Home Medications Medication Instructions Recorded Confirmed Type anastrozole 1 mg tablet (Arimidex) 1 mg PO QPM 01/12/22 09/03/23 History atorvastatin 40 mg tablet (Lipitor) 80 mg PO PM 01/12/22 09/03/23 History cholecalciferol (vitamin D3) 25 25 mcg PO BID 01/12/22 09/03/23 History mcg (1,000 unit) tablet (Vitamin D3) cyanocobalamin (vitamin B-12) 1,000 mcg IM MONTHLY 01/12/22 09/03/23 History 1,000 mcg/mL injection solution folic acid 1 mg tablet 1 mg PO QAM 01/12/22 09/03/23 History gabapentin 600 mg tablet 600 mg PO QID 01/12/22 09/03/23 History omeprazole 20 mg delayed 20 mg PO BID 01/12/22 09/03/23 History release,disintegrating tablet oxycodone-acetaminophen 7.5 mg-325 1 tab PO QID PRN Pain 01/12/22 09/03/23 History mg tablet (Percocet) tizanidine 4 mg tablet (Zanaflex) 4 mg PO TID PRN Muscle Spasm 01/12/22 09/03/23 History trazodone 100 mg tablet 100 mg PO HS 01/12/22 09/03/23 History venlafaxine 150 mg 225 mg PO PM 01/12/22 09/03/23 History capsule,extended release 24 hr (Effexor XR) albuterol sulfate 90 mcg/actuation 1 inh inhalation QID PRN SHORT OF 11/07/22 09/03/23 History aerosol inhaler BREATH denosumab 60 mg/mL subcutaneous 60 mg subcut UD 11/07/22 09/03/23 History syringe (Prolia) furosemide 20 mg tablet (Lasix) 20 mg PO DAILY PRN LEG SWELLING 11/07/22 09/03/23 History metformin 500 mg tablet 1,000 mg PO QPM 11/07/22 09/03/23 History pramipexole 0.125 mg tablet 0.125 mg PO UD 11/07/22 09/03/23 History (Mirapex) tiotropium 2.5 mcg-olodaterol 2.5 2 puff inhalation DAILY PRN SHORT 11/07/22 09/03/23 History mcg/actuation mist for inhalation OF BREATH (Stiolto Respimat) tramadol 50 mg tablet 50 mg PO Q6H PRN pain, moderate 12/09/22 09/03/23 Rx #30 tabs oxycodone 5 mg tablet 5 mg PO Q6H PRN pain #30 tabs 09/03/23 09/03/23 Rx Patient History Medical History RLS (restless legs syndrome) Hyperglycemia Pt was on Metformin in the past (currently in med list)- but states she hasn't taken for months Hgb A1C 6.1 at PAT appt 08/06/23 (in pre-diabetic range) History of COVID-19 + home test 05/2023. reports loss of taste/smell, fatigue. resolved. Herniated lumbar intervertebral disc History of anesthesia reaction pt states that has been told of "HR and BP dropping" post-op Neuropathy legs bilat Coronary artery calcification [facility] Cardiology. Dr. Solis Spinal stenosis DJD (degenerative joint disease) Fibromyalgia Osteoporosis IBS (irritable bowel syndrome) History of GI bleed 05/2021 (hospitalized with GIB; [facility]) > no blood transfusion required GERD (gastroesophageal reflux disease) controlled, stable per pt Limb alert care status RUE History of breast cancer Rt breast Dx 2019 - s/p right mastectomy, on Arimidex TMJ (temporomandibular joint disorder) denies any history of locking ADHD no meds Depression Anxiety RLS (restless legs syndrome) HLD (hyperlipidemia) HTN (hypertension) Patient denies Off all blood pressure meds COPD (chronic obstructive pulmonary disease) stable and controlled per pt; last rescue inhaler use last week Surgical History History of lumbar surgery Family history of reaction to anesthesia SISTER>PASSES OUT Fusion of spine LUMBAR History of breast biopsy History of repair of left rotator cuff History of tonsillectomy and adenoidectomy History of right knee joint replacement partial History of arthroscopy ankle x 2 History of foot surgery Rt History of total abdominal hysterectomy and bilateral salpingo-oophorectomy History of esophagogastroduodenoscopy (EGD) History of colonoscopy History of reconstruction of right breast multiple surgery - unsuccessful History of reduction surgery of left breast History of right mastectomy Family History Other No history of adverse effect of anesthesia Social History Smoking Status: Current every day smoker Cigarettes Per Day: 20-30 CIG PER DAY>ADVISED; Second Hand Exposure: No; Do You Dip or Chew Tobacco: No; Tobacco Cessation Education Requested by Patient: No Hx Alcohol Use: No Hx Substance Use: No Preferred Language: Amharic Communication Ability: Effective Mailing Machine Operator Required: No Beliefs That Will Affect Care: None Current Living Situation: Spouse Feels Safe at Home: Yes Safety Concerns: Feels Safe At This Time Assistive Devices: Glasses Review of Systems Review of Systems: Neuro: (-) Falls, trauma, slurred speech HEENT: (-) AVITIA, dizziness, dysphagia, visual or auditory changes CV: (-) CP, palpitations, swelling Resp: (-) SOB GI: (-) appetite changes, N/V/D, bowel changes : (-) urinary changes Skin: (-) rashes Psych: (-) anxiety, depression Physical Exam Physical Exam: Neuro: AAOx4, PERRLA, no aphagia, memory changes, CNII-XII grossly intact HEENT: head normocephalic, moist mucus membranes CV: S1/S2, (-) M/G/R, (-) edema, cap refill < 3 seconds . cervical EVANGELINA drain x1 juan red bloody output. Resp: Lungs CTA in all english. On RA. Continuous pulse ox; 98% GI: Abdomen S/NT/ND, Ax4 bowel sounds, (-) CVA tenderness Musculoskeletal: 5/5 B/L UE strength, 5/5 B/L LE strength. No gait disturbance Skin: (-) rashes , (-) erythema. Psych: euthymic mood Results & Data Vital Signs (Past 12 Hours) Vital Signs Temp Pulse Pulse Resp BP Pulse Ox O2 Del Method 09/03/23 11:58 36.4 C L 76 18 116/73 95 Room Air 09/03/23 11:46 80 16 94 Room Air 09/03/23 11:25 36.8 C 72 106/64 95 Room Air 09/03/23 11:10 36.9 C 67 21 116/66 98 Room Air 09/03/23 11:00 36.9 C 73 17 90/64 L 94 Room Air 09/03/23 10:50 36.9 C 69 20 83/69 L 97 Room Air 09/03/23 10:40 36.9 C 70 17 96/61 L 96 Room Air 09/03/23 10:30 36.9 C 72 20 97/66 L 94 Room Air 09/03/23 10:20 83 13 108/70 99 Room Air 09/03/23 10:10 76 12 118/86 96 Oxymask 09/03/23 10:00 88 22 142/98 H 100 Oxymask 09/03/23 09:50 85 13 127/106 H 100 Oxymask 09/03/23 09:44 36.0 C L 100 H 13 154/100 H 100 Oxymask 09/03/23 06:49 36.6 C 80 16 117/78 95 Room Air O2 Flow Rate 09/03/23 11:58 09/03/23 11:46 09/03/23 11:25 09/03/23 11:10 09/03/23 11:00 09/03/23 10:50 09/03/23 10:40 09/03/23 10:30 09/03/23 10:20 09/03/23 10:10 3 09/03/23 10:00 4 09/03/23 09:50 5 09/03/23 09:44 5 09/03/23 06:49 Diagnostic Findings Cervical Spine X-Ray 09/03/23 07:45 FL cervical 2-3V CLINICAL HISTORY: ACDF C4-C6/C5 CORPECTOMY COMPARISON STUDY: None. FLUOROSCOPY TIME: 10 seconds FLUOROSCOPY IMAGES: 2 Ka,r: 0.95 mGy FINDINGS: Anterior cervical discectomy and fusion at C4-C6 with C5 corpectomy and bone graft. The hardware appears intact. Surgical drain and endotracheal tube are noted. IMPRESSION: Fluoroscopic assistance as above. ACT 112: Negative or not required by law. Electronically signed by: Pj Mehta M.D. 09/03/2023 10:28 AM
[2023-09-03] MEDS: oxyCODONE HCL IR 5 MG TAB (IMMEDIATE RELEASE) PO PRN ×2 (13:36→20:28)
[2023-09-03] MEDS: GABAPENTIN 600 MG TAB PO SCH ×3 (13:36→20:29)
[2023-09-03] MEDS: NICOTINE 21 MG/24 HR TDSY TD SCH (14:35)
[2023-09-03] MEDS ORDERED: LORazepam 0.5 MG TAB PO STA (16:58)
[2023-09-03] MEDS: ceFAZolin 2000MG 2,000 MG/15 ML SYR IV SCH (17:14)
[2023-09-03] MEDS: PANTOprazole 40 MG TAB PO SCH (20:29)
[2023-09-03] MEDS: CHOLECALCIFEROL 1,000 UNITS 25 MCG TAB PO SCH (20:29)
[2023-09-03] MEDS ORDERED: VENLAFAXINE HCL XR 75 MG CAPXR PO SCH (21:00)
[2023-09-03] MEDS ORDERED: ANASTROZOLE 1 MG TAB PO SCH (21:00)
[2023-09-03] MEDS ORDERED: PRAMIPEXOLE DIHYDROCHLO 0.5 MG TAB PO SCH (21:00)
[2023-09-03] MEDS ORDERED: ATORVASTATIN 40 MG TAB PO SCH (21:00)
[2023-09-03] MEDS ORDERED: DOCUSATE SODIUM/SENNA 50/8.6MG TAB PO SCH (21:00)
[2023-09-04] MEDS: ceFAZolin 2000MG 2,000 MG/15 ML SYR IV SCH (00:32)
[2023-09-04] MEDS: oxyCODONE HCL IR 5 MG TAB (IMMEDIATE RELEASE) PO PRN ×2 (00:32→04:36)
[2023-09-04] MEDS ORDERED: POLYETHYLENE (MIRALAX) 17 GM PACK PO SCH (06:00)
[2023-09-04] MEDS: CHOLECALCIFEROL 1,000 UNITS 25 MCG TAB PO SCH (07:59)
[2023-09-04] MEDS: NICOTINE 21 MG/24 HR TDSY TD SCH (07:59)
[2023-09-04] MEDS: GABAPENTIN 600 MG TAB PO SCH (07:59)
[2023-09-04] MEDS: PANTOprazole 40 MG TAB PO SCH (07:59)
[2023-09-04] MEDS ORDERED: UMECLIDINIUM/VILANTEROL 62.5/25MCG 7 PUFFS/INHALER INH SCH (09:00)
[2023-09-04] MEDS ORDERED: dexAMETHasone 6 MG in SYRINGE 0 ML IV SCH (09:00)
[2023-09-04] MEDS ORDERED: FOLIC ACID 1 MG TAB PO SCH (09:00)
--- NOTE | 2023-09-04 10:28 | Hospitalist Progress Note ---
Date of Service September 04, 2023 Assessment & Plan (1) Cervical stenosis of spinal canal: (2) Tobacco abuse: (3) HTN (hypertension): (4) HLD (hyperlipidemia): (5) Coronary artery calcification: (6) COPD (chronic obstructive pulmonary disease): (7) GERD (gastroesophageal reflux disease): (8) Depression: (9) Anxiety: (10) History of breast cancer: (11) RLS (restless legs syndrome): (12) DJD (degenerative joint disease): Plan Ms. Arredondo is a 53 year old female that presents to the [facility] for an elective C4-C6 ACDF with C5 corpectomy under the care of Dr. Culp after failed conservative measures were taken for her neurogenic claudication due to spinal stenosis. Patient reportedly was experiencing neck and arm pain. Additional PMH includes history of breast cancer status post right mastectomy, h/o GIB, COPD, HTN, HLD, ADHD, Depression, RLS, and GERD. She was hospitalized at [facility] 06/07 for GI bleed but no blood transfusions were administered at that time. Patient follows with cardiology [facility] for CAD. Patient does use a 4 wheeled walker at baseline. Patient has chronic degenerative joint disease and previous lumbar spine surgery with Dr. Culp in November/2022. Patient sitting upright in her hospital bed in no apparent distress. She is resting when I entered the room but is easily arousable to verbal stimuli. Patient is AAO x 4 and does not complain of cervical pain or neuropathy in her arms. Patient with chronic neuropathy bilateral legs from lumbar stenosis previously. EVANGELINA drain x 1 with juan red blood output. 10 mL EBL intraoperatively. Continuous pulse ox in place per protocol O2 saturation 98%. Patient reports smoking 2 packs of cigarettes per day and would prefer a nicotine patch. Smoking cessation recommended. Cervical stenosis of spinal canal: POD# 1 s/p C4-C6 ACDF, C5 corpectomy with Dr. Culp. Per ortho for pain control, wound care, anticoagulation and activities. Monitor H&H, EBL 10mL. preop hemoglobin 08/06/2023 12.9; no chest pain or palpitation or dizziness or weakness. PT/OT when appropriate HTN: CAD: Chronic stable Does not currently take any anti-hypertensive medications Most recent echo 08/14/2023 preoperatively. EF 55 to 60%, mild LV with trace MR/TR and G1 DDx ECG preoperatively normal sinus rhythm. followed by [facility] cardiology in [place] Dr. Solis Takes Lasix PRN, reportedly takes it about 3-4 times per month COPD: Tobacco use: Chronic stable Smokes 2 ppd cigarettes; Nicotine patch ordered Smoking cessation recommended Takes Stiolto for COPD; uses it rarely; continue No daily medications or daily O2 at home Prediabetes: chronic stable Diet controlled A1C 08/06: 6.1, Metformin on her medication list but has not been taking it for months reportedly DJD: H/O lumbar surgery: Surgery lumbar 11/2022 Takes Oxycodone, Percocet; admitting team to manage pain medications RLS: Chronic stable Takes Gabapentin and Mirapex;continue Takes Trazadone PRN if the RLS wakes her up at night. Does not report taking it more than 3-4 x/month HLD: Chronic stable Takes atorvastatin;continue Depression and anxiety: Chronic stable Takes Effexor; continue History of breast cancer: Chronic stable Status post right mastectomy Avoid blood draws, blood pressures in right arm History of GI bleed: Chronic stable Was hospitalized 06/07 in [facility] Reports no blood transfusions Disposition: PCP: Dr. Mcmillan CODE STATUS: Full code VTE prophylaxis: Per admitting team Admission and Anticipated Discharge Date Admission Date: September 03, 2023 Subjective Patient was seen and examined at bedside. Patient was sitting up in chair, on room air, cervical collar in situ, resting comfortably. Patient reports bilateral upper extremity radicular symptoms improving. Operative site pain under control. Patient reports eating okay, denies other ROS. Physical Exam Physical Exam: Neuro: AAOx4, PERRLA, no aphagia, memory changes, CNII-XII grossly intact HEENT: head normocephalic, moist mucus membranes CV: S1/S2, (-) M/G/R, (-) edema, cap refill < 3 seconds . cervical EVANGELINA drain x1 minimal serosanguineous collection noted. Anterior cervical dressing C/D/I. Cervical collar in situ Resp: Lungs CTA in all english. On RA. Continuous pulse ox; 98% GI: Abdomen S/NT/ND, Ax4 bowel sounds, (-) CVA tenderness Musculoskeletal: 5/5 B/L UE strength, 5/5 B/L LE strength. No gait disturbance Skin: (-) rashes , (-) erythema. Psych: euthymic mood Results & Data Results & Data Vital Signs (Past 12 Hours) Vital Signs Temp Pulse Resp BP Pulse Ox O2 Del Method O2 Flow Rate 09/04/23 08:00 36.9 C 86 18 106/68 96 Room Air 09/04/23 07:15 81 16 94 Room Air 09/04/23 07:04 Room Air 09/04/23 06:06 36.8 C 82 20 120/68 98 Nasal Cannula 1 09/04/23 03:50 36.7 C 78 18 160/83 H 98 Nasal Cannula 1 09/04/23 03:15 76 18 98 Nasal Cannula 1 09/04/23 02:26 36.7 C 91 H 16 121/69 97 Nasal Cannula 1 09/04/23 00:20 36.7 C 77 18 106/68 96 Nasal Cannula 1 09/03/23 23:34 82 16 96 Nasal Cannula 1
--- NOTE | 2023-09-04 10:34 | Discharge Summary ---
Date of Service September 04, 2023 Admission HPI Per Admitting Provider This is a 53-year-old female presents with chronic persistent neck and arm pain after failing course of nonoperative care is here for surgical invention. Principal Diagnosis Cervical spinal stenosis with radiculopathy Discharge Data Allergies Allergy/AdvReac Type Severity Reaction Status Date / Time amlodipine [From Norvasc] AdvReac Intermediate Elevated BP Verified 09/03/23 06:41 hydralazine AdvReac Intermediate Elevated BP Verified 09/03/23 06:41 mirtazapine [From Remeron] AdvReac Mild Vomiting Verified 09/03/23 06:41 ropinirole [From Requip] AdvReac Mild Vomiting Verified 09/03/23 06:41 Consultations 09/03/23 11:42 Consult Hospitalist Routine Procedures Performed Operation Date: 09/03/23 07:45 Actual Procedures p C4-6 Anterior Cervical Discectomy and Fusion, C5 Corpectomy, Spinal Cord Monitoring(Not Applicable) - Geovanny Culp DO Ordered Studies 09/03/23 07:45 FL cervical 2-3V Routine Hospital Course (1) Cervical stenosis of spinal canal: Patient underwent anterior cervical corpectomy tolerates well was taken to orthopedic for postoperative. Postop day 1 she was up and ambulating. She is swallowing well. No hoarseness. Arm pain improved. Excellent strength testing. EVANGELINA drain decreasing appropriately. Subsequent discharge home. Discharge orders instructions from the chart for further review. Total Time Total Time Spent Total Time Spent (In Minutes): 20 minutes Discharge Plan Discharge Items Patient Disposition: Home - Self-Care Reason For Visit: Spinal Stenosis, Cervical Region Discharge Diagnosis: Cervical spinal stenosis with radiculopathy Activity: As commented below Non-emergency contact: Primary Care Provider Call non-emergency contact if: you have any medication questions Follow-up/Referrals: Cordelia Mcmillan MD [Primary Care Provider] - Diet: Regular Addtl Attending Provider Instructions: ACTIVITY RECOMMENDATIONS: SELF CARE INSTRUCTIONS AFTER CERVICAL FUSIONS 1. No smoking. Smoking drastically decreases the chance of a solid fusion. 2. No bending, lifting more than 5 pounds, or twisting (roll like a log when turning in bed). 3. You may shower 3 days after surgery. Thoroughly dry wound. Do not soak in the tub. 4. Cervical collar: Must be worn at all times including sleeping. You may remove the brace only to bath, eat and if you are sitting in a recliner. 5. Please walk as much as you can for exercise. Gradually increase the distance that you walk as your endurance increases. SPECIAL CARE INSTRUCTIONS: VERY IMPORTANT TO READ AND REVIEW A. Do not take any anti-inflammatory medications (i.e. Indocin, Advil, Aspirin, Naprosyn, Aleve, Motrin, etc.) as these may inhibit the chance of a solid fusion. Tylenol is okay to take. B. Your surgical incision has been closed with a cosmetic suture under the skin that will dissolve in about 6 weeks. In 14 days, you can use a pair of clean scissors and cut the suture that is left outside of the skin at the ends of your incision. C. Complications are uncommon, but please contact us if you have any signs or symptoms of: 1. wound infection (fever higher than 102.5 degrees F, redness, separation of wound, drainage, or increasing pain from the incision) 2. blood clots in legs (pain, swelling, redness and warmth in legs) 3. urinary tract infection (fever higher than 102.5 degrees, burning upon urination or increased frequency of urination) 4. nerve problems (inability to walk on your toes or heels, numbness, loss of bowel or bladder control) 5. any other symptoms that concern you. D. Please call the office at if you have any concerns or questions about your operation or recovery. MANAGING PAIN AFTER SPINAL SURGERY 1. Narcotic medication is intended for short-term use and will be provided for surgical pain. Surgical pain usually lasts for a period of 4-6 weeks. Narcotic medication includes Percocet, Vicodin, Darvocet, Tylenol #3 or Lortab. 2. Longer-term pain is more appropriately treated with non-narcotic medication such as Tylenol ES. 3. Muscle spasm is not appropriately treated with narcotics. Muscle relaxers such as Soma, Flexeril or Skelaxin can be used along with Tylenol ES. 4. Remember that we all live with some "aches and pains". This is not unusual or uncommon after an injury or as we get older. 5. We will provide appropriate medication within the normal guidelines of their prescribed use. We will also be very cautious and aware of potential abuse and extended duration of patients' medication needs. 6. Please allow 2-3 days to process refills. Prescriptions will not be mailed but must be picked up at the office. FOLLOW UP VISIT: Keep your scheduled follow-up appointment. Any questions, please call the office at . Pending Studies at Discharge: No Stand-Alone Forms: [facility], Smoking Cessation Medications and DC Order Prescriptions: New oxycodone 5 mg tablet 5 mg PO Q6H PRN (Reason: pain) Qty: 30 0RF Continued atorvastatin [Lipitor] 40 mg Tablet 80 mg PO PM anastrozole [Arimidex] 1 mg Tablet 1 mg PO QPM gabapentin 600 mg Tablet 600 mg PO QID tizanidine [Zanaflex] 4 mg Tablet 4 mg PO TID PRN (Reason: Muscle Spasm) venlafaxine [Effexor XR] 150 mg Capsule,Extended Release 24hr 225 mg PO PM trazodone 100 mg Tablet 100 mg PO HS cyanocobalamin (vitamin B-12) 1,000 mcg/mL Solution 1,000 mcg IM MONTHLY folic acid 1 mg Tablet 1 mg PO QAM oxycodone-acetaminophen [Percocet] 7.5-325 mg Tablet 1 tab PO QID PRN (Reason: Pain) cholecalciferol (vitamin D3) [Vitamin D3] 25 mcg (1,000 unit) Tablet 25 mcg PO BID omeprazole 20 mg Tablet,Disintegrat, Delay Rel 20 mg PO BID pramipexole [Mirapex] 0.125 mg Tablet 0.125 mg PO UD Patient Comments: TAKES 4 TAB AT HS furosemide [Lasix] 20 mg Tablet 20 mg PO DAILY PRN (Reason: LEG SWELLING) albuterol sulfate 90 mcg/actuation Hfa Aerosol Inhaler 1 inh INHALATION QID PRN (Reason: SHORT OF BREATH) Stiolto Respimat 2.5-2.5 mcg/actuation Mist 2 puff INHALATION DAILY PRN (Reason: SHORT OF BREATH) Prolia 60 mg/mL Syringe 60 mg SUBCUT UD Patient Comments: EVERY 6 MONTHS last in april tramadol 50 mg tablet 50 mg PO Q6H PRN (Reason: pain, moderate) Qty: 30 0RF Discharge Orders: Discharge Order (Routine); Ordered 09/04/23 Ordered By: Geovanny Culp Admission Data Admit Date/Time: 09/03/23 09:39 Attending Provider: Geovanny Culp Admit Provider: Geovanny Culp Primary Care Provider: Cordelia Mcmillan Other Providers: Pam Brown; Ramesh Vasquez
== END 2023-09-04 12:09 | disposition home or self-care (01) | DRG 473 ==
LOC: ASU 05:56 → 3E 09:39